=== PATIENT | male | born 1945 | race Hispanic/Latino ===

== ENCOUNTER 2016-10-05 07:35 | Day surgery (SDC) | payer MEDICARE, BC ==
[2016-10-05 08:28] VITALS: BMI 23.8
[2016-10-05 08:39] VITALS: TEMP 98.4
[2016-10-05] MEDS ORDERED: Propofol 10 mg/ml Inj (20 ML) ONE ×2 (10:13→10:21)
[2016-10-05] MEDS ORDERED: Midazolam 2 MG/2 ML VIAL ONE (10:13)
[2016-10-05 18:29] VITALS: O2SAT 95
[2016-10-05 18:39] VITALS: BP 106/74; PULSE 75; RESP 16
== END 2016-10-05 13:10 | disposition home or self-care (01) ==
LOC: C.ENDO 07:35
PROVIDERS: ATTEND Internal Medicine Gastroenterology
DX: D12.3 Benign neoplasm of transverse colon (principal); I85.00 Esophageal varices without bleeding; I86.4 Gastric varices; K22.70 Barrett's esophagus without dysplasia; K29.50 Unspecified chronic gastritis without bleeding; K64.8 Other hemorrhoids
CPT/HCPCS: 43239; 45385; 88305; 88312; 88313; 88342; J2001; J2250; J2704; J3010

== ENCOUNTER 2017-03-20 17:48 | Inpatient (IN) | payer MEDICARE, BC ==
[2017-03-20 17:48] VITALS: BMI 23.8
[2017-03-20] MEDS ORDERED: Dextrose 50% VIAL Inj (50 ml) IV ONE (18:02)
[2017-03-20] MEDS ORDERED: Lactated Ringer's 1,000 ML IVB STA (18:42)
[2017-03-20 19:01] LABS: BASO % 0.3 % (0.0-2.0); EOS % 0.3 % (0.0-4.0); HEMOGLOBIN 11.8 g/dL (12.0-18.0); LYMPH # 2.1 K/uL (1.0-4.3); LYMPH % 20.6 % (20.0-40.0); MEAN CORPUSCULAR HEMOGLOBIN 30.4 pg (27.0-31.0); MEAN CORPUSCULAR HGB CONC 34.3 g/dL (33.0-37.0); MEAN PLATELET VOLUME 8.3 fL (7.2-11.7); MONO # 0.3 K/uL (0.0-0.8); MONO % 2.9 % (0.0-10.0); NEUT # 7.6 K/uL (1.8-7.0); NEUT % 75.9 % (50.0-75.0); NRBC % 0.1 % (0.0-2.0); RBC 3.87 Mil/uL (4.40-5.90); RED CELL DISTRIBUTION WIDTH 13.3 % (11.5-14.5)
[2017-03-20 19:02] LABS: MEAN CELL VOLUME 88.7 fL (80.0-94.0)
[2017-03-20 19:09] LABS: SQUAMOUS EPITHIAL < 1 /hpf (0-5); URINE BACTERIA FEW (<OCC); URINE BILIRUBIN NEGATIVE (NEGATIVE); URINE CLARITY Hazy (Clear); URINE COLOR Amber (YELLOW); URINE GLUCOSE (UA) NORMAL (Normal); URINE HYALINE CAST >20 /lpf (0-2); URINE NITRATE NEGATIVE (NEGATIVE); URINE PROTEIN 1+ mg/dL (NEGATIVE); URINE UROBILINOGEN NORMAL mg/dL (0.2-1.0)
[2017-03-20 19:10] LABS: URINE BLOOD NEGATIVE (NEGATIVE); URINE LEUKOCYTE ESTERASE 1+ Leu/uL (Negative)
[2017-03-20 19:16] LABS: ALB/GLOB RATIO 1.1 (1.0-2.1); ALBUMIN 3.1 g/dL (3.5-5.0); ALT/SGPT 113 U/L (21-72); AST/SGOT 222 U/L (17-59); BLOOD UREA NITROGEN 88 mg/dL (9-20); CALCIUM 7.2 mg/dl (8.6-10.4); GFR AFRICAN-AMERICAN 10; GFR NON-AFRICAN AMERICAN 8; MAGNESIUM 1.5 mg/dL (1.6-2.3)
[2017-03-20 19:23] LABS: BARBITURATES, UR NEGATIVE (NEGATIVE); BENZODIAZEPINES, UR POSITIVE (NEGATIVE); OPIATES, UR POSITIVE (NEGATIVE); PHENCYCLIDINE, UR NEGATIVE (NEGATIVE)
[2017-03-20] MEDS ORDERED: Sodium Chloride 0.9% 1,000 ML IV ONE (19:23)
[2017-03-20 19:27] LABS: CK-MB 52.3 ng/mL (0.0-3.38)
[2017-03-20] MEDS ORDERED: Lactated Ringer's 1,000 ML ONE (20:57)
--- NOTE | 2017-03-20 21:05 | C.PDOC ---
History Of Present Illness Pt stopped taking opioid pain pills (that he was taking for his chronic back pain) 1 week ago. He then started developing N/V/D 3 days ago associate with generalized weakness. Time Seen by Provider: 03/20/17 18:27 Chief Complaint (Nursing): Dizziness/Lightheaded History Per: Patient, Family () History/Exam Limitations: clinical condition Onset/Duration Of Symptoms: Days (3) Current Symptoms Are (Timing): Worse Current Symptoms: Generalized weakness Seizure Or Post-ictal Symptoms: None Possible Causative Factor(s): Decreased PO Intake, Other (N/V/D) Fall Associated With With Symptoms: No Severity: Severe Additional History Per: Prior Records - Symptoms Of CVA Recent Head Trauma: No Past Medical History Reviewed: Historical Data, Nursing Documentation, Vital Signs Vital Signs: Last Vital Signs Temp 98.1 F 03/20/17 18:19 Pulse 90 03/20/17 20:28 Resp 16 03/20/17 20:28 BP 83/42 L 03/20/17 20:28 Pulse Ox 100 03/20/17 20:28 - Medical History PMH: Anxiety, Back Problems, HTN, Hypercholesterolemia, Malignancy (Prostate) - [employer] Procedures DX ULTRASOUND NEC (01/21/13) PERCUTAN NEEDLE BIOPSY OF PROSTATE (01/21/13) Family History: States: Unknown Family Hx - Social History Hx Tobacco Use: Yes Hx Alcohol Use: No Hx Substance Use: No - Immunization History Hx Tetanus Toxoid Vaccination: No Hx Influenza Vaccination: No Hx Pneumococcal Vaccination: No Review Of Systems Except As Marked, All Systems Reviewed And Found Negative. Constitutional: Positive for: Weakness, Malaise Cardiovascular: Positive for: Light Headedness. Negative for: Chest Pain Respiratory: Negative for: Shortness of Breath Gastrointestinal: Positive for: Nausea, Vomiting, Diarrhea. Negative for: Abdominal Pain, Melena, Hematochezia, Hematemesis Musculoskeletal: Positive for: Back Pain (chronic) Neurological: Negative for: Seizures Physical Exam - Physical Exam Appears: Toxic, Other (Lethargic) Skin: Normal Color, Warm, Dry, No Rash Head: Atraumatic, Normacephalic Eye(s): bilateral: PERRL, EOMI Oral Mucosa: Dry Neck: Normal ROM, Supple Cardiovascular: Rhythm Regular Respiratory: Normal Breath Sounds, No Accessory Muscle Use Gastrointestinal/Abdominal: Soft, No Tenderness Extremity: Normal ROM Neurological/Psych: Oriented x3, Normal Sensation, Slow To Respond With Command ED Course And Treatment - Laboratory Results Result Diagrams: 03/20/17 18:56 03/20/17 18:56 Lab Interpretation: Abnormal Interpretation Of Abnormal: Acute renal failure. Elevated CPK level. ECG: Interpreted By Me, Viewed By Me ECG Rhythm: Sinus Rhythm, Nonspecific Changes Rate From EC O2 Sat by Pulse Oximetry: 100 Pulse Ox Interpretation: Normal - Physician Consult Information Physician Contacted: Dustin Connell (ICU) Outcome Of Conversation: He evaluted pt in the ED and admitted to ICU. Progress - Interventions Interventions:: Observation, Intravenous fluid - Data Reviewed Data Reviewed: Lab, EKG, Old records - Patient Status Patient status: Partially improved - Critical Care Citical Care: Excluding Proc Time Critical Care Time: 60 minutes - Continuity of Care Discussed patient case with:: Patient, Family-HIPPA compliant, ED Nurse, Covering for PMD Discussed pt. case with customer support consultant/specialty: Pulmonary/Crit. Care - Patient Plan Patient Plan: Admission, ICU Disposition Discussed With : Edwin Tony Comment: He accepted pt on hospitalist service. Doctor Will See Patient In The: Hospital Counseled Patient/Family Regarding: Studies Performed, Diagnosis - Disposition Disposition: HOSPITALIZED Disposition Time: 21:09 Condition: SERIOUS - Clinical Impression Clinical Impression: Acute renal failure, Dehydration, severe, Rhabdomyolysis
[2017-03-20] MEDS ORDERED: Lactated Ringer's 1,000 ML IV ONE (21:07)
--- NOTE | 2017-03-20 21:07 | CP.PCM.HP ---
<Jojo Hogan - Last Filed: 03/20/17 22:42> History of Present Illness - History of Present Illness History of Present Illness: Medicine Note for Hospitalist Service CC: AMS HPI: 71 yo Male with 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, and Prostate Cancer ( received radiation therapy) was brought into the ED by his due to AMS. was called for history as patient's speech is slurred and incoherent. Patient has been seen by Pain Management for his chronic back pain for the past 6 months. He has been placed on oxycodone QID- he ran out of his medication last week. As per , the past week- patient has been experiencing nausea, vomiting, abdominal pain, diarrhea, weakness, and decrease in appetite. He has not been able to tolerate anything PO - except for water. He started to have tremors that started on Monday- at this point the patient was so fatigued - he was unable to ambulate on his own. As per - who was with him the whole time, patient did not fall or experience any trauma. Patient unable to provide ROS. 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 ( seen by pain management - was placed on Oxy), and Prostate Cancer (received radiation therapy) PSHx: Hernia repair x2, ganglion cyst x 2, left wrist surgery Meds: As per MAR, reviewed with and confirmed + oxycodone All: NKDA SHx: Used to drink 2-3 beers per day for 2-3 years when he was dianosed with prostate cancer ( he quit once he went into remission), denied tobacco use, used to use heroin (last use 2001, after detox) FHx: He was adopted PMD: Zachary Present on Admission - Present on Admission Any Indicators Present on Admission: No Past Patient History - Past Medical History & Family History Past Medical History?: Yes - Past Social History Smoking Status: Heavy Smoker > 10 Cigarettes Daily - CARDIAC Hx Hypercholesterolemia: Yes Hx Hypertension: Yes - PULMONARY Hx Respiratory Disorders: No - NEUROLOGICAL Hx Neurological Disorder: No - HEENT Hx HEENT Problems: No - RENAL Hx Chronic Kidney Disease: No - ENDOCRINE/METABOLIC Hx Endocrine Disorders: No - HEMATOLOGICAL/ONCOLOGICAL Hx Blood Disorders: No - INTEGUMENTARY Hx Dermatological Problems: No - MUSCULOSKELETAL/RHEUMATOLOGICAL Hx Musculoskeletal Disorders: No Hx Back Pain: Yes Hx Herniated Disk: Yes - GASTROINTESTINAL Hx Gastrointestinal Disorders: Yes Hx Hemorrhoids: Yes - GENITOURINARY/GYNECOLOGICAL Hx Genitourinary Disorders: Yes Hx Prostate Cancer: Yes (RADIATION) Hx Prostate Problems: Yes - PSYCHIATRIC Hx Anxiety: Yes Hx Substance Use: No - SURGICAL HISTORY Hx Surgeries: Yes Hx Herniorrhaphy: Yes Hx Orthopedic Surgery: Yes (LT WRIST SX X2) Other/Comment: PROSTATE BX - ANESTHESIA Hx Anesthesia: Yes Hx Anesthesia Reactions: No Hx Malignant Hyperthermia: No Meds Allergies/Adverse Reactions: Allergies Allergy/AdvReac Type Severity Reaction Status Date / Time No Known Allergies Allergy Verified 03/20/17 18:25 Physical Exam - Constitutional Appears: Confused - Head Exam Head Exam: NORMAL INSPECTION - Eye Exam Eye Exam: EOMI, Normal appearance, PERRL Pupil Exam: NORMAL ACCOMODATION - ENT Exam ENT Exam: Mucous Membranes Dry - Neck Exam Neck exam: Positive for: Normal Inspection - Respiratory Exam Respiratory Exam: Clear to Auscultation Bilateral, NORMAL BREATHING PATTERN. absent: Decreased Breath Sounds, Wheezes - Cardiovascular Exam Cardiovascular Exam: Tachycardia - GI/Abdominal Exam GI & Abdominal Exam: Normal Bowel Sounds, Soft. absent: Distended, Tenderness - Extremities Exam Extremities exam: Positive for: normal inspection, pedal pulses present. Negative for: pedal edema, tenderness - Neurological Exam Neurological exam: Alert, Altered, CN II-XII Intact - Psychiatric Exam Psychiatric exam: Normal Affect, Normal Mood - Skin Skin Exam: Dry, Intact, Normal Color, Warm Results - Vital Signs Recent Vital Signs: Last Vital Signs Temp 98.1 F 03/20/17 18:19 Pulse 93 H 03/20/17 21:02 Resp 18 03/20/17 21:02 BP 81/51 L 03/20/17 21:02 Pulse Ox 100 03/20/17 21:05 - Labs Result Diagrams: 03/20/17 18:56 03/20/17 18:56 Labs: Laboratory Results - last 24 hr 03/20/17 03/20/17 03/20/17 18:56 18:56 18:56 WBC 10.0 RBC 3.87 L Hgb 11.8 L D Hct 34.3 L MCV 88.7 D MCH 30.4 MCHC 34.3 RDW 13.3 Plt Count 211 MPV 8.3 Neut % (Auto) 75.9 H Lymph % (Auto) 20.6 Mills % (Auto) 2.9 Eos % (Auto) 0.3 Baso % (Auto) 0.3 Neut # 7.6 H Lymph # 2.1 Mills # 0.3 Eos # 0.0 Baso # 0.0 Sodium 124 L Potassium 3.8 Chloride 94 L Carbon Dioxide 16 L Anion Gap 18 BUN 88 H Creatinine 6.7 H Est GFR ( Amer) 10 Est GFR (Non-Af Amer) 8 POC Glucose (mg/dL) Random Glucose 198 H Calcium 7.2 L Phosphorus 5.7 H Magnesium 1.5 L Total Bilirubin 0.5 AST 222 H ALT 113 H D Alkaline Phosphatase 45 Total Creatine Kinase 20099 H CK-MB (Mass) 52.3 H Troponin I < 0.0120 Total Protein 5.9 L Albumin 3.1 L D Globulin 2.8 Albumin/Globulin Ratio 1.1 Urine Color María Elena Urine Clarity Hazy Urine pH 5.0 Ur Specific [place] 1.016 Urine Protein 1+ H Urine Glucose (UA) Normal Urine Ketones Negative Urine Blood Negative Urine Nitrate Negative Urine Bilirubin Negative Urine Urobilinogen Normal Ur Leukocyte Esterase 1+ H Urine WBC (Auto) 13 H Urine RBC (Auto) 2 Ur Squamous Epith Cells < 1 Ur Transition Epith Cell < 1 Urine Bacteria Few H Hyaline Casts >20 H Urine Opiates Screen Urine Methadone Screen Ur Barbiturates Screen Ur Phencyclidine Scrn Ur Amphetamines Screen U Benzodiazepines Scrn U Oth Cocaine Metabols U Cannabinoids Screen Alcohol, Quantitative < 10 03/20/17 03/20/17 03/20/17 18:56 19:00 20:43 WBC RBC Hgb Hct MCV MCH MCHC RDW Plt Count MPV Neut % (Auto) Lymph % (Auto) Mills % (Auto) Eos % (Auto) Baso % (Auto) Neut # Lymph # Mills # Eos # Baso # Sodium Potassium Chloride Carbon Dioxide Anion Gap BUN Creatinine Est GFR ( Amer) Est GFR (Non-Af Amer) POC Glucose (mg/dL) 197 H 128 H Random Glucose Calcium Phosphorus Magnesium Total Bilirubin AST ALT Alkaline Phosphatase Total Creatine Kinase CK-MB (Mass) Troponin I Total Protein Albumin Globulin Albumin/Globulin Ratio Urine Color Urine Clarity Urine pH Ur Specific [place] Urine Protein Urine Glucose (UA) Urine Ketones Urine Blood Urine Nitrate Urine Bilirubin Urine Urobilinogen Ur Leukocyte Esterase Urine WBC (Auto) Urine RBC (Auto) Ur Squamous Epith Cells Ur Transition Epith Cell Urine Bacteria Hyaline Casts Urine Opiates Screen Positive H Urine Methadone Screen Negative Ur Barbiturates Screen Negative Ur Phencyclidine Scrn Negative Ur Amphetamines Screen Negative U Benzodiazepines Scrn Positive U Oth Cocaine Metabols Negative U Cannabinoids Screen Negative Alcohol, Quantitative Assessment & Plan - Assessment and Plan (Free Text) Assessment: 71 yo Male with 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 Found to have ARF and Rhabdomyolysis. Plan: [place]domy[place]- 12085, CKMB 52.3, UA + hyaline casts LR @ 250 cc/hr Current management as per ICU ARF Secondary to dehydration and rhabdo Baseline BUN/CRE: 20/1.0 BUN/CRE on admission: 88/6.7 Received total 3L fluids in the ED Will continue to monitor renal function and electrolytes- if does not return to baseline - Nephro will be consulted Questionable Infiltrate Pending Chest, abdomen, pelvis CT Started on Doxy and Rocephin as per ICU team Electrolyte Imbalances Transaminitis GERD Hx HTN Will hold medications until patient becomes normotensive Hx HLD Will hold medications due to transaminitis Hx Prostate Cancer Hx Chronic Back Pain Opioid Dependance UDS + Prophylactic Measures GI PPX: Protonix 40mg IVP daily DVT PPX: Heparin Q12, SCDs DW Dr. Tony, Jojo Hogan DO, PGY-1 <Edwin Tony - Last Filed: 03/21/17 06:28> Results - Vital Signs Recent Vital Signs: Last Vital Signs Temp 98.3 F 03/21/17 04:00 Pulse 100 H 03/21/17 02:00 Resp 17 03/21/17 04:00 BP 82/49 L 03/21/17 01:34 Pulse Ox 99 03/21/17 04:00 - Labs Result Diagrams: 03/20/17 23:39 03/20/17 23:39 Labs: Laboratory Results - last 24 hr 03/20/17 03/20/17 03/20/17 18:56 18:56 18:56 WBC 10.0 RBC 3.87 L Hgb 11.8 L D Hct 34.3 L MCV 88.7 D MCH 30.4 MCHC 34.3 RDW 13.3 Plt Count 211 MPV 8.3 Neut % (Auto) 75.9 H Lymph % (Auto) 20.6 Mills % (Auto) 2.9 Eos % (Auto) 0.3 Baso % (Auto) 0.3 Neut # 7.6 H Lymph # 2.1 Mills # 0.3 Eos # 0.0 Baso # 0.0 Sodium 124 L Potassium 3.8 Chloride 94 L Carbon Dioxide 16 L Anion Gap 18 BUN 88 H Creatinine 6.7 H Est GFR ( Amer) 10 Est GFR (Non-Af Amer) 8 POC Glucose (mg/dL) Random Glucose 198 H Calcium 7.2 L Phosphorus 5.7 H Magnesium 1.5 L Total Bilirubin 0.5 AST 222 H ALT 113 H D Alkaline Phosphatase 45 Total Creatine Kinase 18773 H CK-MB (Mass) 52.3 H Troponin I < 0.0120 Total Protein 5.9 L Albumin 3.1 L D Globulin 2.8 Albumin/Globulin Ratio 1.1 Urine Color María Elena Urine Clarity Hazy Urine pH 5.0 Ur Specific [place] 1.016 Urine Protein 1+ H Urine Glucose (UA) Normal Urine Ketones Negative Urine Blood Negative Urine Nitrate Negative Urine Bilirubin Negative Urine Urobilinogen Normal Ur Leukocyte Esterase 1+ H Urine WBC (Auto) 13 H Urine RBC (Auto) 2 Ur Squamous Epith Cells < 1 Ur Transition Epith Cell < 1 Urine Bacteria Few H Hyaline Casts >20 H Urine Opiates Screen Urine Methadone Screen Ur Barbiturates Screen Ur Phencyclidine Scrn Ur Amphetamines Screen U Benzodiazepines Scrn U Oth Cocaine Metabols U Cannabinoids Screen Alcohol, Quantitative < 10 Influenza Typ A,B (EIA) 03/20/17 03/20/17 03/20/17 18:56 19:00 20:43 WBC RBC Hgb Hct MCV MCH MCHC RDW Plt Count MPV Neut % (Auto) Lymph % (Auto) Mills % (Auto) Eos % (Auto) Baso % (Auto) Neut # Lymph # Mills # Eos # Baso # Sodium Potassium Chloride Carbon Dioxide Anion Gap BUN Creatinine Est GFR ( Amer) Est GFR (Non-Af Amer) POC Glucose (mg/dL) 197 H 128 H Random Glucose Calcium Phosphorus Magnesium Total Bilirubin AST ALT Alkaline Phosphatase Total Creatine Kinase CK-MB (Mass) Troponin I Total Protein Albumin Globulin Albumin/Globulin Ratio Urine Color Urine Clarity Urine pH Ur Specific [place] Urine Protein Urine Glucose (UA) Urine Ketones Urine Blood Urine Nitrate Urine Bilirubin Urine Urobilinogen Ur Leukocyte Esterase Urine WBC (Auto) Urine RBC (Auto) Ur Squamous Epith Cells Ur Transition Epith Cell Urine Bacteria Hyaline Casts Urine Opiates Screen Positive H Urine Methadone Screen Negative Ur Barbiturates Screen Negative Ur Phencyclidine Scrn Negative Ur Amphetamines Screen Negative U Benzodiazepines Scrn Positive U Oth Cocaine Metabols Negative U Cannabinoids Screen Negative Alcohol, Quantitative Influenza Typ A,B (EIA) 03/20/17 03/20/17 03/20/17 23:39 23:39 23:56 WBC 9.7 RBC 4.18 L Hgb 12.9 Hct 37.5 MCV 89.6 MCH 30.9 MCHC 34.4 RDW 13.0 Plt Count 203 MPV 8.7 Neut % (Auto) 70.2 Lymph % (Auto) 24.8 Mills % (Auto) 3.9 Eos % (Auto) 0.4 Baso % (Auto) 0.7 Neut # 6.8 Lymph # 2.4 Mills # 0.4 Eos # 0.0 Baso # 0.1 Sodium 131 L Potassium 3.9 Chloride 101 Carbon Dioxide 17 L Anion Gap 16 BUN 80 H Creatinine 5.3 H Est GFR ( Amer) 13 Est GFR (Non-Af Amer) 11 POC Glucose (mg/dL) Random Glucose 75 Calcium 7.6 L Phosphorus 5.5 H Magnesium 1.6 Total Bilirubin 0.5 AST 230 H ALT 125 H Alkaline Phosphatase 48 Total Creatine Kinase CK-MB (Mass) Troponin I < 0.0120 Total Protein 6.3 Albumin 3.4 L Globulin 2.9 Albumin/Globulin Ratio 1.2 Urine Color Urine Clarity Urine pH Ur Specific [place] Urine Protein Urine Glucose (UA) Urine Ketones Urine Blood Urine Nitrate Urine Bilirubin Urine Urobilinogen Ur Leukocyte Esterase Urine WBC (Auto) Urine RBC (Auto) Ur Squamous Epith Cells Ur Transition Epith Cell Urine Bacteria Hyaline Casts Urine Opiates Screen Urine Methadone Screen Ur Barbiturates Screen Ur Phencyclidine Scrn Ur Amphetamines Screen U Benzodiazepines Scrn U Oth Cocaine Metabols U Cannabinoids Screen Alcohol, Quantitative Influenza Typ A,B (EIA) Negative for flu a/b Assessment & Plan - Date & Time Date: 03/21/17 (I have seen and examined the patient. I agree with the findings and plan of care as documented by Dr. Hogan. Patient with rhabdomyolysis and subsequent acute renal failure. Admit to ICU. IVF. Continue to monitor renal function. Consider nephro consult if renal function does not improve with continued IV hydration. Monitor for acute changes.) Time: 06:26 Attending/Attestation - Attestation I have personally seen and examined this patient.: Yes I have fully participated in the care of the patient.: Yes I have reviewed all pertinent clinical information: Yes
--- NOTE | 2017-03-20 22:58 | CT ---
EXAM: CT Chest Without Intravenous Contrast CLINICAL HISTORY: 71 years old, male; Signs and symptoms; Bloating; Cough; Symptoms not specified; Additional info: Infiltrate, ileus, urinary retention TECHNIQUE: Axial computed tomography images of the chest without intravenous contrast. All CT scans at this facility use one or more dose reduction techniques, viz.: automated exposure control; ma/kV adjustment per patient size (including targeted exams where dose is matched to indication; i.e. head); or iterative reconstruction technique. Coronal and sagittal reformatted images were created and reviewed. COMPARISON: No relevant prior studies available. FINDINGS: Limitations: Lack of intravenous contrast. Motion artifact - mild. Lungs: Mild paraseptal emphysematous changes. Multiple scattered patchy groundglass/airspace opacities. Minimal interlobular septal thickening. Pleural space: Trace bilateral pleural effusions/thickening. No pneumothorax. Heart: No cardiomegaly. No significant pericardial effusion. Coronary artery calcifications. Thyroid: Mild heterogeneity. 2.2 x 1.4 x 2.6 cm cyst or nodule within right lobe. Bones/joints: Degenerative changes and scoliosis of spine. No acute fracture. Soft tissues: Unremarkable. Vasculature: [id number] atherosclerotic disease of aorta. No aneurysm. Lymph nodes: Few subcentimeter short axis mediastinal lymph nodes. IMPRESSION: 1. Scattered groundglass/air space opacities. DDX: Pneumonia, pulmonary edema, interstitial lung disease, pneumonitis. Clinical correlation and follow up are recommended. 2. Thyroid nodule. Followup as clinically warranted. 3. Incidental/non-acute findings are described above. EXAM: CT Abdomen and Pelvis Without Intravenous Contrast CLINICAL HISTORY: 71 years old, male; Signs and symptoms; Bloating; Cough; Symptoms not specified; Additional info: Infiltrate, ileus, urinary retention TECHNIQUE: Axial computed tomography images of the abdomen and pelvis without intravenous contrast. All CT scans at this facility use one or more dose reduction techniques, viz.: automated exposure control; ma/kV adjustment per patient size (including targeted exams where dose is matched to indication; i.e. head); or iterative reconstruction technique. Coronal and sagittal reformatted images were created and reviewed. COMPARISON: No relevant prior studies available. FINDINGS: Limitations: Lack of intravenous contrast. Motion artifact - mild. ABDOMEN: Liver: Low-attenuation lesion with benign imaging features. Gallbladder and bile ducts: No calcified stones. No ductal dilation. Pancreas: Unremarkable. No ductal dilation. Spleen: Mild splenomegaly, AP dimension. Adrenals: No mass. Kidneys and ureters: Few probable RIGHT renal cysts. Small curvilinear calcification lower pole of right kidney. No hydronephrosis. Stomach and bowel: Asymmetric mural thickening versus underdistention body of stomach. Segmental areas of mild mural thickening vs underdistention of large bowel. No associated inflammatory stranding. No obstruction. Appendix: No definite findings to suggest acute appendicitis. PELVIS: Bladder: Apparent mild bladder wall thickening. Incomplete distention, limiting evaluation. Air within lumen. Reproductive: Mildly enlarged prostate. ABDOMEN and PELVIS: Intraperitoneal space: No significant fluid collection. No free air. Bones/joints: Degenerative changes and scoliosis of spine. No acute fracture. Soft tissues: Unremarkable. Vasculature: Moderate atherosclerotic disease. No aneurysm. Lymph nodes: No pathologically enlarged lymph nodes. IMPRESSION: 1. Mild colitis versus underdistention. Clinical correlation is needed. 2. Gastric wall thickening versus underdistention. Clinical correlation is needed. 3. Air within bladder lumen/possible wall thickening. Correlate with urinalysis to exclude infection. 4. Liver lesion. No follow-up is necessary. 5. Incidental/non-acute findings are described above.
[2017-03-20] MEDS: Lactated Ringer's 1,000 ML IV SCH (23:02)
[2017-03-20 23:43] LABS: BASO # 0.1 K/uL (0.0-0.2); BASO % 0.7 % (0.0-2.0); EOS % 0.4 % (0.0-4.0); HEMOGLOBIN 12.9 g/dL (12.0-18.0); LYMPH # 2.4 K/uL (1.0-4.3); LYMPH % 24.8 % (20.0-40.0); MEAN CELL VOLUME 89.6 fL (80.0-94.0); MEAN CORPUSCULAR HEMOGLOBIN 30.9 pg (27.0-31.0); MEAN CORPUSCULAR HGB CONC 34.4 g/dL (33.0-37.0); MEAN PLATELET VOLUME 8.7 fL (7.2-11.7); MONO # 0.4 K/uL (0.0-0.8); MONO % 3.9 % (0.0-10.0); NEUT # 6.8 K/uL (1.8-7.0); NEUT % 70.2 % (50.0-75.0); RBC 4.18 Mil/uL (4.40-5.90); WHITE BLOOD COUNT 9.7 K/uL (4.8-10.8)
[2017-03-20 23:56] LABS: ALB/GLOB RATIO 1.2 (1.0-2.1); ALBUMIN 3.4 g/dL (3.5-5.0); ALT/SGPT 125 U/L (21-72); AST/SGOT 230 U/L (17-59); BLOOD UREA NITROGEN 80 mg/dL (9-20); CALCIUM 7.6 mg/dl (8.6-10.4); GFR AFRICAN-AMERICAN 13; GFR NON-AFRICAN AMERICAN 11; MAGNESIUM 1.6 mg/dL (1.6-2.3)
[2017-03-21] MEDS ORDERED: Lactated Ringer's 1,000 ML IV ONE ×2 (01:37→06:18)
--- NOTE | 2017-03-21 01:45 | CP.PCM.CON ---
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 He also took some ibuprofen yesterday. No h/o fever or sick contacts , in ER patient received 2 lits blus fluid as he was severely dry, lab work showed anette, rhabdo, no blood in urine, urinary retention about 1000ml. Patient had tremors, lethargic weak tired but arousable. He has not taken his bp meds for last 2-3 days as well. 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 FHx: Patient is adopted hence not available Review of Systems - Review of Systems All systems: reviewed and no additional remarkable complaints except (HPI) Past Patient History - Past Medical History & Family History Past Medical History?: Yes - Past Social History Smoking Status: Heavy Smoker > 10 Cigarettes Daily Alcohol: None Home Situation {Lives}: With Family Domestic Violence: Negative - CARDIAC Hx Hypercholesterolemia: Yes Hx Hypertension: Yes - PULMONARY Hx Respiratory Disorders: No - NEUROLOGICAL Hx Neurological Disorder: No - HEENT Hx HEENT Problems: No - RENAL Hx Chronic Kidney Disease: No - ENDOCRINE/METABOLIC Hx Endocrine Disorders: No - HEMATOLOGICAL/ONCOLOGICAL Hx Blood Disorders: No - INTEGUMENTARY Hx Dermatological Problems: No - MUSCULOSKELETAL/RHEUMATOLOGICAL Hx Musculoskeletal Disorders: No Hx Back Pain: Yes Hx Herniated Disk: Yes - GASTROINTESTINAL Hx Gastrointestinal Disorders: Yes Hx Hemorrhoids: Yes - GENITOURINARY/GYNECOLOGICAL Hx Genitourinary Disorders: Yes Hx Prostate Cancer: Yes (RADIATION) Hx Prostate Problems: Yes - PSYCHIATRIC Hx Anxiety: Yes Hx Substance Use: No - SURGICAL HISTORY Hx Surgeries: Yes Hx Herniorrhaphy: Yes Hx Orthopedic Surgery: Yes (LT WRIST SX X2) Other/Comment: PROSTATE BX - ANESTHESIA Hx Anesthesia: Yes Hx Anesthesia Reactions: No Hx Malignant Hyperthermia: No Meds Allergies/Adverse Reactions: Allergies Allergy/AdvReac Type Severity Reaction Status Date / Time No Known Allergies Allergy Verified 03/20/17 18:25 - Medications Medications: Current Medications Heparin Sodium (Porcine) (Heparin) 5,000 units SC Q12 VINCE Pantoprazole Sodium (Protonix Inj) 40 mg IVP DAILY VINCE Physical Exam - Additional Findings Additional findings: * HEENT NELLY, very dry tongue * Neck supple * Chest Clear b/l * CVS regular, no gallop or rub * PA reduced bowel sounds, non tender, not distended post urinary cath * Ext no edema * Skin very dry, reduced turgor * [employer] tiered, some involuntary movements, arosable Results - Vital Signs Recent Vital Signs: Last Vital Signs Temp 98.5 F 03/20/17 21:50 Pulse 94 H 03/20/17 21:50 Resp 18 03/20/17 21:50 BP 85/51 L 03/20/17 21:50 Pulse Ox 100 03/20/17 21:50 - Labs Result Diagrams: 03/20/17 23:39 03/20/17 23:39 Labs: Laboratory Results - last 24 hr 03/20/17 03/20/17 03/20/17 18:56 18:56 18:56 WBC 10.0 RBC 3.87 L Hgb 11.8 L D Hct 34.3 L MCV 88.7 D MCH 30.4 MCHC 34.3 RDW 13.3 Plt Count 211 MPV 8.3 Neut % (Auto) 75.9 H Lymph % (Auto) 20.6 [place] % (Auto) 2.9 Eos % (Auto) 0.3 Baso % (Auto) 0.3 Neut # 7.6 H Lymph # 2.1 [place] # 0.3 Eos # 0.0 Baso # 0.0 Sodium 124 L Potassium 3.8 Chloride 94 L Carbon Dioxide 16 L Anion Gap 18 BUN 88 H Creatinine 6.7 H Est GFR ( Amer) 10 Est GFR (Non-Af Amer) 8 POC Glucose (mg/dL) Random Glucose 198 H Calcium 7.2 L Phosphorus 5.7 H Magnesium 1.5 L Total Bilirubin 0.5 AST 222 H ALT 113 H D Alkaline Phosphatase 45 Total Creatine Kinase 94786 H CK-MB (Mass) 52.3 H Troponin I < 0.0120 Total Protein 5.9 L Albumin 3.1 L D Globulin 2.8 Albumin/Globulin Ratio 1.1 Urine Color María Elena Urine Clarity Hazy Urine pH 5.0 Ur Specific [place] 1.016 Urine Protein 1+ H Urine Glucose (UA) Normal Urine Ketones Negative Urine Blood Negative Urine Nitrate Negative Urine Bilirubin Negative Urine Urobilinogen Normal Ur Leukocyte Esterase 1+ H Urine WBC (Auto) 13 H Urine RBC (Auto) 2 Ur Squamous Epith Cells < 1 Ur Transition Epith Cell < 1 Urine Bacteria Few H Hyaline Casts >20 H Urine Opiates Screen Urine Methadone Screen Ur Barbiturates Screen Ur Phencyclidine Scrn Ur Amphetamines Screen U Benzodiazepines Scrn U Oth Cocaine Metabols U Cannabinoids Screen Alcohol, Quantitative < 10 03/20/17 03/20/17 03/20/17 18:56 19:00 20:43 WBC RBC Hgb Hct MCV MCH MCHC RDW Plt Count MPV Neut % (Auto) Lymph % (Auto) [place] % (Auto) Eos % (Auto) Baso % (Auto) Neut # Lymph # [place] # Eos # Baso # Sodium Potassium Chloride Carbon Dioxide Anion Gap BUN Creatinine Est GFR ( Amer) Est GFR (Non-Af Amer) POC Glucose (mg/dL) 197 H 128 H Random Glucose Calcium Phosphorus Magnesium Total Bilirubin AST ALT Alkaline Phosphatase Total Creatine Kinase CK-MB (Mass) Troponin I Total Protein Albumin Globulin Albumin/Globulin Ratio Urine Color Urine Clarity Urine pH Ur Specific [place] Urine Protein Urine Glucose (UA) Urine Ketones Urine Blood Urine Nitrate Urine Bilirubin Urine Urobilinogen Ur Leukocyte Esterase Urine WBC (Auto) Urine RBC (Auto) Ur Squamous Epith Cells Ur Transition Epith Cell Urine Bacteria Hyaline Casts Urine Opiates Screen Positive H Urine Methadone Screen Negative Ur Barbiturates Screen Negative Ur Phencyclidine Scrn Negative Ur Amphetamines Screen Negative U Benzodiazepines Scrn Positive U Oth Cocaine Metabols Negative U Cannabinoids Screen Negative Alcohol, Quantitative Assessment & Plan - Assessment and Plan (Free Text) Assessment: * ANETTE likely prerenal with additional stress of retention, rhabdo, nsaid, and h /o being on ACEI/hctz but not taken for 2 days * Volume loss due to poor intake and diarrhea * Above due to opiod withdrawal as patient running out of his oxycontin * Suspected ileus for diarrhea on exam * CXR showing infiltrate will check CT chest * H/o HTN currently hypotensive, h/o prostate cancer s/p radiation, h/o gerd, Osvaldo's esophagus, spine DJD * Tobacco abuse Plan: * Aggressive IVF avoid hyperchloremic acidosis * one BP improves start low dose methadone * Abd/pelvis CT to check for ileus * Chest CT due to abnormal CXR with suspicion of infiltrate empiric abx started rocephin, doxycycline * Continue hanna * GI/DVT prophylaxis * See orders for detail
[2017-03-21] MEDS: Lactated Ringer's 1,000 ML IV SCH ×4 (05:15→19:09)
--- NOTE | 2017-03-21 06:22 | CP.PCM.PN ---
Subjective - Date & Time of Evaluation Date of Evaluation: 03/21/17 Time of Evaluation: 06:20 - Subjective Subjective: Patient urinating excessively about 4000ml since seen in ER, appears as post ATN or obstructive diuresis, will check spgr, lytes, bolus RL 1 lit, f/u am labs. Objective - Vital Signs/Intake and Output Vital Signs (last 24 hours): Temp Pulse Resp BP Pulse Ox 98.3 F 100 H 17 82/49 L 99 03/21/17 04:00 03/21/17 02:00 03/21/17 04:00 03/21/17 01:34 03/21/17 04:00 Intake and Output: 03/20/17 03/21/17 18:59 06:59 Intake Total 2100 Output Total 1950 Balance 150 - Medications Medications: Current Medications Heparin Sodium (Porcine) (Heparin) 5,000 units SC Q12 [facility] Last Admin: 03/20/17 23:01 Dose: 5,000 units Doxycycline Hyclate 100 mg/ (Sodium Chloride) 100 mls @ 100 mls/hr IVPB Q12H VINCE Last Admin: 03/20/17 23:15 Dose: 100 mls/hr Lactated Ringer's (Lactated Ringer's) 1,000 mls @ 250 mls/hr IV .Q4H VINCE Last Admin: 03/21/17 05:15 Dose: 250 mls/hr Ceftriaxone Sodium 1 gm/ (Sodium Chloride) 100 mls @ 100 mls/hr IVPB DAILY VINCE Lactated Ringer's (Lactated Ringer's) 1,000 mls @ 1,000 mls/hr IV .Q1H ONE Stop: 03/21/17 07:17 Pantoprazole Sodium (Protonix Inj) 40 mg IVP DAILY VINCE - Labs Labs: 03/20/17 23:39 03/20/17 23:39
[2017-03-21 06:56] LABS: BASO # 0.1 K/uL (0.0-0.2); BASO % 0.6 % (0.0-2.0); EOS % 0.3 % (0.0-4.0); HEMOGLOBIN 11.2 g/dL (12.0-18.0); LYMPH # 2.2 K/uL (1.0-4.3); LYMPH % 21.8 % (20.0-40.0); MEAN CELL VOLUME 88.6 fL (80.0-94.0); MEAN CORPUSCULAR HEMOGLOBIN 31.1 pg (27.0-31.0); MEAN CORPUSCULAR HGB CONC 35.1 g/dL (33.0-37.0); MONO # 0.4 K/uL (0.0-0.8); MONO % 4.1 % (0.0-10.0); NEUT # 7.4 K/uL (1.8-7.0); NEUT % 73.2 % (50.0-75.0); RBC 3.59 Mil/uL (4.40-5.90); RED CELL DISTRIBUTION WIDTH 13.2 % (11.5-14.5); WHITE BLOOD COUNT 10.1 K/uL (4.8-10.8)
[2017-03-21 07:01] LABS: URINE BACTERIA RARE (<OCC); URINE BILIRUBIN NEGATIVE (NEGATIVE); URINE BLOOD 3+ (NEGATIVE); URINE CLARITY Clear (Clear); URINE COLOR Yellow (YELLOW); URINE GLUCOSE (UA) NORMAL (Normal); URINE LEUKOCYTE ESTERASE TRACE Leu/uL (Negative); URINE NITRATE NEGATIVE (NEGATIVE); URINE PROTEIN 1+ mg/dL (NEGATIVE); URINE UROBILINOGEN NORMAL mg/dL (0.2-1.0)
[2017-03-21 07:10] LABS: CREATININE, RANDOM URINE 54.9 mg/dL
[2017-03-21 07:22] LABS: ALBUMIN 2.9 g/dL (3.5-5.0); CALCIUM 7.6 mg/dl (8.6-10.4); MAGNESIUM 1.4 mg/dL (1.6-2.3)
--- NOTE | 2017-03-21 08:28 | RAD ---
HISTORY: Renal failure COMPARISON: 01/09/2014 FINDINGS: LUNGS: Lung volumes low-normal. Pulmonary vascular congestion present. Coalescing airspace opacities right perihilar to right upper lung zone are all findings are new. PLEURA: No significant pleural effusion identified, no pneumothorax apparent. CARDIOVASCULAR: Cardiomegaly. Tortuous unfolded calcified thoracic aorta. Pulmonary venous congestion - pulmonary edema suggested OSSEOUS STRUCTURES: Bilateral shoulder arthrosis right greater than left. Scoliosis VISUALIZED UPPER ABDOMEN: Normal. OTHER FINDINGS: None. IMPRESSION: Interval pulmonary venous congestion -pulmonary edema inferred. Cardiomegaly. Volume overload in associations with renal failure probable Right upper lobe coalescent pulmonary edema versus infiltrate. Scoliosis and shoulder arthrosis
[2017-03-21] MEDS ORDERED: Magnesium Oxide 400 mg Tab UD PO ONE (10:48)
--- NOTE | 2017-03-21 11:56 | VASCLAB ---
PROCEDURE: Lower Extremity Venous Duplex Exam. HISTORY: Swelling PRIORS: None. TECHNIQUE: Bilateral common femoral, femoral, popliteal and posterior tibial, peroneal and great saphenous veins were evaluated. Flow was assessed with color Doppler, compressibility, assessment of phasic flow and augmentation response. Report prepared by LOURDES Jane, RVT FINDINGS: RIGHT: 1. Common Femoral Vein: 1.1. Compressibility - Fully compressible: Thrombus - None : Flow - Phasic: Augmentation -Normal: Reflux - None. 2. Femoral Vein: 2.1. Compressibility - Fully compressible: Thrombus - None : Flow - Phasic: Augmentation -Normal: Reflux - None. 3. Popliteal Vein: 3.1. Compressibility - Fully compressible: Thrombus - None : Flow - Phasic: Augmentation -Normal: Reflux - None. 4. Posterior Tibial Vein: 4.1. Compressibility - Fully compressible: Thrombus - None: Flow - Phasic: Augmentation -Normal: Reflux - None. 5. Peroneal Vein: 5.1. Compressibility - Fully compressible: Thrombus - None: Flow - Phasic: Augmentation -Normal: Reflux - None. 6. Great Saphenous Vein: 6.1. Compressibility - Fully compressible: Thrombus - None: Flow - Phasic: Augmentation - Normal: Reflux - None. LEFT: 1. Common Femoral Vein: 1.1. Compressibility - Fully compressible: Thrombus - None: Flow - Phasic: Augmentation -Normal: Reflux - None. 2. Femoral Vein: 2.1. Compressibility - Fully compressible: Thrombus - None: Flow - Phasic: Augmentation -Normal: Reflux - None. 3. Popliteal Vein: 3.1. Compressibility - Fully compressible: Thrombus - None : Flow - Phasic: Augmentation -Normal: Reflux - None. 4. Posterior Tibial Vein: 4.1. Compressibility - Fully compressible: Thrombus - None: Flow - Phasic: Augmentation -Normal: Reflux - None. 5. Peroneal Vein: 5.1. Compressibility - Fully compressible: Thrombus - None: Flow - Phasic: Augmentation -Normal: Reflux - None. 6. Great Saphenous Vein: 6.1. Compressibility - Fully compressible: Thrombus - None: Flow - Phasic: Augmentation - Normal: Reflux - None. OTHER FINDINGS: Right: None significant. Left: None significant. IMPRESSION: Right: No evidence of deep or superficial vein thrombosis of the right lower extremity. Normal valve function noted of the right side. Left: No evidence of deep or superficial vein thrombosis of the left lower extremity. Normal valve function noted of the left side.
--- NOTE | 2017-03-21 12:56 | CP.PCM.CON ---
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 He also took some ibuprofen yesterday. No h/o fever or sick contacts , in ER patient received 2 lits blus fluid as he was severely dry, urinary retention about 1000ml. Patient had tremors, lethargic weak tired but arousable. He has not taken his bp meds for last 2-3 days as well. currently on iv fluids, creatinine improved on labs. 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 FHx: Patient is adopted hence not available Review of Systems - Review of Systems All systems: reviewed and no additional remarkable complaints except (as per HPI ) Past Patient History - Past Medical History & Family History Past Medical History?: Yes - Past Social History Smoking Status: Heavy Smoker > 10 Cigarettes Daily Alcohol: None Home Situation {Lives}: With Family Domestic Violence: Negative - CARDIAC Hx Hypercholesterolemia: Yes Hx Hypertension: Yes - PULMONARY Hx Respiratory Disorders: No - NEUROLOGICAL Hx Neurological Disorder: No - HEENT Hx HEENT Problems: No - RENAL Hx Chronic Kidney Disease: No - ENDOCRINE/METABOLIC Hx Endocrine Disorders: No - HEMATOLOGICAL/ONCOLOGICAL Hx Blood Disorders: No - INTEGUMENTARY Hx Dermatological Problems: No - MUSCULOSKELETAL/RHEUMATOLOGICAL Hx Musculoskeletal Disorders: No Hx Back Pain: Yes Hx Herniated Disk: Yes - GASTROINTESTINAL Hx Gastrointestinal Disorders: Yes Hx Hemorrhoids: Yes - GENITOURINARY/GYNECOLOGICAL Hx Genitourinary Disorders: Yes Hx Prostate Cancer: Yes (RADIATION) Hx Prostate Problems: Yes - PSYCHIATRIC Hx Anxiety: Yes Hx Substance Use: No - SURGICAL HISTORY Hx Surgeries: Yes Hx Herniorrhaphy: Yes Hx Orthopedic Surgery: Yes (LT WRIST SX X2) Other/Comment: PROSTATE BX - ANESTHESIA Hx Anesthesia: Yes Hx Anesthesia Reactions: No Hx Malignant Hyperthermia: No Meds Allergies/Adverse Reactions: Allergies Allergy/AdvReac Type Severity Reaction Status Date / Time No Known Allergies Allergy Verified 03/20/17 18:25 - Medications Medications: Current Medications Heparin Sodium (Porcine) (Heparin) 5,000 units SC Q12 [facility] Last Admin: 03/21/17 09:38 Dose: 5,000 units Doxycycline Hyclate 100 mg/ (Sodium Chloride) 100 mls @ 100 mls/hr IVPB Q12H [facility] Last Admin: 03/21/17 10:52 Dose: 100 mls/hr Ceftriaxone Sodium 1 gm/ (Sodium Chloride) 100 mls @ 100 mls/hr IVPB DAILY [facility] Last Admin: 03/21/17 09:08 Dose: 100 mls/hr Lactated Ringer's (Lactated Ringer's) 1,000 mls @ 125 mls/hr IV .Q8H [facility] Pantoprazole Sodium (Protonix Inj) 40 mg IVP DAILY [facility] Last Admin: 03/21/17 09:38 Dose: 40 mg Physical Exam - Constitutional Appears: Non-toxic, No Acute Distress, Unkempt - Head Exam Head Exam: NORMAL INSPECTION - Eye Exam Eye Exam: Normal appearance Pupil Exam: PERRL - ENT Exam ENT Exam: Mucous Membranes Moist, Normal Exam - Neck Exam Neck exam: Positive for: Normal Inspection - Respiratory Exam Respiratory Exam: Clear to Auscultation Bilateral, NORMAL BREATHING PATTERN - Cardiovascular Exam Cardiovascular Exam: REGULAR RHYTHM, RRR - GI/Abdominal Exam GI & Abdominal Exam: Distended, Normal Bowel Sounds, Soft - Exam Exam: NORMAL INSPECTION (hanna in place) - Extremities Exam Extremities exam: Positive for: normal inspection, pedal pulses present - Neurological Exam Neurological exam: Alert, Oriented x3 - Psychiatric Exam Psychiatric exam: Normal Affect, Normal Mood - Skin Skin Exam: Intact, Normal Color, Warm Results - Vital Signs Recent Vital Signs: Last Vital Signs Temp 98.4 F 03/21/17 08:00 Pulse 100 H 03/21/17 02:00 Resp 17 03/21/17 04:00 BP 82/49 L 03/21/17 01:34 Pulse Ox 99 03/21/17 04:00 - Labs Result Diagrams: 03/21/17 06:48 03/21/17 12:07 Labs: Laboratory Results - last 24 hr 03/20/17 03/20/17 03/20/17 18:56 18:56 18:56 WBC 10.0 RBC 3.87 L Hgb 11.8 L D Hct 34.3 L MCV 88.7 D MCH 30.4 MCHC 34.3 RDW 13.3 Plt Count 211 MPV 8.3 Neut % (Auto) 75.9 H Lymph % (Auto) 20.6 [place] % (Auto) 2.9 Eos % (Auto) 0.3 Baso % (Auto) 0.3 Neut # 7.6 H Lymph # 2.1 [place] # 0.3 Eos # 0.0 Baso # 0.0 Sodium 124 L Potassium 3.8 Chloride 94 L Carbon Dioxide 16 L Anion Gap 18 BUN 88 H Creatinine 6.7 H Est GFR ( Amer) 10 Est GFR (Non-Af Amer) 8 POC Glucose (mg/dL) Random Glucose 198 H Calcium 7.2 L Phosphorus 5.7 H Magnesium 1.5 L Total Bilirubin 0.5 AST 222 H ALT 113 H D Alkaline Phosphatase 45 Total Creatine Kinase 78495 H CK-MB (Mass) 52.3 H Troponin I < 0.0120 Total Protein 5.9 L Albumin 3.1 L D Globulin 2.8 Albumin/Globulin Ratio 1.1 Urine Color María Elena Urine Clarity Hazy Urine pH 5.0 Ur Specific [place] 1.016 Urine Protein 1+ H Urine Glucose (UA) Normal Urine Ketones Negative Urine Blood Negative Urine Nitrate Negative Urine Bilirubin Negative Urine Urobilinogen Normal Ur Leukocyte Esterase 1+ H Urine WBC (Auto) 13 H Urine RBC (Auto) 2 Ur Squamous Epith Cells < 1 Ur Transition Epith Cell < 1 Urine Bacteria Few H Hyaline Casts >20 H Ur Random Creatinine Ur Random Sodium Ur Random Potassium Urine Opiates Screen Urine Methadone Screen Ur Barbiturates Screen Ur Phencyclidine Scrn Ur Amphetamines Screen U Benzodiazepines Scrn U Oth Cocaine Metabols U Cannabinoids Screen Alcohol, Quantitative < 10 Influenza Typ A,B (EIA) 03/20/17 03/20/17 03/20/17 18:56 19:00 20:43 WBC RBC Hgb Hct MCV MCH MCHC RDW Plt Count MPV Neut % (Auto) Lymph % (Auto) [place] % (Auto) Eos % (Auto) Baso % (Auto) Neut # Lymph # [place] # Eos # Baso # Sodium Potassium Chloride Carbon Dioxide Anion Gap BUN Creatinine Est GFR ( Amer) Est GFR (Non-Af Amer) POC Glucose (mg/dL) 197 H 128 H Random Glucose Calcium Phosphorus Magnesium Total Bilirubin AST ALT Alkaline Phosphatase Total Creatine Kinase CK-MB (Mass) Troponin I Total Protein Albumin Globulin Albumin/Globulin Ratio Urine Color Urine Clarity Urine pH Ur Specific [place] Urine Protein Urine Glucose (UA) Urine Ketones Urine Blood Urine Nitrate Urine Bilirubin Urine Urobilinogen Ur Leukocyte Esterase Urine WBC (Auto) Urine RBC (Auto) Ur Squamous Epith Cells Ur Transition Epith Cell Urine Bacteria Hyaline Casts Ur Random Creatinine Ur Random Sodium Ur Random Potassium Urine Opiates Screen Positive H Urine Methadone Screen Negative Ur Barbiturates Screen Negative Ur Phencyclidine Scrn Negative Ur Amphetamines Screen Negative U Benzodiazepines Scrn Positive U Oth Cocaine Metabols Negative U Cannabinoids Screen Negative Alcohol, Quantitative Influenza Typ A,B (EIA) 03/20/17 03/20/17 03/20/17 23:39 23:39 23:56 WBC 9.7 RBC 4.18 L Hgb 12.9 Hct 37.5 MCV 89.6 MCH 30.9 MCHC 34.4 RDW 13.0 Plt Count 203 MPV 8.7 Neut % (Auto) 70.2 Lymph % (Auto) 24.8 [place] % (Auto) 3.9 Eos % (Auto) 0.4 Baso % (Auto) 0.7 Neut # 6.8 Lymph # 2.4 [place] # 0.4 Eos # 0.0 Baso # 0.1 Sodium 131 L Potassium 3.9 Chloride 101 Carbon Dioxide 17 L Anion Gap 16 BUN 80 H Creatinine 5.3 H Est GFR ( Amer) 13 Est GFR (Non-Af Amer) 11 POC Glucose (mg/dL) Random Glucose 75 Calcium 7.6 L Phosphorus 5.5 H Magnesium 1.6 Total Bilirubin 0.5 AST 230 H ALT 125 H Alkaline Phosphatase 48 Total Creatine Kinase CK-MB (Mass) Troponin I < 0.0120 Total Protein 6.3 Albumin 3.4 L Globulin 2.9 Albumin/Globulin Ratio 1.2 Urine Color Urine Clarity Urine pH Ur Specific [place] Urine Protein Urine Glucose (UA) Urine Ketones Urine Blood Urine Nitrate Urine Bilirubin Urine Urobilinogen Ur Leukocyte Esterase Urine WBC (Auto) Urine RBC (Auto) Ur Squamous Epith Cells Ur Transition Epith Cell Urine Bacteria Hyaline Casts Ur Random Creatinine Ur Random Sodium Ur Random Potassium Urine Opiates Screen Urine Methadone Screen Ur Barbiturates Screen Ur Phencyclidine Scrn Ur Amphetamines Screen U Benzodiazepines Scrn U Oth Cocaine Metabols U Cannabinoids Screen Alcohol, Quantitative Influenza Typ A,B (EIA) Negative for flu a/b 03/21/17 03/21/17 03/21/17 06:48 06:49 06:52 WBC 10.1 RBC 3.59 L Hgb 11.2 L Hct 31.8 L MCV 88.6 MCH 31.1 H MCHC 35.1 RDW 13.2 Plt Count 209 MPV 9.0 Neut % (Auto) 73.2 Lymph % (Auto) 21.8 [place] % (Auto) 4.1 Eos % (Auto) 0.3 Baso % (Auto) 0.6 Neut # 7.4 H Lymph # 2.2 Webb # 0.4 Eos # 0.0 Baso # 0.1 Sodium 135 Potassium 4.0 Chloride 106 Carbon Dioxide 18 L Anion Gap 15 BUN 63 H Creatinine 2.8 H Est GFR ( Amer) 27 Est GFR (Non-Af Amer) 23 POC Glucose (mg/dL) Random Glucose 89 Calcium 7.6 L Phosphorus 4.5 Magnesium 1.4 L Total Bilirubin 0.7 AST 185 H ALT 108 H Alkaline Phosphatase 50 Total Creatine Kinase CK-MB (Mass) Troponin I Total Protein 5.8 L Albumin 2.9 L Globulin 2.8 Albumin/Globulin Ratio 1.0 Urine Color Yellow Urine Clarity Clear Urine pH 5.0 Ur Specific [place] 1.010 Urine Protein 1+ H Urine Glucose (UA) Normal Urine Ketones Trace Urine Blood 3+ H Urine Nitrate Negative Urine Bilirubin Negative Urine Urobilinogen Normal Ur Leukocyte Esterase Trace Urine WBC (Auto) 14 H Urine RBC (Auto) 52 H Ur Squamous Epith Cells Ur Transition Epith Cell Urine Bacteria Rare Hyaline Casts Ur Random Creatinine Ur Random Sodium Ur Random Potassium Urine Opiates Screen Urine Methadone Screen Ur Barbiturates Screen Ur Phencyclidine Scrn Ur Amphetamines Screen U Benzodiazepines Scrn U Oth Cocaine Metabols U Cannabinoids Screen Alcohol, Quantitative Influenza Typ A,B (EIA) 03/21/17 03/21/17 06:52 12:07 WBC RBC Hgb Hct MCV MCH MCHC RDW Plt Count MPV Neut % (Auto) Lymph % (Auto) [place] % (Auto) Eos % (Auto) Baso % (Auto) Neut # Lymph # [place] # Eos # Baso # Sodium 134 Potassium 3.5 L Chloride 104 Carbon Dioxide 21 L Anion Gap 12 BUN 50 H Creatinine 2.0 H Est GFR ( Amer) 40 Est GFR (Non-Af Amer) 33 POC Glucose (mg/dL) Random Glucose 92 Calcium 8.0 L Phosphorus Magnesium Total Bilirubin AST ALT Alkaline Phosphatase Total Creatine Kinase CK-MB (Mass) Troponin I Total Protein Albumin Globulin Albumin/Globulin Ratio Urine Color Urine Clarity Urine pH Ur Specific [place] Urine Protein Urine Glucose (UA) Urine Ketones Urine Blood Urine Nitrate Urine Bilirubin Urine Urobilinogen Ur Leukocyte Esterase Urine WBC (Auto) Urine RBC (Auto) Ur Squamous Epith Cells Ur Transition Epith Cell Urine Bacteria Hyaline Casts Ur Random Creatinine 54.9 Ur Random Sodium 86 Ur Random Potassium 11.4 Urine Opiates Screen Urine Methadone Screen Ur Barbiturates Screen Ur Phencyclidine Scrn Ur Amphetamines Screen U Benzodiazepines Scrn U Oth Cocaine Metabols U Cannabinoids Screen Alcohol, Quantitative Influenza Typ A,B (EIA) Assessment & Plan (1) Acute renal failure Status: Acute (2) Dehydration, severe Status: Acute (3) Rhabdomyolysis Status: Acute (4) Urinary retention Status: Acute - Assessment and Plan (Free Text) Assessment: - maintain iv fluids - watch na levels - ua -trend cpk -avoid nephrotoxic meds -void trial and hanna removal -check psa
[2017-03-21] MEDS ORDERED: Potassium Chloride 20 mEq ER Tab PO ONE ×2 (13:15→15:00)
--- NOTE | 2017-03-21 15:40 | CP.PCM.PN ---
Subjective - Date & Time of Evaluation Date of Evaluation: 03/21/17 Time of Evaluation: 14:00 - Subjective Subjective: Medical Attending Note: Patient seen, examined, and case discussed with ICU. Patient seen at bedside with his . Patient permits me to speak in regards to his medical information with his present. Patient reports history of chronic back problems wherein he has been on oxycodone and MScontin for least 6-7 months. Patient ran out of his medications this past Monday. Patient's reports on Monday patient was between throwing up and diarrhea, associated sweats up until Monday day. Patient was unable to tolerate anything by mouth. Patient and do regularly eat take out. ROS; denies headache, denies chest pain, denies palpitations, denies abdominal pain, denies nausea, denies vomitting, patient currently has a hanna at bedside , patient denies numbness, denies thingling. Objective - Vital Signs/Intake and Output Vital Signs (last 24 hours): Temp Pulse Resp BP Pulse Ox 98.4 F 100 H 17 82/49 L 99 03/21/17 08:00 03/21/17 02:00 03/21/17 04:00 03/21/17 01:34 03/21/17 04:00 Intake and Output: 03/21/17 03/21/17 06:59 18:59 Intake Total 2975 2010 Output Total 2430 2560 Balance 545 -550 - Medications Medications: Current Medications Heparin Sodium (Porcine) (Heparin) 5,000 units SC Q12 [facility] Last Admin: 03/21/17 09:38 Dose: 5,000 units Doxycycline Hyclate 100 mg/ (Sodium Chloride) 100 mls @ 100 mls/hr IVPB Q12H [facility] Last Admin: 03/21/17 10:52 Dose: 100 mls/hr Ceftriaxone Sodium 1 gm/ (Sodium Chloride) 100 mls @ 100 mls/hr IVPB DAILY [facility] Last Admin: 03/21/17 09:08 Dose: 100 mls/hr Lactated Ringer's (Lactated Ringer's) 1,000 mls @ 125 mls/hr IV .Q8H [facility] Last Admin: 03/21/17 11:00 Dose: 125 mls/hr Pantoprazole Sodium (Protonix Inj) 40 mg IVP DAILY [facility] Last Admin: 03/21/17 09:38 Dose: 40 mg - Labs Labs: 03/21/17 06:48 03/21/17 12:07 - Constitutional Appears: Non-toxic, No Acute Distress - Head Exam Head Exam: NORMAL INSPECTION - Eye Exam Eye Exam: EOMI - ENT Exam ENT Exam: Mucous Membranes Moist - Respiratory Exam Respiratory Exam: Clear to Ausculation Bilateral, NORMAL BREATHING PATTERN. absent: Rales, Rhonchi, Wheezes - Cardiovascular Exam Cardiovascular Exam: REGULAR RHYTHM, +S1, +S2 - GI/Abdominal Exam GI & Abdominal Exam: Soft, Normal Bowel Sounds. absent: Distended, Firm, Guarding, Rigid, Tenderness, Rebound - Exam Additional comments: has hanna - Extremities Exam Extremities Exam: Normal Capillary Refill. absent: Pedal Edema, Tenderness - Back Exam Back Exam: absent: CVA tenderness (L), CVA tenderness (R) - Neurological Exam Neurological Exam: Alert, Awake, Oriented x3 - Psychiatric Exam Psychiatric exam: Normal Affect, Normal Mood - Skin Skin Exam: Dry, Intact, Normal Color, Warm Assessment and Plan (1) Acute renal failure Status: Acute (2) Hypertension Status: Acute (3) Lipid disorder Status: Acute (4) GERD (gastroesophageal reflux disease) Status: Acute (5) Chronic back pain Status: Acute (6) Narcotic drug use Status: Acute (7) Prostate cancer Status: Acute (8) Rhabdomyolysis Status: Acute (9) Prophylactic measure Status: Acute Attending/Attestation - Attestation I have personally seen and examined this patient.: Yes I have fully participated in the care of the patient.: Yes I have reviewed all pertinent clinical information, including history, physical exam and plan: Yes Notes (Text): Assessment/Plan 1) Acute Renal Failure * Patient initially presented with BUN/Cr: 88/6.7 * Has required multiple fluid boluses in 24 hours * Improving * Patient has Hanna * Patient is making urine * Nephrology (Dr. Ramon) on the case-->help appreciated * CT Chest: scattered ground/glass air space opacities. Thryoid nodule. * CT abdomen/pelvis (03/20/17); mild colitis versus underdistension. Gastric wall thcikiening. Air within bladder lumen/possible wall thickening. liver lesion. * Monitor urine output * LR 125cc/hr 2) Rhabdomyolosis * Total CPK: 37151 * Monitor CPK Daily 3) Transaminitis * Downtrending * Previously on Oxycodone-Tylenol 10-325 (02/18/17) 120 tabs-->30 days * Hepatitis panel ordered 4) Colitis * Suspected secondary to opiate withdrawal * Order for stool culture, ova and parasite, fecal leukocytes, and C. Dif toxin pending * CT abdomen/pelvis (03/20/17); mild colitis versus underdistension. Gastric wall thcikiening. Air within bladder lumen/possible wall thickening. liver lesion. * Rocephin 1 gram IVq daily (active since 03/21/17) * Doxycyline 100mg IVPB Q12H (active since 03/21/17) * Recent endoscopy/colonoscopy by Dr. Coelho's group * EGD: esophageal mucosal chages as ambrose's stage. Biopsied. Non-severe reflux esophagitis. Gastric varcies. gastritis.-->Negative H. pylori, negative dysplasia, positive Ambrose's * Colonoscopy: 4mm polyp and 9mm polyp removed and internal hemorrhoids--> tubular adenoma 5) Hypertension * Patient was previously taking Atenolol/Lisinopril/HCTZ for blood pressure control at home * They are on hold given he was hypotensive on admission 6) History Lipid Disorder * patient is on previously Simvastatin prior home. * On hold during hospitalization * patient is in rhabdomyolysis, unclear if statin is contributing 6) History of Gastritis * Protonix 40mg IV q daily 7) Chronic Back Pain * History of lumbar stenosis, arthritis-->was recommended for neurosurgery in the past but declined; attempted to eval for noninvasive procedure however, expensive for the patient * [facility] * Lyria 100mg Po daily (03/03/17)--90 tabs; 30 days * Oxycodone 15mg ()-->60 tabs--15 days * Xanax 1mg (02/23/17) 90 tabs-->30 days * Morphine sulfate ER 30mg Po (02/18/17) 60 tabs-->30 days * Oxycodone-Tylenol 10-325 (02/18/17) 120 tabs--?30 days 8) History of Prostate Cancer * Sees urology as outpatient 9) Prophylactic measure * protonix 40mg IVP daily * heparin 5000 units [id number] * PT/OT eval * Florastor 250mg PO BID Disposition: discussed with ICU, patient is stable for the floors given improving renal function. will continue to monitor CPK
[2017-03-21] MEDS ORDERED: oxyCODONE 10 mg Immediate Release Tab PO ONE (16:48)
[2017-03-21 17:13] LABS: HEPATITIS A IGM NEGATIVE (NEGATIVE); HEPATITIS B CORE AB Negative (NEGATIVE)
[2017-03-21] MEDS: Saccharomyces Boulardi 250 mg Cap PO SCH (17:19)
[2017-03-21 18:38] LABS: HEPATITIS C ANTIBODY Reactive (NEGATIVE)
[2017-03-21 18:41] LABS: HEPATITIS B SURFACE AG NEGATIVE (NEGATIVE)
--- NOTE | 2017-03-21 23:06 | CARD ---
APPROVED REPORT EXAM: Two-dimensional and M-mode echocardiogram with Doppler and color Doppler. Other Information Quality : TDSRhythm : INDICATION Heroine Abuse/ Prostate CA RISK FACTORS Hypertension Hyperlipidemia 2D DIMENSIONS IVSd0.9 (0.7-1.1cm)LVDd4.1 (3.9-5.9cm) PWd1.0 (0.7-1.1cm)LVDs2.7 (2.5-4.0cm) FS (%) 34.9 %LVEF (%)64.6 (>50%) M-Mode DIMENSIONS Left Atrium (MM)3.69 (2.5-4.0cm)Aortic Root4.00 (2.2-3.7cm) Aortic Cusp Exc.1.62 (1.5-2.0cm) Mitral Valve MV E Fqbyfael27.2cm/sMV A Gewabgtf76.4cm/sE/A ratio1.2 TDI E/Lateral E'0.0E/Medial E'0.0 Tricuspid Valve TR Peak Mgehvgro896ff/sTR Peak Gr.[id number] LEFT VENTRICLE The left ventricle is normal size. There is normal left ventricular wall thickness. Left ventricle systolic function is normal. The Ejection Fraction is 65-70%. There is normal LV segmental wall motion. The left ventricular diastolic function is normal. There is no ventricular septal defect visualized. RIGHT VENTRICLE The right ventricle is normal size. The right ventricular systolic function is normal. ATRIA The left atrium is mildly dilated. The right atrium size is normal. AORTIC VALVE The aortic valve is mildly to moderately sclerotic. The aortic valve is tri-cuspid. No aortic regurgitation is present. There is no aortic valvular stenosis. MITRAL VALVE The mitral valve is normal in structure. There is no evidence of mitral valve prolapse. There is no mitral valve regurgitation noted. TRICUSPID VALVE The tricuspid valve is normal in structure. There is trace tricuspid regurgitation. Right ventricular systolic pressure is estimated at 30-40 mmHg. There is no pulmonary hypertension. PULMONIC VALVE The pulmonic valve is not well visualized. There is no pulmonic valvular regurgitation. GREAT VESSELS The aortic root is mildly enlarged.4.0 The IVC is normal in size and collapses >50% with inspiration. PERICARDIAL EFFUSION There is no pericardial effusion. <Conclusion> Left ventricle systolic function is normal. The Ejection Fraction is 65-70%. The left ventricular diastolic function is normal. There is no pulmonary hypertension. The aortic root is mildly enlarged.4.0
--- NOTE | 2017-03-22 00:07 | CARD ---
APPROVED REPORT EKG Measurement Heart [id number] <Conclusion> Normal sinus rhythm Incomplete right bundle branch block Left anterior fascicular block Abnormal ECG
[2017-03-22] MEDS: Lactated Ringer's 1,000 ML IV SCH ×3 (04:00→20:14)
[2017-03-22 06:40] LABS: BASO % 0.4 % (0.0-2.0); EOS # 0.1 K/uL (0.0-0.7); EOS % 0.8 % (0.0-4.0); HEMOGLOBIN 11.2 g/dL (12.0-18.0); LYMPH # 2.2 K/uL (1.0-4.3); LYMPH % 31.4 % (20.0-40.0); MEAN CORPUSCULAR HEMOGLOBIN 29.9 pg (27.0-31.0); MEAN PLATELET VOLUME 8.6 fL (7.2-11.7); MONO # 0.4 K/uL (0.0-0.8); MONO % 5.7 % (0.0-10.0); NEUT # 4.3 K/uL (1.8-7.0); NEUT % 61.7 % (50.0-75.0); NRBC % 0.1 % (0.0-2.0); RBC 3.75 Mil/uL (4.40-5.90); RED CELL DISTRIBUTION WIDTH 13.1 % (11.5-14.5); WHITE BLOOD COUNT 6.9 K/uL (4.8-10.8)
[2017-03-22 07:34] LABS: ALB/GLOB RATIO 1.1 (1.0-2.1); ALT/SGPT 102 U/L (21-72); AST/SGOT 109 U/L (17-59); BLOOD UREA NITROGEN 32 mg/dL (9-20); GFR AFRICAN-AMERICAN > 60; GFR NON-AFRICAN AMERICAN > 60; MAGNESIUM 1.3 mg/dL (1.6-2.3)
[2017-03-22] MEDS: Saccharomyces Boulardi 250 mg Cap PO SCH ×2 (09:11→17:42)
[2017-03-22 12:50] LABS: C DIFF TOXIN A B NEGATIVE (NEGATIVE)
[2017-03-22 13:04] LABS: FECAL LEUKOCYTES NEGATIVE (NEGATIVE)
[2017-03-22] MEDS: Magnesium Sulfate 1 gm in D5W 1 GM/100 ML BAG IVPB SCH ×2 (13:33→13:34)
--- NOTE | 2017-03-22 14:08 | CP.PCM.PN ---
Subjective - Date & Time of Evaluation Date of Evaluation: 03/22/17 Time of Evaluation: 14:06 - Subjective Subjective: in a chair feels much better family at bedside labs reviewed patient requesting xanax Objective - Vital Signs/Intake and Output Vital Signs (last 24 hours): Temp Pulse Resp BP Pulse Ox 98.7 F 102 H 19 136/85 95 03/22/17 12:00 03/22/17 11:05 03/22/17 07:45 03/22/17 07:45 03/22/17 12:00 Intake and Output: 03/22/17 03/22/17 06:59 18:59 Intake Total 100 635 Output Total 750 400 Balance -650 235 - Medications Medications: Current Medications Heparin Sodium (Porcine) (Heparin) 5,000 units SC Q12 [facility] Last Admin: 03/22/17 09:11 Dose: 5,000 units Doxycycline Hyclate 100 mg/ (Sodium Chloride) 100 mls @ 100 mls/hr IVPB Q12H [facility] Last Admin: 03/22/17 11:00 Dose: 100 mls/hr Ceftriaxone Sodium 1 gm/ (Sodium Chloride) 100 mls @ 100 mls/hr IVPB DAILY [facility] Last Admin: 03/22/17 09:11 Dose: 100 mls/hr Lactated Ringer's (Lactated Ringer's) 1,000 mls @ 125 mls/hr IV .Q8H [facility] Last Admin: 03/22/17 13:33 Dose: 125 mls/hr Pantoprazole Sodium (Protonix Inj) 40 mg IVP DAILY [facility] Last Admin: 03/22/17 09:11 Dose: 40 mg Saccharomyces Boulardii (Florastor) 250 mg PO BID [facility] Last Admin: 03/22/17 09:11 Dose: 250 mg - Labs Labs: 03/22/17 06:27 03/22/17 06:30 - Constitutional Appears: Chronically Ill - Respiratory Exam Respiratory Exam: Clear to Ausculation Bilateral - Cardiovascular Exam Cardiovascular Exam: REGULAR RHYTHM - Extremities Exam Extremities Exam: absent: Pedal Edema Assessment and Plan - Assessment and Plan (Free Text) Assessment: kd due to volume loss, ashley/diuretic/rhabdo improved avoid nsaids continue supportive care replace Magnesium/K
--- NOTE | 2017-03-22 15:16 | PCM.PSYCH ---
Initial Psychiatric Evaluation - Initial Psychiatric Evaluation Type of Admission: Voluntary Legal Status: Capacity Chief Complaint (in patient's own words): "I think I am going through withdrawals" History of Present Illness and Precipitating Events: Psych consult: history of narcotic use/withdrawal The pt is seen, chart reviewed, case discussed with staff Patient is a 71 year old male currently experiencing mild opioid withdrawal symptoms. He is , no children, and lives with his . Patient states he has been taking Oxycodone for some time due to chronic back pain, prescribed by his pain management doctor. On March 12 the patient ran out of his medication and wished to no longer take the pain medication. Following this, his states he began having withdrawal symptoms of diarrhea, muscle cramping, vomiting, chills, aches and runny nose. Now he states he feels much better and only has a slight runny nose and some mild aches and pains. At this time it seems that he has completed detox on his own from the Oxycodone. At this time he is tearful, anxious, and depressed about his current health situation. His states he no longer enjoys things like fishing or golf because his back pain limits his mobility and depresses him further. he is also worried b/c his back is "a mess" and he cannot take opioids anymore. Patient states he has a long history of using heroin. He states it started "around 1966 until I quit at the [place] [facility] in 2001." He has been clean since 2001. He states during the same time of his heroin use disorder he occasionally use pills and cocaine. He denies current alcohol usage. He has been to detox and rehab in the past. PMH: Chronic back pain, HTN, HLD, Prostate CA in remission Past Psych: Anxiety Family Psych Hx: Patient was adopted and has no knowledge of his biological family Current Medications: Active Medications Generic Name Dose Route Start Last Admin Trade Name Freq PRN Reason Stop Dose Admin Heparin Sodium (Porcine) 5,000 units 03/20/17 22:00 03/22/17 09:11 Heparin SC 5,000 units Q12 [facility] Administration Doxycycline Hyclate 100 mg/ 100 mls @ 100 mls/hr 03/20/17 23:00 03/22/17 11: 00 Sodium Chloride IVPB 100 mls/hr Q12H [facility] Administration Ceftriaxone Sodium 1 gm/ 100 mls @ 100 mls/hr 03/21/17 10:00 03/22/17 09:11 Sodium Chloride IVPB 100 mls/hr DAILY [facility] Administration Lactated Ringer's 1,000 mls @ 125 mls/hr 03/21/17 11:00 03/22/17 13:33 Lactated Ringer's IV 125 mls/hr .Q8H [facility] Administration Lorazepam 0.5 mg 03/22/17 18:00 Ativan PO TID [facility] Mirtazapine 7.5 mg 03/22/17 22:00 Remeron PO HS [facility] Pantoprazole Sodium 40 mg 03/21/17 10:00 03/22/17 09:11 Protonix Inj IVP 40 mg DAILY [facility] Administration Saccharomyces Boulardii 250 mg 03/21/17 18:00 03/22/17 09:11 Florastor PO 250 mg BID [facility] Administration Past Psychiatric History - Past Psychiatric History Pertinent Medical Hx (Current Medical&Sleep Prob, Allergies): Allergies Allergy/AdvReac Type Severity Reaction Status Date / Time No Known Allergies Allergy Verified 03/20/17 18:25 Aspir 81 1 tab PO DAILY 08/23/13 Atenolol 50 mg PO DAILY 08/23/13 Lisinopril/Hctz 25 mg-20 mg 1 tab PO DAILY 08/23/13 Omeprazole 20 mg PO DAILY 08/23/13 Rapaflo 8 mg PO DAILY 08/23/13 Simvastatin 40 mg PO DAILY 08/23/13 Review of Systems - Review of Systems All systems: reviewed and no additional remarkable complaints except - Constitutional Constitutional: absent: Chills, Sweats - Neurological Neurological: UNREMARKABLE - Psychiatric Psychiatric: Anxiety, Depression. absent: Hallucinations, Homicidal Ideation, Paranoia, Suicidal Ideation Mental Status Examination - Personal Presentation Personal Presentation: Looks stated age - Affect Affect: Broad - Motor Activity Motor Activity: Calm - Reliability in Providing Information Reliability in Providing Information: Good - Speech Speech: Organized - Mood Mood: Depressed, Anxious - Formal Thought Process Formal Thought Process: No Impairment - Cognitive Functions Orientation: Person, Place, Situation, Time Sensorium: Alert Attention/Concentration: Attentive Abstract Thinking: [place] Estimate of Intelligence: Average Judgement: Intact, as evidence by: Insight regarding need for hospitalization Memory: Recent intact, as evidence by: Ability to recall events of the day, Remote intact, as evidenced by: Abilit to recall sig. 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 diet, exercise, meditation 33 min
[2017-03-22 16:08] VITALS: RESP 20
--- NOTE | 2017-03-22 20:27 | CP.PCM.PN ---
Subjective - Date & Time of Evaluation Date of Evaluation: 03/22/17 Time of Evaluation: 10:27 - Subjective Subjective: Patient seen and examined at bedside .Per nursing no acute events occurred overnight. The patient reports a productive cough (clear phlegm), and some lower back pain. The patient is tolerating diet well and is able to pass his bowels and urinate with no problems. The patient denies any chest pain, shortness of breath, fevers, chills, nausea, vomiting, abdominal pain, or any other complaints. Objective - Vital Signs/Intake and Output Vital Signs (last 24 hours): Temp Pulse Resp BP Pulse Ox 98.4 F 76 20 145/81 95 03/22/17 16:06 03/22/17 16:06 03/22/17 16:06 03/22/17 16:06 03/22/17 16:06 Intake and Output: 03/22/17 03/23/17 18:59 06:59 Intake Total 635 Output Total 400 Balance 235 - Medications Medications: Current Medications Heparin Sodium (Porcine) (Heparin) 5,000 units SC Q12 [facility] Last Admin: 03/22/17 09:11 Dose: 5,000 units Doxycycline Hyclate 100 mg/ (Sodium Chloride) 100 mls @ 100 mls/hr IVPB Q12H [facility] Last Admin: 03/22/17 11:00 Dose: 100 mls/hr Ceftriaxone Sodium 1 gm/ (Sodium Chloride) 100 mls @ 100 mls/hr IVPB DAILY [facility] Last Admin: 03/22/17 09:11 Dose: 100 mls/hr Lactated Ringer's (Lactated Ringer's) 1,000 mls @ 125 mls/hr IV .Q8H [facility] Last Admin: 03/22/17 20:14 Dose: Not Given Lorazepam (Ativan) 0.5 mg PO TID [facility] Last Admin: 03/22/17 17:42 Dose: 0.5 mg Mirtazapine (Remeron) 7.5 mg PO HS [facility] Pantoprazole Sodium (Protonix Inj) 40 mg IVP DAILY [facility] Last Admin: 03/22/17 09:11 Dose: 40 mg Saccharomyces Boulardii (Florastor) 250 mg PO BID [facility] Last Admin: 03/22/17 17:42 Dose: 250 mg - Labs Labs: 03/22/17 06:27 03/22/17 06:30 - Head Exam Head Exam: ATRAUMATIC, NORMAL INSPECTION, NORMOCEPHALIC - Eye Exam Eye Exam: EOMI, Normal appearance, PERRL. absent: Periorbital tenderness Pupil Exam: NORMAL ACCOMODATION, PERRL. absent: Irregular, Unequal - ENT Exam ENT Exam: Mucous Membranes Moist, Normal Exam, Normal Oropharynx - Respiratory Exam Respiratory Exam: Clear to Ausculation Bilateral, NORMAL BREATHING PATTERN. absent: Chest Wall Tenderness, Prolonged Expiratory Phase, Respiratory Distress - Cardiovascular Exam Cardiovascular Exam: REGULAR RHYTHM, RRR, +S1, +S2. absent: Gallop, Rubs - GI/Abdominal Exam GI & Abdominal Exam: Soft, Normal Bowel Sounds. absent: Rigid, Hyperactive Bowel Sounds - Extremities Exam Extremities Exam: Full ROM, Normal Inspection. absent: Joint Swelling, Pedal Edema, Tenderness - Back Exam Back Exam: NORMAL INSPECTION. absent: CVA tenderness (L), CVA tenderness (R), paraspinal tenderness - Neurological Exam Neurological Exam: Alert, Awake, CN II-XII Intact, Normal Gait, Oriented x3 - Psychiatric Exam Psychiatric exam: Normal Affect, Normal Mood - Skin Skin Exam: Dry, Intact, Normal Color, Warm Assessment and Plan - Assessment and Plan (Free Text) Plan: 1) Acute Renal Failure * Patient initially presented with BUN/Cr: 32/1.1 * Continue to improve * Will continue to monitor with serial CMP's * Nephrology (Dr. Ramon) on the case-->help appreciated * CT Chest: scattered ground/glass air space opacities. Thryoid nodule. * CT abdomen/pelvis (03/20/17); mild colitis versus underdistension. Gastric wall thickening. Air within bladder lumen/possible wall thickening. liver lesion. * Monitor urine output * LR 125cc/hr 2) Rhabdomyolosis * Total CPK: 1327. Trending Down. * Continue to monitor CPK Daily 3) Transaminitis * Downtrending * Previously on Oxycodone-Tylenol 10-325 (02/18/17) 120 tabs-->30 days * Hepatitis panel. Hep C reactive. 4) Colitis * Suspected secondary to opiate withdrawal * Order for stool culture, ova and parasite, fecal leukocytes, and C. Dif toxin pending * CT abdomen/pelvis (03/20/17); mild colitis versus underdistension. Gastric wall thcikiening. Air within bladder lumen/possible wall thickening. liver lesion. * Rocephin 1 gram IVq daily (active since 03/21/17) * Doxycyline 100mg IVPB Q12H (active since 03/21/17) * Recent endoscopy/colonoscopy by Dr. Coelho's group * EGD: esophageal mucosal chages as ambrose's stage. Biopsied. Non-severe reflux esophagitis. Gastric varcies. gastritis.-->Negative H. pylori, negative dysplasia, positive Ambrose's * Colonoscopy: 4mm polyp and 9mm polyp removed and internal hemorrhoids--> tubular adenoma 5) Hypertension * Patient was previously taking Atenolol/Lisinopril/HCTZ for blood pressure control at home * Will continue to hold and reasses blood pressure in the A.M. 6) History Lipid Disorder * Continue to hold Simvastatin * patient is in rhabdomyolysis, unclear if statin is contributing 6) History of Gastritis * Continue Protonix 40mg IV q daily 7) Chronic Back Pain * History of lumbar stenosis, arthritis-->was recommended for neurosurgery in the past but declined; attempted to eval for noninvasive procedure however, expensive for the patient * [facility] * Lyria 100mg Po daily (03/03/17)--90 tabs; 30 days * Oxycodone 15mg ()-->60 tabs--15 days * Xanax 1mg (02/23/17) 90 tabs-->30 days * Morphine sulfate ER 30mg Po (02/18/17) 60 tabs-->30 days * Oxycodone-Tylenol 10-325 (02/18/17) 120 tabs--?30 days 8) History of Prostate Cancer * Sees urology as outpatient 9) Prophylactic measure * protonix 40mg IVP daily * heparin 5000 units [id number] * PT/OT eval * Florastor 250mg PO BID Disposition: Patient moved to floors given improving renal function. will continue to monitor CPK.
[2017-03-23] MEDS: Lactated Ringer's 1,000 ML IV SCH ×2 (03:09→11:08)
--- NOTE | 2017-03-23 10:31 | CP.PCM.PN ---
Subjective - Date & Time of Evaluation Date of Evaluation: 03/23/17 Time of Evaluation: 10:28 - Subjective Subjective: Still c/o diarrhea- c.diff negative ANETTE has resolved- creat 1.1 CPK decreased as well mainly c/o abdominal pains , diarrhea UO has been good Objective - Vital Signs/Intake and Output Vital Signs (last 24 hours): Temp Pulse Resp BP Pulse Ox 97.9 F 106 H 20 146/82 95 03/23/17 07:35 03/23/17 07:35 03/23/17 07:35 03/23/17 07:35 03/23/17 07:35 Intake and Output: 03/23/17 03/23/17 06:59 18:59 Intake Total 1000 Balance 1000 - Medications Medications: Current Medications Heparin Sodium (Porcine) (Heparin) 5,000 units SC Q12 [facility] Last Admin: 03/22/17 22:34 Dose: 5,000 units Doxycycline Hyclate 100 mg/ (Sodium Chloride) 100 mls @ 100 mls/hr IVPB Q12H [facility] Last Admin: 03/22/17 22:34 Dose: 100 mls/hr Ceftriaxone Sodium 1 gm/ (Sodium Chloride) 100 mls @ 100 mls/hr IVPB DAILY [facility] Last Admin: 03/22/17 09:11 Dose: 100 mls/hr Lactated Ringer's (Lactated Ringer's) 1,000 mls @ 125 mls/hr IV .Q8H [facility] Last Admin: 03/23/17 03:09 Dose: 125 mls/hr Lorazepam (Ativan) 0.5 mg PO TID [facility] Last Admin: 03/22/17 17:42 Dose: 0.5 mg Mirtazapine (Remeron) 7.5 mg PO HS [facility] Last Admin: 03/22/17 22:34 Dose: 7.5 mg Pantoprazole Sodium (Protonix Inj) 40 mg IVP DAILY [facility] Last Admin: 03/22/17 09:11 Dose: 40 mg Saccharomyces Boulardii (Florastor) 250 mg PO BID [facility] Last Admin: 03/22/17 17:42 Dose: 250 mg - Labs Labs: 03/22/17 06:27 03/22/17 06:30 - Constitutional Appears: No Acute Distress, Chronically Ill - Head Exam Head Exam: ATRAUMATIC, NORMAL INSPECTION - Eye Exam Eye Exam: EOMI, Normal appearance - Neck Exam Neck Exam: Normal Inspection. absent: Tenderness - Cardiovascular Exam Cardiovascular Exam: REGULAR RHYTHM, +S1 - GI/Abdominal Exam GI & Abdominal Exam: Soft, Tenderness - Extremities Exam Extremities Exam: Normal Inspection. absent: Tenderness - Neurological Exam Neurological Exam: Alert, CN II-XII Intact - Skin Skin Exam: Dry, Warm Assessment and Plan (1) Acute renal failure Status: Acute (2) Dehydration, severe Status: Acute (3) Rhabdomyolysis Status: Acute - Assessment and Plan (Free Text) Plan: Follow up chemistries given fair diuresis /etiology diarrhea unclear ANETTE has resolved
[2017-03-23] MEDS: Saccharomyces Boulardi 250 mg Cap PO SCH ×2 (11:05→17:48)
[2017-03-23 12:13] LABS: BASO % 0.3 % (0.0-2.0); EOS # 0.1 K/uL (0.0-0.7); EOS % 1.2 % (0.0-4.0); HEMOGLOBIN 11.9 g/dL (12.0-18.0); LYMPH # 2.2 K/uL (1.0-4.3); LYMPH % 27.6 % (20.0-40.0); MEAN CELL VOLUME 88.5 fL (80.0-94.0); MEAN PLATELET VOLUME 8.3 fL (7.2-11.7); MONO # 0.6 K/uL (0.0-0.8); MONO % 6.9 % (0.0-10.0); NEUT # 5.2 K/uL (1.8-7.0); RBC 3.85 Mil/uL (4.40-5.90); RED CELL DISTRIBUTION WIDTH 13.1 % (11.5-14.5); WHITE BLOOD COUNT 8.1 K/uL (4.8-10.8)
[2017-03-23 12:18] LABS: BLOOD UREA NITROGEN 14 mg/dL (9-20); GFR AFRICAN-AMERICAN > 60; GFR NON-AFRICAN AMERICAN > 60
[2017-03-23 12:19] LABS: ALB/GLOB RATIO 1.1 (1.0-2.1); ALBUMIN 3.2 g/dL (3.5-5.0); ALT/SGPT 88 U/L (21-72); AST/SGOT 69 U/L (17-59); CALCIUM 8.8 mg/dl (8.6-10.4); MAGNESIUM 1.4 mg/dL (1.6-2.3)
--- NOTE | 2017-03-23 13:52 | PCM.PYCHPN ---
Psychiatric Progress Note - Psychiatric Progress Note Patient seen today, length of contact: 16 min Patient Chief Complaint: "I don't feel well" Problems Identified/Issues Discussed: The patient is seen, chart reviewed and case discussed. Patient complains of diarrhea with [address] Sumner is contacted and she thinks this is because of change in diet, not withdrawal. And indeed the patient has no other withdrawal symptoms other than anxiety and irritability. He too agrees that this is not opiate withdrawal. Current meds help but he still is anxious. Support given psychoeducation given. Medication Change: No Medical Record Reviewed: Yes Mental Status Examination - Cognitive Function Orientation: Person, Place, Situation, Time Memory: Intact Attention: WNL Concentration: Poor Association: WNL Fund of Knowledge: WNL - Mood Mood: Depressed, Anxious - Affect Affect: Broad - Speech Speech: Appropriate - Formal Thought Process Formal Thought Process: No Impairment - Suicidal Ideation Suicidal Ideation: No - Homicidal Ideation Homicidal Ideation: No Goal/Treatment Plan - Goal/Treatment Plan Need for Continued Stay: Other (medical) Progress Toward Problem(s) and Goals/Treatment Plan: Patient started on Ativan 0.5mg tid as he was on xanax, similar dose, previously and is still anxious Started remeron 7.5mg for sleep and depression - to be increased to 15 mg in 4 days Psychoeducation and support Encourage compliance with meds and after care Teach healthy lifestyle methods, i.e. diet, exercise, meditation
[2017-03-23] MEDS ORDERED: Potassium Chloride 20 mEq ER Tab PO ONE (15:15)
[2017-03-23] MEDS: Magnesium Sulfate 1 gm in D5W 1 GM/100 ML BAG IVPB SCH ×2 (16:00→17:49)
--- NOTE | 2017-03-23 16:58 | CP.PCM.PN ---
Subjective - Date & Time of Evaluation Date of Evaluation: 03/23/17 Time of Evaluation: 08:23 - Subjective Subjective: Dr. Sumner's Hospitalist Service, Asif Atkinson Sugar Controller-PGY1 Patient was seen and examined at bedside. Per nursing no acute events occurred overnight. The patient reports diarrhea since eating some chicken yesterday. The patient denies any chest pain, shortness of breath, nausea, vomiting, lightheadedness, dizziness, fevers, chills, changes in vision, headaches, or any other complaints. Objective - Vital Signs/Intake and Output Vital Signs (last 24 hours): Temp Pulse Resp BP Pulse Ox 97.3 F L 73 20 143/82 95 03/23/17 15:00 03/23/17 15:00 03/23/17 15:00 03/23/17 15:00 03/23/17 15:00 Intake and Output: 03/23/17 03/23/17 06:59 18:59 Intake Total 1000 Balance 1000 - Medications Medications: Current Medications Heparin Sodium (Porcine) (Heparin) 5,000 units SC Q12 [facility] Last Admin: 03/23/17 11:06 Dose: 5,000 units Doxycycline Hyclate 100 mg/ (Sodium Chloride) 100 mls @ 100 mls/hr IVPB Q12H [facility] Last Admin: 03/23/17 12:20 Dose: 100 mls/hr Ceftriaxone Sodium 1 gm/ (Sodium Chloride) 100 mls @ 100 mls/hr IVPB DAILY [facility] Last Admin: 03/23/17 11:05 Dose: 100 mls/hr Lorazepam (Ativan) 0.5 mg PO TID [facility] Last Admin: 03/23/17 14:23 Dose: 0.5 mg Mirtazapine (Remeron) 7.5 mg PO HS [facility] Last Admin: 03/22/17 22:34 Dose: 7.5 mg Pantoprazole Sodium (Protonix Inj) 40 mg IVP DAILY [facility] Last Admin: 03/23/17 11:05 Dose: 40 mg Saccharomyces Boulardii (Florastor) 250 mg PO BID [facility] Last Admin: 03/23/17 11:05 Dose: 250 mg - Labs Labs: 03/23/17 11:53 03/23/17 11:53 - Head Exam Head Exam: ATRAUMATIC, NORMAL INSPECTION, NORMOCEPHALIC - Eye Exam Eye Exam: EOMI, Normal appearance, PERRL. absent: Periorbital tenderness Pupil Exam: NORMAL ACCOMODATION, PERRL. absent: Irregular, Unequal - ENT Exam ENT Exam: Mucous Membranes Moist, Normal Oropharynx - Neck Exam Neck Exam: Normal Inspection. absent: Lymphadenopathy, Thyromegaly - Respiratory Exam Respiratory Exam: Clear to Ausculation Bilateral, NORMAL BREATHING PATTERN. absent: Chest Wall Tenderness, Prolonged Expiratory Phase, Respiratory Distress - Cardiovascular Exam Cardiovascular Exam: REGULAR RHYTHM, RRR, +S1, +S2. absent: Gallop, Rubs - GI/Abdominal Exam GI & Abdominal Exam: Tenderness, Normal Bowel Sounds. absent: Rigid, Hyperactive Bowel Sounds - Extremities Exam Extremities Exam: absent: Joint Swelling, Pedal Edema, Tenderness - Neurological Exam Neurological Exam: Alert, Awake, CN II-XII Intact, Oriented x3 - Psychiatric Exam Psychiatric exam: Normal Affect, Normal Mood - Skin Skin Exam: Dry, Intact, Normal Color, Warm. absent: Erythema, Rash Assessment and Plan - Assessment and Plan (Free Text) Plan: 1) Acute Renal Failure * Patient initially presented with BUN/Cr: 14/0.8 * Continuing to improve * Will continue to monitor with serial CMP's * Nephrology (Dr. Ramon) on the case-->help appreciated * CT Chest: scattered ground/glass air space opacities. Thryoid nodule. * CT abdomen/pelvis (03/20/17); mild colitis versus underdistension. Gastric wall thickening. Air within bladder lumen/possible wall thickening. liver lesion. * Monitor urine output * Continue LR 125cc/hr 2) Rhabdomyolosis * Total CPK: 546. Trending Down. * Continue to monitor CPK Daily 3) Transaminitis * Downtrending * Previously on Oxycodone-Tylenol 10-325 (02/18/17) 120 tabs-->30 days * Hepatitis panel. Hep C reactive. 4) Colitis * Suspected secondary to opiate withdrawal * Order for stool culture, ova and parasite, fecal leukocytes, and C. Dif toxin pending * CT abdomen/pelvis (03/20/17); mild colitis versus underdistension. Gastric wall thcikiening. Air within bladder lumen/possible wall thickening. liver lesion. * Rocephin 1 gram IVq daily (active since 03/21/17) * Doxycyline 100mg IVPB Q12H (active since 03/21/17) * Recent endoscopy/colonoscopy by Dr. Coelho's group * EGD: esophageal mucosal chages as ambrose's stage. Biopsied. Non-severe reflux esophagitis. Gastric varcies. gastritis.-->Negative H. pylori, negative dysplasia, positive Ambrose's * Colonoscopy: 4mm polyp and 9mm polyp removed and internal hemorrhoids--> tubular adenoma -Experienced new onset diarrhea late last night. Diet changed to soft. C. diff ordered. Will f/u with results. 5) Hypertension * Patient was previously taking Atenolol/Lisinopril/HCTZ for blood pressure control at home * Will continue to hold and reasses blood pressure in the A.M. 6) History Lipid Disorder * Continue to hold Simvastatin * patient is in rhabdomyolysis, unclear if statin is contributing 6) History of Gastritis * Continue Protonix 40mg IV q daily 7) Chronic Back Pain * History of lumbar stenosis, arthritis-->was recommended for neurosurgery in the past but declined; attempted to eval for noninvasive procedure however, expensive for the patient * Per [facility], 03/11/17 * Lyria 100mg Po daily (03/03/17)--90 tabs; 30 days * Oxycodone 15mg ()-->60 tabs--15 days * Xanax 1mg (02/23/17) 90 tabs-->30 days * Morphine sulfate ER 30mg Po (02/18/17) 60 tabs-->30 days * Oxycodone-Tylenol 10-325 (02/18/17) 120 tabs--?30 days 8) History of Prostate Cancer * Sees urology as outpatient 9) Prophylactic measure * protonix 40mg IVP daily * heparin 5000 units [id number] * PT/OT eval * Florastor 250mg PO BID Disposition: Patient seen by Physical Therapy and seen recommended DEE/TCU. Expected to be discharged tomorrow morning to Rehab.
[2017-03-24 08:28] LABS: ALB/GLOB RATIO 1.2 (1.0-2.1); ALBUMIN 2.9 g/dL (3.5-5.0); ALT/SGPT 68 U/L (21-72); AST/SGOT 44 U/L (17-59); BLOOD UREA NITROGEN 10 mg/dL (9-20); CALCIUM 8.6 mg/dl (8.6-10.4); GFR AFRICAN-AMERICAN > 60; GFR NON-AFRICAN AMERICAN > 60; MAGNESIUM 1.4 mg/dL (1.6-2.3)
[2017-03-24] MEDS ORDERED: Magnesium Sulfate 1 gm in D5W 1 GM/100 ML BAG IVPB ONE (10:00)
[2017-03-24] MEDS ORDERED: Potassium Chloride 20 mEq ER Tab PO SCH (10:00)
[2017-03-24] MEDS: Saccharomyces Boulardi 250 mg Cap PO SCH (10:32)
[2017-03-24] MEDS ORDERED: Potassium Chloride 20 mEq ER Tab PO ONE (10:44)
--- NOTE | 2017-03-24 10:52 | PCM.PYCHPN ---
Psychiatric Progress Note - Psychiatric Progress Note Patient seen today, length of contact: 16 min Patient Chief Complaint: "I am better this morning" Problems Identified/Issues Discussed: The patient is seen, chart reviewed and case discussed. He is going to a rehab and doing better - but appetite is low and sleep is still disturbed due to prostate and some diarrhea Anxiety is under control with ativan Support given No acute psych sxs Psych will sign off Medication Change: No Medical Record Reviewed: Yes Mental Status Examination - Cognitive Function Orientation: Person, Place, Situation, Time Memory: Intact Attention: WNL Concentration: WNL Association: WNL Fund of Knowledge: WNL - Mood Mood: Anxious - Affect Affect: Broad - Speech Speech: Appropriate - Formal Thought Process Formal Thought Process: No Impairment - Suicidal Ideation Suicidal Ideation: No - Homicidal Ideation Homicidal Ideation: No Goal/Treatment Plan - Goal/Treatment Plan Need for Continued Stay: Other (medical) Progress Toward Problem(s) and Goals/Treatment Plan: Patient is on Ativan 0.5mg tid Remeron 15 mg now Psychoeducation and support Encourage compliance with meds and after care Teach healthy lifestyle methods, i.e. diet, exercise, meditation Psych will sign off
--- NOTE | 2017-03-24 14:13 | CP.PCM.PN ---
Subjective - Date & Time of Evaluation Date of Evaluation: 03/24/17 Time of Evaluation: 14:10 - Subjective Subjective: Doing better; ANETTE has resolved BP better Likely for rehab transfer Discussed with PMD- can resume prior BP meds Objective - Vital Signs/Intake and Output Vital Signs (last 24 hours): Temp Pulse Resp BP Pulse Ox 98.2 F 118 H 20 144/83 95 03/24/17 07:30 03/24/17 07:30 03/24/17 07:30 03/24/17 07:30 03/24/17 07:30 Intake and Output: 03/24/17 03/24/17 06:59 18:59 Intake Total 1999 Balance 1999 - Medications Medications: Current Medications Doxycycline Hyclate 100 mg/ (Sodium Chloride) 100 mls @ 100 mls/hr IVPB Q12H [facility] Last Admin: 03/24/17 11:30 Dose: 100 mls/hr Ceftriaxone Sodium 1 gm/ (Sodium Chloride) 100 mls @ 100 mls/hr IVPB DAILY [facility] Last Admin: 03/24/17 10:32 Dose: 100 mls/hr Lorazepam (Ativan) 0.5 mg PO TID [facility] Last Admin: 03/24/17 10:35 Dose: 0.5 mg Mirtazapine (Remeron) 15 mg PO HS [facility] Pantoprazole Sodium (Protonix Ec Tab) 40 mg PO DAILY [facility] Saccharomyces Boulardii (Florastor) 250 mg PO BID [facility] Last Admin: 03/24/17 10:32 Dose: 250 mg - Labs Labs: 03/23/17 11:53 03/24/17 07:25 - Constitutional Appears: No Acute Distress, Chronically Ill - Head Exam Head Exam: ATRAUMATIC, NORMAL INSPECTION - Eye Exam Eye Exam: EOMI, Normal appearance - Neck Exam Neck Exam: Normal Inspection. absent: Tenderness - Respiratory Exam Respiratory Exam: Clear to Ausculation Bilateral, NORMAL BREATHING PATTERN - Cardiovascular Exam Cardiovascular Exam: REGULAR RHYTHM, +S1 - GI/Abdominal Exam GI & Abdominal Exam: Soft. absent: Tenderness - Extremities Exam Extremities Exam: Normal Inspection. absent: Tenderness - Neurological Exam Neurological Exam: Alert, CN II-XII Intact - Skin Skin Exam: Dry, Warm Assessment and Plan (1) Acute renal failure Status: Resolved (2) Dehydration, severe Status: Resolved (3) Rhabdomyolysis Status: Resolved - Assessment and Plan (Free Text) Plan: Agree with disposition plans If BP problematic can follow up as outpt
[2017-03-24 16:24] VITALS: BP 128/89; PULSE 105; TEMP 98.4; O2SAT 97
--- NOTE | 2017-03-24 18:29 | CP.PCM.DIS ---
Provider - Provider Date of Admission: 03/20/17 21:10 Attending physician: Toshia Sumner DO Primary care physician: PMD:Unknown Consults: Nephrology (Dr. Ramon), Psychiatry (Dr. Kincaid) Time Spent in preparation of Discharge (in minutes): 45 Hospital Course - Lab Results Lab Results: Micro Results 03/21/17 16:07 Stool Stool Culture - Final NO SALMONELLA, SHIGELLA OR CAMPYLOBACTER ISOLATED. 03/21/17 16:07 Stool Ova and Parasite Concentrate Exam - Final 03/20/17 22:48 Blood-Venous Blood Culture - Preliminary NO GROWTH AFTER 3 DAYS 03/20/17 22:48 Blood-Venous Blood Culture - Preliminary NO GROWTH AFTER 3 DAYS 03/20/17 22:26 Nose MRSA Culture (Admit) - Final MRSA NOT DETECTED Most Recent Lab Values WBC 8.1 K/uL (4.8-10.8) 03/23/17 11:53 RBC 3.85 Mil/uL (4.40-5.90) L 03/23/17 11:53 Hgb 11.9 g/dL (12.0-18.0) L 03/23/17 11:53 Hct 34.1 % (35.0-51.0) L 03/23/17 11:53 MCV 88.5 fL (80.0-94.0) 03/23/17 11:53 MCH 31.0 pg (27.0-31.0) 03/23/17 11:53 MCHC 35.0 g/dL (33.0-37.0) 03/23/17 11:53 RDW 13.1 % (11.5-14.5) 03/23/17 11:53 Plt Count 219 K/uL (130-400) 03/23/17 11:53 MPV 8.3 fL (7.2-11.7) 03/23/17 11:53 Neut % (Auto) 64.0 % (50.0-75.0) 03/23/17 11:53 Lymph % (Auto) 27.6 % (20.0-40.0) 03/23/17 11:53 [place] % (Auto) 6.9 % (0.0-10.0) 03/23/17 11:53 Eos % (Auto) 1.2 % (0.0-4.0) 03/23/17 11:53 Baso % (Auto) 0.3 % (0.0-2.0) 03/23/17 11:53 Neut # 5.2 K/uL (1.8-7.0) 03/23/17 11:53 Lymph # 2.2 K/uL (1.0-4.3) 03/23/17 11:53 [place] # 0.6 K/uL (0.0-0.8) 03/23/17 11:53 Eos # 0.1 K/uL (0.0-0.7) 03/23/17 11:53 Baso # 0.0 K/uL (0.0-0.2) 03/23/17 11:53 Sodium 137 mmol/L (132-148) 03/24/17 07:25 Potassium 3.5 mmol/L (3.6-5.2) L 03/24/17 07:25 Chloride 107 mmol/L (98-107) 03/24/17 07:25 Carbon Dioxide 26 mmol/L (22-30) 03/24/17 07:25 Anion Gap 8 (10-20) L 03/24/17 07:25 BUN 10 mg/dL (9-20) 03/24/17 07:25 Creatinine 0.8 mg/dL (0.8-1.5) 03/24/17 07:25 Est GFR ( Amer) > 60 03/24/17 07:25 Est GFR (Non-Af Amer) > 60 03/24/17 07:25 POC Glucose (mg/dL) 128 mg/dL (65-110) H 03/20/17 20:43 Random Glucose 96 mg/dL (75-110) 03/24/17 07:25 Calcium 8.6 mg/dl (8.6-10.4) 03/24/17 07:25 Phosphorus 2.7 mg/dL (2.5-4.5) 03/24/17 07:25 Magnesium 1.4 mg/dL (1.6-2.3) L 03/24/17 07:25 Total Bilirubin 0.7 mg/dL (0.2-1.3) 03/24/17 07:25 AST 44 U/L (17-59) 03/24/17 07:25 ALT 68 U/L (21-72) 03/24/17 07:25 Alkaline Phosphatase 41 U/L (38-126) 03/24/17 07:25 Total Creatine Kinase 224 U/L (55-170) H 03/24/17 07:25 CK-MB (Mass) 52.3 ng/mL (0.0-3.38) H 03/20/17 18:56 Troponin I < 0.0120 ng/mL (0.00-0.120) 03/20/17 23:39 Total Protein 5.4 g/dL (6.3-8.3) L 03/24/17 07:25 Albumin 2.9 g/dL (3.5-5.0) L 03/24/17 07:25 Globulin 2.5 gm/dL (2.2-3.9) 03/24/17 07:25 Albumin/Globulin Ratio 1.2 (1.0-2.1) 03/24/17 07:25 Prostate Specific Ag 0.698 ng/mL (0.00-4.0) 03/22/17 06:30 Procalcitonin 2.21 NG/ML (0.19-0.49) H 03/20/17 23:39 Urine Color Yellow (YELLOW) 03/21/17 06:52 Urine Clarity Clear (Clear) 03/21/17 06:52 Urine pH 5.0 (5.0-8.0) 03/21/17 06:52 Ur Specific [place] 1.010 (1.003-1.030) 03/21/17 06:52 Urine Protein 1+ mg/dL (NEGATIVE) H 03/21/17 06:52 Urine Glucose (UA) Normal mg/dL (Normal) 03/21/17 06:52 Urine Ketones Trace mg/dL (NEGATIVE) 03/21/17 06:52 Urine Blood 3+ (NEGATIVE) H 03/21/17 06:52 Urine Nitrate Negative (NEGATIVE) 03/21/17 06:52 Urine Bilirubin Negative (NEGATIVE) 03/21/17 06:52 Urine Urobilinogen Normal mg/dL (0.2-1.0) 03/21/17 06:52 Ur Leukocyte Esterase Trace Yosef/uL (Negative) 03/21/17 06:52 Urine WBC (Auto) 14 /hpf (0-5) H 03/21/17 06:52 Urine RBC (Auto) 52 /hpf (0-3) H 03/21/17 06:52 Ur Squamous Epith Cells < 1 /hpf (0-5) 03/20/17 18:56 Ur Transition Epith Cell < 1 /hpf (0-3) 03/20/17 18:56 Urine Bacteria Rare (<OCC) 03/21/17 06:52 Hyaline Casts >20 /lpf (0-2) H 03/20/17 18:56 Ur Random Creatinine 54.9 mg/dL 03/21/17 06:52 Ur Random Sodium 86 mmol/L 03/21/17 06:52 Ur Random Potassium 11.4 mmol/L 03/21/17 06:52 Urine Chloride 87 mmol/L (32-290) 03/21/17 06:52 Stool Leukocytes, Qual Negative (NEGATIVE) 03/21/17 16:07 Urine Opiates Screen Positive (NEGATIVE) H 03/20/17 18:56 Urine Methadone Screen Negative (NEGATIVE) 03/20/17 18:56 Ur Barbiturates Screen Negative (NEGATIVE) 03/20/17 18:56 Ur Phencyclidine Scrn Negative (NEGATIVE) 03/20/17 18:56 Ur Amphetamines Screen Negative (NEGATIVE) 03/20/17 18:56 U Benzodiazepines Scrn Positive (NEGATIVE) 03/20/17 18:56 U Oth Cocaine Metabols Negative (NEGATIVE) 03/20/17 18:56 U Cannabinoids Screen Negative (NEGATIVE) 03/20/17 18:56 Alcohol, Quantitative < 10 mg/dl (0-10) 03/20/17 18:56 C. difficile Ag & Toxin Negative (NEGATIVE) 03/23/17 13:43 Hepatitis A IgM Ab Negative (NEGATIVE) 03/21/17 16:22 Hep Bs Antigen Negative (NEGATIVE) 03/21/17 16:22 Hep B Core IgM Ab Negative (NEGATIVE) 03/21/17 16:22 Hepatitis C Antibody Reactive (NEGATIVE) 03/21/17 16:22 Influenza Typ A,B (EIA) Negative for flu a/b (NEGATIVE) 03/20/17 23:56 - Hospital Course Hospital Course: PMD: None Consults: Nephrology (Dr. Ramon), Psychiatry (Dr. iKncaid) PRINCIPAL DISCHARGE DIAGNOSES: Acute Renal Failure Rhabdomyolosis Transaminitis Colitis HTN HLD Gastritis Chronic back pain Prostate cancer CC: AMS HISTORY OF PRESENT ILLNESS:71 yo Male with 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 was called for history as patient's speech is slurred and incoherent. Patient has been seen by Pain Management for his chronic back pain for the past 6 months. He has been placed on oxycodone QID- he ran out of his medication last week. As per , the past week- patient has been experiencing nausea, vomiting, abdominal pain, diarrhea, weakness, and decrease in appetite. He has not been able to tolerate anything PO - except for water. He started to have tremors that started on Monday- at this point the patient was so fatigued - he was unable to ambulate on his own. As per - who was with him the whole time, patient did not fall or experience any trauma. Patient unable to provide ROS. 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 ( seen by pain management - was placed on Oxy), and Prostate Cancer (received radiation therapy) PSHx: Hernia repair x2, ganglion cyst x 2, left wrist surgery Meds: As per MAY, reviewed with and confirmed + oxycodone All: NKDA SHx: Used to drink 2-3 beers per day for 2-3 years when he was diagnosed with prostate cancer ( he quit once he went into remission), denied tobacco use, used to use heroin (last use 2001, after detox) FHx: He was adopted SUMMARY OF COURSE: Alex Wilde is a 71-year-old male who was admitted to [facility] on 03/20/2017-03/24/2017 for altered mental status and acute renal failure secondary to rhabdomyolysis. His medical history is notable for HTN, HLD, GERD, constipation, severe spinal degenerative disease with disc herniations, and prostate cancer (received radiation therapy). While at the hospital, he was given fluids, and had diagnostic lab tests and imaging done. Patient had his diet slowly advanced. Nephrology and psychiatry were consulted. Imaging study results are stated below. Nephrology consult Dr. Ramon said to maintain IV fluids, monitor electrolytes, CP and to avoid nephrotoxic medications. Psychiatry consult Dr. Kincaid started Mr. Wilde on medications for anxiety, sleep and depression. He had psychoeducation and was taught healthy lifestyle modifications. He is to follow up with urology outpatient to follow prostate cancer. He is going to [facility] today at 4:30 pm following hospital discharge for further therapy services provided at the facility. He is to follow up with pain management for management of his pain medications going forward. Informed patient of the risk of tendon rupture from the antibiotic Ciprofloxacin. Patient understood the risks. Imaging: ECG 03/20: Normal sinus rhythm. Incomplete right bundle branch block. Left anterior fascicular block. Abnormal ECG. Chest X-Ray 03/20: Interval pulmonary venous congestion pulmonary edema inferred. Cardiomegaly. Volume overload in associations with renal failure probable. Right upper lobe coalescent pulmonary edema versus infiltrate. Scoliosis and shoulder athrosis. CT chest/abdomen/pelvis 03/20: mild colitis versus underdistension. Gastric wall thickening. Air within bladder lumen/ possible wall thickening. Liver lesion. Echocardiogram 03/20: Left ventricle systolic function is normal. Ejection fraction is 65-70%. The left ventricular diastolic function is normal. There is no pulmonary hypertension. The aortic root is mildly enlarged 4.0. DISCHARGE MEDICATIONS: Aspir 1 tab PO daily Atenolol 50 mg PO daily Lisinopril/Hctz 25mg-20mg 1 tab PO daily Omeprazole 20 mg PO daily Rapaflo 8 mg PO daily Simvastatin 40 mg PO daily Ciprofloxaxcin 500MG PO BID, #10 Flagyl 500mg PO TID, #15 Discharge Exam - Head Exam Head Exam: ATRAUMATIC, NORMAL INSPECTION - Eye Exam Eye Exam: EOMI, Normal appearance, PERRL. absent: Periorbital tenderness Pupil Exam: NORMAL ACCOMODATION, PERRL. absent: Irregular, Unequal - ENT Exam ENT Exam: Mucous Membranes Moist, Normal Oropharynx - Respiratory Exam Respiratory Exam: Clear to PA & Lateral, NORMAL BREATHING PATTERN, UNREMARKABLE. absent: Decreased Breath Sounds, Rales, Rhonchi - Cardiovascular Exam Cardiovascular Exam: REGULAR RHYTHM, RRR, +S1, +S2. absent: Gallop, Rubs - GI/Abdominal Exam GI & Abdominal Exam: Normal Bowel Sounds, Unremarkable. absent: Distended, Hypoactive Bowel Sounds, Organomegaly - Extremities Exam Extremities exam: full ROM, normal inspection - Back Exam Back exam: NORMAL INSPECTION. absent: CVA tenderness (L), CVA tenderness (R), paraspinal tenderness - Neurological Exam Neurological exam: Alert, CN II-XII Intact, Normal Gait, Oriented x3 - Psychiatric Exam Psychiatric exam: Normal Affect, Normal Mood - Skin Skin Exam: Dry, Intact, Normal Color, Warm Discharge Plan - Discharge Medications Prescriptions: Ciprofloxacin [Cipro] 500 mg PO BID #10 tab metroNIDAZOLE [Flagyl] 500 mg PO TID #15 tab Morphine Sulfate [Morphine Sulfate ER] 30 mg PO Q12 #10 cap.er.pel oxyCODONE [oxyCODONE Immediate Release Tab] 5 mg PO Q6 PRN #20 tab PRN Reason: Pain, Severe (8-10) - Follow Up Plan Condition: SERIOUS Disposition: REHAB FACILITY/REHAB UNIT Instructions: Acute Kidney Injury (DC), Acute Kidney Injury (GEN), Renal Failure Diet (DC), Rhabdomyolysis (DC), Rhabdomyolysis (GEN), Narcotic Pain Management (DC), Narcotic Pain Management (GEN) Additional Instructions: Patient is medically stable for for discharge when subacute rehab bed is available. Referrals: Mirna Kincaid MD [Staff Provider] - Bernadette Ramon MD [Staff Provider] -
[2017-03-25] MEDS ORDERED: Pantoprazole 40 mg EC Tab PO SCH (10:00)
== END 2017-03-24 17:43 | DRG 557 ==
LOC: C.ER 17:48 → C.9I 21:10 → C.5S 03-22 14:39
PROVIDERS: ADMIT Hospitalist; ATTEND Hospitalist
PROC: HZ56ZZZ Individual Psychotherapy for Substance Abuse Treatment, Psychoeducation (ICD-10-PCS; principal; 2017-03-23)
PROC: HZ59ZZZ Individual Psychotherapy for Substance Abuse Treatment, Supportive (ICD-10-PCS; 2017-03-23)
DX: M62.82 Rhabdomyolysis (principal); N17.0 Acute kidney failure with tubular necrosis; K56.7 Ileus, unspecified; K52.1 Toxic gastroenteritis and colitis; F11.23 Opioid dependence with withdrawal; E86.0 Dehydration; I10 Essential (primary) hypertension; M47.9 Spondylosis, unspecified; M51.26 Other intervertebral disc displacement, lumbar region; Z85.46 Personal history of malignant neoplasm of prostate; F17.210 Nicotine dependence, cigarettes, uncomplicated; E78.00 Pure hypercholesterolemia, unspecified; R41.82 Altered mental status, unspecified; F41.1 Generalized anxiety disorder; F32.89 Other specified depressive episodes; F14.21 Cocaine dependence, in remission; K21.0 Gastro-esophageal reflux disease with esophagitis

== ENCOUNTER 2017-04-14 15:29 | Inpatient (IN) | payer MEDICARE, BC ==
[2017-04-14 16:29] VITALS: BMI 22.8
[2017-04-14 18:36] LABS: BASO % 0.1 % (0.0-2.0); EOS # 0.1 K/uL (0.0-0.7); EOS % 0.4 % (0.0-4.0); HEMOGLOBIN 13.3 g/dL (12.0-18.0); LYMPH # 4.2 K/uL (1.0-4.3); LYMPH % 24.7 % (20.0-40.0); MEAN CELL VOLUME 91.2 fL (80.0-94.0); MEAN CORPUSCULAR HEMOGLOBIN 30.4 pg (27.0-31.0); MEAN CORPUSCULAR HGB CONC 33.4 g/dL (33.0-37.0); MEAN PLATELET VOLUME 7.9 fL (7.2-11.7); MONO # 0.4 K/uL (0.0-0.8); MONO % 2.1 % (0.0-10.0); NEUT # 12.5 K/uL (1.8-7.0); NEUT % 72.7 % (50.0-75.0); RBC 4.38 Mil/uL (4.40-5.90); RED CELL DISTRIBUTION WIDTH 15.1 % (11.5-14.5); WHITE BLOOD COUNT 17.1 K/uL (4.8-10.8)
[2017-04-14 18:48] LABS: URINE BILIRUBIN NEGATIVE (NEGATIVE); URINE BLOOD NEGATIVE (NEGATIVE); URINE CLARITY Hazy (Clear); URINE COLOR Yellow (YELLOW); URINE GLUCOSE (UA) NORMAL (Normal); URINE LEUKOCYTE ESTERASE NEG Leu/uL (Negative); URINE NITRATE NEGATIVE (NEGATIVE); URINE PROTEIN NEGATIVE (NEGATIVE); URINE UROBILINOGEN NORMAL mg/dL (0.2-1.0)
--- NOTE | 2017-04-14 18:51 | C.PDOC ---
History Of Present Illness Pt is here requesting detox from opiate pain pills. Time Seen by Provider: 04/14/17 17:02 Chief Complaint (Nursing): Substance Abuse History Per: Patient, Family Onset/Duration Of Symptoms: Days Current Symptoms Are (Timing): Still Present Suicide/Self Injury Attempted (Context): None Modifying Factor(s): Narcotics Severity: Moderate Associated Symptoms: denies: Suicidal Thoughts, Suicidal Plan Additional History Per: Prior Records Past Medical History Reviewed: Historical Data, Nursing Documentation, Vital Signs Vital Signs: Last Vital Signs Temp 99.7 F H 04/14/17 16:29 Pulse 89 04/14/17 16:29 Resp 20 04/14/17 16:29 BP 94/64 L 04/14/17 16:29 Pulse Ox 97 04/14/17 18:51 - Medical History PMH: Anxiety, Back Problems, HTN, Hypercholesterolemia, Malignancy (Prostate) - [facility] Procedures DX ULTRASOUND NEC (01/21/13) INDIV PSYCHOTHERAPY FOR SUBSTANCE ABUSE TREATMENT, SUPPORT (03/20/17) INDIV PSYCHOTHERAPY FOR SUBSTANCE ABUSE, PSYCHOEDUCATION (03/20/17) PERCUTAN NEEDLE BIOPSY OF PROSTATE (01/21/13) Family History: States: Unknown Family Hx - Social History Hx Tobacco Use: Yes Hx Alcohol Use: No Hx Substance Use: Yes - Immunization History Hx Tetanus Toxoid Vaccination: No Hx Influenza Vaccination: No Hx Pneumococcal Vaccination: No Review Of Systems Constitutional: Negative for: Fever Cardiovascular: Negative for: Chest Pain Respiratory: Negative for: Shortness of Breath Gastrointestinal: Negative for: Vomiting Musculoskeletal: Negative for: Neck Pain Skin: Negative for: Rash Neurological: Negative for: Weakness, Seizures Physical Exam - Physical Exam Appears: Non-toxic, No Acute Distress Skin: Normal Color, Warm, Dry Head: Atraumatic, Normacephalic Eye(s): bilateral: Normal Inspection, PERRL, EOMI Neck: Normal ROM, Supple Cardiovascular: Rhythm Regular Respiratory: Normal Breath Sounds, No Accessory Muscle Use Gastrointestinal/Abdominal: Soft, No Tenderness Extremity: Normal ROM Neurological/Psych: Oriented x3, Normal Motor, Normal Sensation ED Course And Treatment - Laboratory Results Result Diagrams: 04/14/17 18:29 O2 Sat by Pulse Oximetry: 97 Pulse Ox Interpretation: Normal Disposition - Disposition Disposition Time: 19:00 Condition: STABLE Forms: [facility] ([place]) - Clinical Impression Clinical Impression: Opioid abuse Physician Patient Turnover Patient Signed Over To: Amie Aldana Handoff Comments: to f/up labs and CXR for medical clearance for detox program.
[2017-04-14 18:54] LABS: BARBITURATES, UR NEGATIVE (NEGATIVE); OPIATES, UR NEGATIVE (NEGATIVE); PHENCYCLIDINE, UR NEGATIVE (NEGATIVE)
[2017-04-14 19:01] LABS: ALB/GLOB RATIO 1.4 (1.0-2.1); ALBUMIN 4.4 g/dL (3.5-5.0); ALT/SGPT 24 U/L (21-72); AST/SGOT 20 U/L (17-59); BLOOD UREA NITROGEN 25 mg/dL (9-20); CALCIUM 8.9 mg/dl (8.6-10.4); GFR AFRICAN-AMERICAN > 60; GFR NON-AFRICAN AMERICAN 60
[2017-04-14 19:02] LABS: BENZODIAZEPINES, UR POSITIVE (NEGATIVE)
--- NOTE | 2017-04-14 20:32 | RAD ---
HISTORY: Leukocytosis COMPARISON: Chest x-ray performed 03/20/17 TECHNIQUE: Chest PA and lateral FINDINGS: LUNGS: Left hilar prominence. Patchy opacity at the left lower lobe and left hilar/infrahilar regions suspected secondary to pneumonia. Biapical pleural thickening. Please note that chest x-ray has limited sensitivity for the detection of pulmonary masses. PLEURA: No significant pleural effusion identified. No definite pneumothorax . CARDIOVASCULAR: Heart size appears within normal limits. Dense atherosclerotic calcifications of the aortic knob. OSSEOUS STRUCTURES: Osseous demineralization. Multilevel degenerative changes. Kyphosis. Scoliosis convex to the right. VISUALIZED UPPER ABDOMEN: Unremarkable. OTHER FINDINGS: None. IMPRESSION: Biapical pleural thickening. Left hilar prominence. Patchy opacity at the left lower lobe and left hilar/infrahilar regions suspected secondary to pneumonia. Recommend follow-up upon completion of treatment of acute symptoms in order to assess for complete resolution.
--- NOTE | 2017-04-14 21:04 | PCM.BM ---
<Delmy Raman - Last Filed: 04/14/17 21:03> Treatment Plan Problems - Problems identified on initial assessmt potiential for opiate withdrawal Date Initiated: 04/14/17 Time Initiated: 21:04 Assessment reference: NA Status: Active Treatment assets and liabiliti Patient Assests: ADL independent, cognitively intact Patient Liabilities: substance abuse, medical problems - Milieu Protocol Maintain good personal hygiene: daily Encourage regular showers, daily Remind patient to perform daily oral care, daily Assist patient to perform ADL's Maintain personal safety: every shift Educate patient to report safety concerns to staff, every shift Monitor environment for contraband/sharps Medication safety: Monitor for expected outcome, potential side effects: every shift, Assess barriers to learning: every shift, Assess readiness for medication education: every shift <Mirna Kincaid - Last Filed: 04/15/17 16:58> - Diagnosis (1) Opioid use disorder, severe, dependence Status: Acute Interventions: 04/15/17 16:57 * Assess 7x/week regarding severity of withdrawal * Educate regarding risks, benefits, side effects and alternatives of medications * Use Motivational Interviewing for abstinence * Use CBT for relapse prevention * Medication management for withdrawal symptoms * Encourage medication assisted treatment * (2) Sedative, hypnotic or anxiolytic use disorder, severe, dependence Status: Acute Interventions: 04/15/17 16:58 * Assess 7x/week regarding severity of withdrawal * Educate regarding risks, benefits, side effects and alternatives of medications * Use Motivational Interviewing for abstinence * Use CBT for relapse prevention * Medication management for withdrawal symptoms * Encourage medication assisted treatment *
[2017-04-15] MEDS: Pantoprazole 20 mg EC Tab PO SCH (10:07)
--- NOTE | 2017-04-15 12:53 | PCM.PSYCH ---
Initial Psychiatric Evaluation - Initial Psychiatric Evaluation Type of Admission: Voluntary Legal Status: Capacity History of Present Illness and Precipitating Events: The pt is seen, chart reviewed, case discussed with staff Patient is a 71 year old male currently experiencing opioid withdrawal symptoms. He is , no children, and lives with his . Patient states he has been taking Oxycodone for some time due to chronic back pain, prescribed by his pain management doctor. Patient states he has a long history of using heroin. He states it started "around 1966 until I quit at the [place] rehab center in 2001." He has been clean since 2001. He states during the same time of his heroin use disorder he occasionally used pills and cocaine. He denies current alcohol usage. Smokes 1/2 ppd cigarettes. He has been to detox and rehab in the past. He admits to going down from 120 pills to 3 pills as an outpatient but each time he tries to cut he gets "violently sick." One example was in March when automatic typewriter inspector saw him he had extreme vomiting episodes due to withdrawal, got dehydrated and rhabdomyolisis and kidney failure as a consequence. He claims he was fine on d/c but relapsed again. He also sometimes over-uses his xanax and klonopin (not clear why he gets 2 benzos), ie 2-3 each, mostly for sleep and anxiety. PMH: Chronic back pain, HTN, HLD, Prostate CA in remission Past Psych: Anxiety, depression, PTSD Family Psych Hx: Patient was adopted and has no knowledge of his biological family Current Medications: Active Medications Generic Name Dose Route Start Last Admin Trade Name Freq PRN Reason Stop Dose Admin Aspirin 81 mg 04/15/17 10:00 04/15/17 10:07 Aspirin Chewable PO 81 mg DAILY VINCE Administration Atenolol 50 mg 04/15/17 10:00 04/15/17 11:59 Tenormin PO 50 mg DAILY VINCE Administration Azithromycin 500 mg 04/15/17 20:00 Zithromax PO 04/16/17 20:01 DAILY@1999 VINCE Chlordiazepoxide 25 mg 04/15/17 12:00 04/15/17 11:32 Librium PO 04/19/17 11:59 25 mg Q8H VINCE Administration Taper Chlordiazepoxide 25 mg 04/15/17 08:50 Librium PO Q4H PRN Alcohol Withdrawal Hydrochlorothiazide 25 mg 04/15/17 10:00 04/15/17 12:00 Hydrodiuril PO 25 mg DAILY VINCE Administration Hydroxyzine HCl 25 mg 04/15/17 08:46 Atarax PO Q6H PRN Anxiety Ibuprofen 600 mg 04/15/17 01:19 Motrin Tab PO Q6 PRN Pain Lisinopril 20 mg 04/15/17 10:00 04/15/17 12:00 Zestril PO 20 mg DAILY VINCE Administration Methadone HCl 10 mg 04/15/17 10:00 04/15/17 10:07 Methadone PO 04/18/17 09:59 10 mg Q24H VINCE Administration Taper Pantoprazole Sodium 20 mg 04/15/17 10:00 04/15/17 10:07 Protonix Ec Tab PO 20 mg DAILY VINCE Administration Trazodone HCl 50 mg 04/14/17 21:34 04/14/17 21:50 Desyrel PO 50 mg HS PRN Administration insomnia Past Psychiatric History - Past Psychiatric History Previous Treatment History: Intensive Outpatient Pertinent Medical Hx (Current Medical&Sleep Prob, Allergies): Allergies Allergy/AdvReac Type Severity Reaction Status Date / Time No Known Allergies Allergy Verified 04/14/17 16:28 ALPRAZolam [Xanax] 1 mg PO DAILY PRN 04/14/17 Aspirin 81 mg PO DAILY 04/14/17 Atenolol [Tenormin] 50 mg PO DAILY 04/14/17 Clonazepam [Klonopin] 2 mg PO HS 04/14/17 Ibuprofen [Motrin Tab] 800 mg PO TID 04/14/17 Lisinopril/Hydrochlorothiazide [Lisinopril-Hydrochlorothiazide 25 mg-20 mg] 1 tab PO DAILY 04/14/17 Omeprazole 20 mg PO DAILY 04/14/17 Pregabalin [Lyrica] 100 mg PO TID 04/14/17 Silodosin [Rapaflo] 8 mg PO DAILY 04/14/17 Simvastatin 40 mg PO DAILY 04/14/17 Review of Systems - Neurological Neurological: Weakness - Psychiatric Psychiatric: Abnormal Sleep Pattern, Anxiety, Irritability, Mood Swings. absent : Homicidal Ideation, Suicidal Ideation Mental Status Examination - Personal Presentation Personal Presentation: Looks stated age - Affect Affect: Constricted - Motor Activity Motor Activity: Calm - Reliability in Providing Information Reliability in Providing Information: Good - Speech Speech: Organized - Mood Mood: Anxious - Formal Thought Process Formal Thought Process: No Impairment - Cognitive Functions Orientation: Person, Place, Situation, Time Sensorium: Alert Attention/Concentration: Attentive Estimate of Intelligence: Average Judgement: Intact, as evidence by: Insight regarding need for hospitalization Memory: Recent intact, as evidence by: Ability to recall events of the day, Remote intact, as evidenced by: Abilit to recall sig. life events - Risk Risk: Seizure, Withdrawal, Diminished functioning - Strength & Assets Inventory Strength & Assets Inventory: Family support, Cooperative - Limitations Limitations: Other DSM 5 DX - DSM 5 DSM 5 Diagnosis: Opioid withdrawal Opioid use d/o -sever Sedative, hypnotic or anxiolytic use d/o - severe Tobacco use d/o - moderate Depressive d/o - unspecified hx of PTSD - Recommended/Plan of Treatment Treatment Recommendations and Plan of Treatment: Methadone taper Librium taper Gabapentin for augmentation As needed medications All risks, benefits and alternatives of the meds discussed, and the pt agreed and understood. Attend groups and activities Supportive therapy and psychoeducation [place] for abstinence CBT for relapse prevention Encourage MAT - Open to suboxone maintenance Refer to rehab or IOP, and self-help groups Smoking cessation with [place] Nicotine patch if needed 34 min Projected ELOS: 4-5 days Prognosis: good w treatment - Smoking Cessation Smoking Cessation Initiated: Yes
--- NOTE | 2017-04-15 13:25 | PCM.PYCHPN ---
Psychiatric Progress Note - Psychiatric Progress Note Patient seen today, length of contact: 16 min Patient Chief Complaint: "A little better" Problems Identified/Issues Discussed: The pt is seen, chart reviewed, case discussed with staff. The pt is compliant with medications and reports no side-effects. Symptoms are improving slowly but needs more time to stabilize. He had a VERY BAD withdrawal last time with kidney shut down and rhabdomyolisis. He is scared to go fast, plus he is coming off benzos, too. After care discussed, support and psychoeducation given. He decided to continue with suboxone if he can after d/c Medication Change: Yes (detox changes daily) Medical Record Reviewed: Yes Mental Status Examination - Cognitive Function Orientation: Person, Place, Situation, Time Memory: Intact Attention: WNL Concentration: Poor Association: WNL Fund of Knowledge: WNL - Mood Mood: Anxious - Affect Affect: Constricted - Speech Speech: Appropriate - Formal Thought Process Formal Thought Process: No Impairment - Suicidal Ideation Suicidal Ideation: No - Homicidal Ideation Homicidal Ideation: No Goal/Treatment Plan - Goal/Treatment Plan Need for Continued Stay: Discharge may exacerbated symptoms, Severe functional impairment Progress Toward Problem(s) and Goals/Treatment Plan: Methadone taper Librium taper Gabapentin for augmentation As needed medications All risks, benefits and alternatives of the meds discussed, and the pt agreed and understood. Attend groups and activities Supportive therapy and psychoeducation [place] for abstinence CBT for relapse prevention Encourage MAT - Open to suboxone maintenance Refer to rehab or IOP, and self-help groups Smoking cessation with [place] Nicotine patch if needed
[2017-04-16] MEDS: Pantoprazole 20 mg EC Tab PO SCH (09:38)
[2017-04-17] MEDS: Pantoprazole 20 mg EC Tab PO SCH (09:29)
--- NOTE | 2017-04-17 14:30 | PCM.PYCHPN ---
Psychiatric Progress Note - Psychiatric Progress Note Patient seen today, length of contact: 16 min Patient Chief Complaint: "Im having a little bit of tremors" Problems Identified/Issues Discussed: The pt is seen, chart reviewed, case discussed with staff. The pt is compliant with medications and reports no side-effects. Symptoms improving and patient needs more time to stabilize. After care discussed, support and psychoeducation given. The patient reports that he is having a little bit of tremorts. He reports that he wants to go on suboxone maintenance. He reports that his is picking him up tomorrow and he is a little afraid, because he still has oxycodone had home. He will follow up outpatient. Medication Change: Yes (detox changes daily) Medical Record Reviewed: Yes Mental Status Examination - Cognitive Function Orientation: Person, Place, Situation, Time Memory: Intact Attention: WNL Concentration: WNL Association: WNL Fund of Knowledge: WNL - Mood Mood: Neutral - Affect Affect: Broad - Speech Speech: Appropriate - Language Language: Word Retrieval - Formal Thought Process Formal Thought Process: No Impairment - Suicidal Ideation Suicidal Ideation: No - Homicidal Ideation Homicidal Ideation: No Goal/Treatment Plan - Goal/Treatment Plan Need for Continued Stay: Discharge may exacerbated symptoms Progress Toward Problem(s) and Goals/Treatment Plan: Methadone taper Librium taper Gabapentin for augmentation As needed medications All risks, benefits and alternatives of the meds discussed, and the pt agreed and understood. Attend groups and activities Supportive therapy and psychoeducation [place] for abstinence CBT for relapse prevention Encourage MAT - Open to suboxone maintenance Refer to rehab or IOP, and self-help groups Smoking cessation with [place] Nicotine patch if needed Estimated Date of D/C: 04/18/17 - Smoking Cessation Smoking Cessation Initiated: Yes
[2017-04-17 19:36] VITALS: O2SAT 98
--- NOTE | 2017-04-18 08:46 | PCM.PYCHDC ---
Mental Status Examination - Mental Status Examination Orientation: Person Discharge Summary - Discharge Note Consultations:: List each consultation separately and include: 1. Reason for request. 2. Findings. 3. Follow-up Summary of Hospital Course include:: 1. Description of specific treatment plan utilized for patients during their course of treatmen. 2. Summarize the time- course for resolution of acute symptoms and/or regressed behaviors. 3. Describe issues identified and worked on during hospitalization. 4. Describe medication utilized. 5. Describe medical problems identified and treated. 6. Reassessment of suicide risk Summary of Hospital Course: The pt is seen, chart reviewed, case discussed with staff Patient is a 71 year old male currently experiencing opioid withdrawal symptoms. He is , no children, and lives with his . Patient states he has been taking Oxycodone for some time due to chronic back pain, prescribed by his pain management doctor. Patient states he has a long history of using heroin. He states it started "around 1966 until I quit at the [place] rehab center in 2001." He has been clean since 2001. He states during the same time of his heroin use disorder he occasionally used pills and cocaine. He denies current alcohol usage. Smokes 1/2 ppd cigarettes. He has been to detox and rehab in the past. He admits to going down from 120 pills to 3 pills as an outpatient but each time he tries to cut he gets "violently sick." One example was in March when handbook writer saw him he had extreme vomiting episodes due to withdrawal, got dehydrated and rhabdomyolisis and kidney failure as a consequence. He claims he was fine on d/c but relapsed again. He also sometimes over-uses his xanax and klonopin (not clear why he gets 2 benzos), ie 2-3 each, mostly for sleep and anxiety. PMH: Chronic back pain, HTN, HLD, Prostate CA in remission Past Psych: Anxiety, depression, PTSD Family Psych Hx: Patient was adopted and has no knowledge of his biological family - Diagnosis (1) Opioid use disorder, severe, dependence Current Visit: Yes Status: Acute (2) Sedative, hypnotic or anxiolytic use disorder, severe, dependence Current Visit: Yes Status: Acute - Final Diagnosis (DSM 5) Condition upon Discharge: FAIR Disposition: HOME/ ROUTINE Follow-up Treatment Plan: Methadone taper Librium taper Gabapentin for augmentation As needed medications All risks, benefits and alternatives of the meds discussed, and the pt agreed and understood. Attend groups and activities Supportive therapy and psychoeducation [place] for abstinence CBT for relapse prevention Encourage MAT - Open to suboxone maintenance Refer to rehab or IOP, and self-help groups Smoking cessation with [place] Nicotine patch if needed
[2017-04-18 09:01] VITALS: BP 107/72; PULSE 82; RESP 20; TEMP 97.9
[2017-04-18] MEDS: Pantoprazole 20 mg EC Tab PO SCH (09:22)
== END 2017-04-18 10:50 | disposition home or self-care (01) | DRG 895 ==
LOC: C.ER 15:29 → C.9E 19:22 → C.7D 19:22
PROVIDERS: ADMIT Psychiatry & Neurology Psychiatry; ATTEND Psychiatry & Neurology Psychiatry
PROC: HZ2ZZZZ Detoxification Services for Substance Abuse Treatment (ICD-10-PCS; principal; 2017-04-14)
PROC: HZ52ZZZ Individual Psychotherapy for Substance Abuse Treatment, Cognitive-Behavioral (ICD-10-PCS; 2017-04-14)
PROC: HZ59ZZZ Individual Psychotherapy for Substance Abuse Treatment, Supportive (ICD-10-PCS; 2017-04-14)
PROC: HZ56ZZZ Individual Psychotherapy for Substance Abuse Treatment, Psychoeducation (ICD-10-PCS; 2017-04-14)
DX: F11.23 Opioid dependence with withdrawal (principal); F13.20 Sedative, hypnotic or anxiolytic dependence, uncomplicated; E78.00 Pure hypercholesterolemia, unspecified; F17.210 Nicotine dependence, cigarettes, uncomplicated; F32.9 Major depressive disorder, single episode, unspecified; F43.10 Post-traumatic stress disorder, unspecified; G89.29 Other chronic pain; I10 Essential (primary) hypertension; Z85.46 Personal history of malignant neoplasm of prostate; F41.9 Anxiety disorder, unspecified; M54.9 Dorsalgia, unspecified

== ENCOUNTER 2017-09-10 16:26 | Emergency (ER) | payer MEDICARE, BC ==
[2017-09-10 16:31] VITALS: BMI 24.8
[2017-09-10 16:33] VITALS: TEMP 98.4
--- NOTE | 2017-09-10 17:11 | C.PDOC ---
History Of Present Illness 72 year old male with a PMHx of diabetes, hypertension, hyperlipedimia, and opiod abuse presents to the ED for an evaluation. Patient states he took his blood pressure at home and it was 70 systolic, patient became concerned which prompted the visit to the ER. He notes he was at baseline earlier. Patient states he visited his PMD on Monday, and he was at baseline. Patient denies any other medical complaints. Time Seen by Provider: 09/10/17 16:56 Chief Complaint (Nursing): Medical Clearance History Per: Patient History/Exam Limitations: no limitations Onset/Duration Of Symptoms: Hrs Current Symptoms Are (Timing): Still Present Past Medical History Reviewed: Historical Data, Nursing Documentation, Vital Signs Vital Signs: Last Vital Signs Temp 98.4 F 09/10/17 16:30 Pulse 94 H 09/10/17 16:30 Resp 18 09/10/17 16:30 BP 92/58 L 09/10/17 16:30 Pulse Ox 96 09/10/17 16:30 - Medical History PMH: Anxiety, Back Problems, HTN, Hypercholesterolemia, Malignancy (Prostate) Denies: Chronic Kidney Disease Other Surgeries: Hx of surgeries - [facility] Procedures DETOXIFICATION SERVICES FOR SUBSTANCE ABUSE TREATMENT (04/14/17) DX ULTRASOUND NEC (01/21/13) INDIV PSYCHOTHERAPY FOR SUBSTANCE ABUSE TREATMENT, SUPPORT (04/14/17) INDIV PSYCHOTHERAPY FOR SUBSTANCE ABUSE, COGNITIV BEHAVIORAL (04/14/17) INDIV PSYCHOTHERAPY FOR SUBSTANCE ABUSE, PSYCHOEDUCATION (04/14/17) PERCUTAN NEEDLE BIOPSY OF PROSTATE (01/21/13) Family History: States: No Known Family Hx - Social History Hx Tobacco Use: Yes Hx Alcohol Use: No Hx Substance Use: No - Immunization History Hx Tetanus Toxoid Vaccination: Yes Hx Influenza Vaccination: Yes Hx Pneumococcal Vaccination: Yes Review Of Systems Except As Marked, All Systems Reviewed And Found Negative. Physical Exam - Physical Exam Appears: Non-toxic, No Acute Distress Skin: Normal Color, Warm, Dry Head: Atraumatic, Normacephalic Eye(s): bilateral: Normal Inspection Oral Mucosa: Moist Neck: Normal ROM Chest: Symmetrical Cardiovascular: No Rhythm Regular Respiratory: Normal Breath Sounds, No Rales, No Rhonchi, No Wheezing Neurological/Psych: Oriented x3, Normal Speech Gait: Steady ED Course And Treatment O2 Sat by Pulse Oximetry: 96 (RA) Pulse Ox Interpretation: Normal Medical Decision Making Medical Decision Making: Patient assessed and examined. As per triage, patient's blood pressure was 92 systolic, and at bedside blood pressure is 97 systolic. Patient is stable, and is no acute distress. Patient declined to have further medical evaluation and treatment and wished to be discharged from the Emergency Department. Patient advised to follow up with his primary medical doctor or clinic in 2-5 days for further evaluation and return to the emergency department at any time if symptoms persist or worsen. Disposition - Disposition Forms: [facility] (Kiswahili) - Scribe Statement The provider has reviewed the documentation as recorded by the Scribe Sybil Steele All medical record entries made by the Loriibolive were at my direction and personally dictated by me. I have reviewed the chart and agree that the record accurately reflects my personal performance of the history, physical exam, medical decision making, and the department course for this patient. I have also personally directed, reviewed, and agree with the discharge instructions and disposition.
--- NOTE | 2017-09-10 17:12 | C.PDOC ---
History Of Present Illness 72 year old male with a PMHx of diabetes, hypertension, hyperlipidimia, and opioid abuse presents to the ED for an evaluation. Patient states he took his blood pressure at home and it was 70 systolic, patient became concerned which prompted the visit to the ER. He notes he was at baseline earlier. Patient states he visited his PMD on Monday, and he was at baseline. Patient denies any other medical complaints. Time Seen by Provider: 09/10/17 16:56 Chief Complaint (Nursing): Medical Clearance History Per: Patient History/Exam Limitations: no limitations Onset/Duration Of Symptoms: Hrs Current Symptoms Are (Timing): Still Present Past Medical History Reviewed: Historical Data, Nursing Documentation, Vital Signs Vital Signs: Last Vital Signs Temp 98.4 F 09/10/17 16:30 Pulse 74 09/10/17 17:13 Resp 16 09/10/17 17:13 BP 97/59 L 09/10/17 17:13 Pulse Ox 96 09/10/17 18:10 - Medical History PMH: Anxiety, Back Problems, HTN, Hypercholesterolemia, Malignancy (Prostate) Denies: Chronic Kidney Disease Other Surgeries: Hx of surgeries - [facility] Procedures DETOXIFICATION SERVICES FOR SUBSTANCE ABUSE TREATMENT (04/14/17) DX ULTRASOUND NEC (01/21/13) INDIV PSYCHOTHERAPY FOR SUBSTANCE ABUSE TREATMENT, SUPPORT (04/14/17) INDIV PSYCHOTHERAPY FOR SUBSTANCE ABUSE, COGNITIV BEHAVIORAL (04/14/17) INDIV PSYCHOTHERAPY FOR SUBSTANCE ABUSE, PSYCHOEDUCATION (04/14/17) PERCUTAN NEEDLE BIOPSY OF PROSTATE (01/21/13) Family History: States: No Known Family Hx - Social History Hx Tobacco Use: Yes Hx Alcohol Use: No Hx Substance Use: No - Immunization History Hx Tetanus Toxoid Vaccination: Yes Hx Influenza Vaccination: Yes Hx Pneumococcal Vaccination: Yes Review Of Systems Except As Marked, All Systems Reviewed And Found Negative. Constitutional: Negative for: Fever, Chills Gastrointestinal: Negative for: Nausea, Vomiting, Diarrhea Physical Exam - Physical Exam Appears: Non-toxic, No Acute Distress Skin: Normal Color, Warm, Dry Head: Atraumatic, Normacephalic Eye(s): bilateral: Normal Inspection Oral Mucosa: Moist Neck: Normal ROM Chest: Symmetrical Cardiovascular: Rhythm Regular, No Murmur Respiratory: Normal Breath Sounds, No Rales, No Rhonchi, No Wheezing Extremity: Normal ROM Neurological/Psych: Oriented x3, Normal Speech Gait: Steady ED Course And Treatment O2 Sat by Pulse Oximetry: 96 (RA) Pulse Ox Interpretation: Normal Medical Decision Making Medical Decision Making: Patient assessed and examined. As per triage, patient's blood pressure was 92 systolic, and at bedside blood pressure is 97 systolic. Patient is stable, and is no acute distress. Patient declined to have further medical evaluation and treatment and wished to be discharged from the Emergency Department. Patient advised to follow up with his primary medical doctor or clinic in 2-5 days for further evaluation and return to the emergency department at any time if symptoms persist or worsen. Disposition - Disposition Disposition: HOME/ ROUTINE Disposition Time: 17:07 Condition: STABLE Additional Instructions: please discuss your blood pressure medications with your doctor. you are declining any lab work and imaging, but you are able to return to er with worsening symptoms or concerns. you can hold one of your blood pressure medications until you can discuss with your doctor. Instructions: Low Blood Pressure Forms: [employer] (Romanian) - Clinical Impression Clinical Impression: Encounter for medical assessment, Blood pressure check - Scribe Statement The provider has reviewed the documentation as recorded by the Scribe Sybil Steele All medical record entries made by the Scribe were at my direction and personally dictated by me. I have reviewed the chart and agree that the record accurately reflects my personal performance of the history, physical exam, medical decision making, and the department course for this patient. I have also personally directed, reviewed, and agree with the discharge instructions and disposition.
[2017-09-10 17:14] VITALS: BP 97/59; PULSE 74; RESP 16
[2017-09-10 17:27] VITALS: O2SAT 96
== END 2017-09-10 17:15 | disposition home or self-care (01) ==
LOC: C.ER 16:26
DX: Z00.8 Encounter for other general examination (principal)

== ENCOUNTER 2017-11-15 11:56 | Inpatient (IN) | payer MEDICARE, BC ==
[2017-11-15 11:56] VITALS: BMI 24.8
--- NOTE | 2017-11-15 12:26 | C.PDOC ---
History Of Present Illness 72 year old male presents to the ER with a complaint of low blood pressure. Patient states he took his pressure at home at noticed it was in the 50s, normally he is 125-130/85-90. He is currently on 2 blood pressure medications and notes he took his morning dose today. Patient states he feels sluggish but otherwise denies chest pain, SOB, fever, chills, nausea, or vomiting. 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, and Prostate Cancer (received radiation therapy) Time Seen by Provider: 11/15/17 12:25 Chief Complaint (Nursing): Dizziness/Lightheaded History Per: Patient History/Exam Limitations: no limitations Onset/Duration Of Symptoms: Hrs Current Symptoms Are (Timing): Still Present Recent travel outside of the [place]: No Past Medical History Reviewed: Historical Data, Nursing Documentation, Vital Signs Vital Signs: Last Vital Signs Temp 99 F 11/15/17 12:08 Pulse 67 11/15/17 14:11 Resp 18 11/15/17 14:11 BP 103/58 L 11/15/17 14:11 Pulse Ox 95 11/15/17 14:38 - Medical History PMH: Anxiety, Back Problems, HTN, Hypercholesterolemia, Malignancy (Prostate) Denies: Chronic Kidney Disease - [facility] Procedures DETOXIFICATION SERVICES FOR SUBSTANCE ABUSE TREATMENT (04/14/17) DX ULTRASOUND NEC (01/21/13) INDIV PSYCHOTHERAPY FOR SUBSTANCE ABUSE TREATMENT, SUPPORT (04/14/17) INDIV PSYCHOTHERAPY FOR SUBSTANCE ABUSE, COGNITIV BEHAVIORAL (04/14/17) INDIV PSYCHOTHERAPY FOR SUBSTANCE ABUSE, PSYCHOEDUCATION (04/14/17) PERCUTAN NEEDLE BIOPSY OF PROSTATE (01/21/13) Family History: States: Unknown Family Hx - Social History Hx Tobacco Use: Yes Hx Alcohol Use: No Hx Substance Use: No - Immunization History Hx Tetanus Toxoid Vaccination: Yes Hx Influenza Vaccination: Yes Hx Pneumococcal Vaccination: Yes Review Of Systems Except As Marked, All Systems Reviewed And Found Negative. Constitutional: Positive for: Other ("feels sluggish") Cardiovascular: Negative for: Chest Pain, Palpitations Respiratory: Negative for: Cough, Shortness of Breath Gastrointestinal: Negative for: Nausea, Vomiting Genitourinary: Negative for: Dysuria, Hematuria Skin: Negative for: Rash Physical Exam - Physical Exam Appears: Non-toxic Skin: Normal Color, Warm, Dry Head: Atraumatic, Normacephalic Eye(s): bilateral: Normal Inspection Oral Mucosa: Moist Neck: Normal, Supple Chest: Symmetrical, No Tenderness Cardiovascular: Rhythm Regular, Other (BP 80 systolic) Respiratory: Normal Breath Sounds, No Rales, No Rhonchi, No Wheezing Gastrointestinal/Abdominal: Soft, No Tenderness Back: No CVA Tenderness Extremity: Normal ROM (x4) Pulses: Left Radial: Normal, Right Radial: Normal Neurological/Psych: Oriented x3, Normal Speech ED Course And Treatment - Laboratory Results Result Diagrams: 11/15/17 13:03 11/15/17 13:03 ECG: Interpreted By Me ECG Rhythm: Sinus Rhythm ECG Interpretation: Normal Rate From EC O2 Sat by Pulse Oximetry: 95 (Room air) Pulse Ox Interpretation: Normal - Radiology CXR: Interpreted by Me CXR Interpretation: Yes: No Acute Disease Progress - Re-Evaluation Re-evaluation Note: 11/15/17 14:39 SP IVF 2L SBP 103. PS FEELS BETTER +UO. D/W DR VALERA CF PMD: PT W HO PRIOR RHABDO W RENAL INSUFF. REQUESTS CPK REEVAL BP AFTER 2ND IVF BOLUS - Data Reviewed Data Reviewed: Lab, Diagnostic imaging, EKG, Old records - Critical Care Citical Care: Excluding Proc Time Critical Care Time: 90 minutes Medical Decision Making Medical Decision Making: Plan: * Blood work * EKG * CXR * Urinalysis Disposition Counseled Patient/Family Regarding: Studies Performed, Diagnosis - Disposition Disposition: HOSPITALIZED Disposition Time: 14:36 Condition: SERIOUS Forms: [facility] (Uzbek) - POA Present On Arrival: None - Clinical Impression Clinical Impression: Acute renal insufficiency, Pneumonia, Hypotension - Scribe Statement The provider has reviewed the documentation as recorded by the Scribolive Regan All medical record entries made by the Loriibolive were at my direction and personally dictated by me. I have reviewed the chart and agree that the record accurately reflects my personal performance of the history, physical exam, medical decision making, and the department course for this patient. I have also personally directed, reviewed, and agree with the discharge instructions and disposition.
[2017-11-15 13:10] LABS: BASO # 0.1 K/uL (0.0-0.2); BASO % 0.5 % (0.0-2.0); EOS # 0.2 K/uL (0.0-0.7); HEMOGLOBIN 13.7 g/dL (12.0-18.0); LYMPH # 4.9 K/uL (1.0-4.3); LYMPH % 47.9 % (20.0-40.0); MEAN CELL VOLUME 88.1 fL (80.0-94.0); MEAN CORPUSCULAR HEMOGLOBIN 30.6 pg (27.0-31.0); MEAN CORPUSCULAR HGB CONC 34.7 g/dL (33.0-37.0); MEAN PLATELET VOLUME 7.5 fL (7.2-11.7); MONO # 0.7 K/uL (0.0-0.8); MONO % 6.4 % (0.0-10.0); NEUT # 4.4 K/uL (1.8-7.0); NEUT % 43.2 % (50.0-75.0); NRBC % 0.1 % (0.0-2.0); RBC 4.48 Mil/uL (4.40-5.90); RED CELL DISTRIBUTION WIDTH 14.1 % (11.5-14.5); WHITE BLOOD COUNT 10.3 K/uL (4.8-10.8)
[2017-11-15 13:29] LABS: VENOUS BLOOD GAS BASE EXCESS 3.2 mmol/L (0.0-2.0); VENOUS BLOOD GAS PCO2 45 mmHg (40-60); VENOUS BLOOD GAS PO2 47 mm/Hg (30-55); VENOUS BLOOD PH 7.41 (7.32-7.43)
[2017-11-15] MEDS ORDERED: Azithromycin 500 MG in Sodium Chloride 0.9% 250 ML IV STA (13:31)
--- NOTE | 2017-11-15 13:34 | RAD ---
HISTORY: WEAKNESS COMPARISON: Chest x-ray performed 04/14/17 TECHNIQUE: Chest PA and lateral FINDINGS: Examination limited by habitus. LUNGS: Patchy left lower lobe opacities. Please note that chest x-ray has limited sensitivity for the detection of pulmonary masses. PLEURA: No significant pleural effusion identified. No definite pneumothorax . CARDIOVASCULAR: Cardiomegaly. Atherosclerotic calcifications of the aortic knob. Ectatic aorta. OSSEOUS STRUCTURES: Osseous demineralization. Kyphosis. VISUALIZED UPPER ABDOMEN: Unremarkable. OTHER FINDINGS: None. IMPRESSION: Patchy opacities at the left lung base ; correlate clinically for pneumonia. Cardiomegaly. Atherosclerotic calcification of the aorta. Findings discussed with Dr. Gramajo on 11/15/17 at 1:31 p.m.
[2017-11-15] MEDS ORDERED: Sodium Chloride 0.9% 250 ML IV ONE (13:44)
[2017-11-15] MEDS ORDERED: Sodium Chloride 0.9% 2,000 ML ONE (13:44)
[2017-11-15 14:03] LABS: ALB/GLOB RATIO 1.7 (1.0-2.1); ALBUMIN 4.7 g/dL (3.5-5.0); CALCIUM 9.5 mg/dl (8.6-10.4)
[2017-11-15 14:34] LABS: SQUAMOUS EPITHIAL 2 /hpf (0-5); URINE BACTERIA RARE (<OCC); URINE BILIRUBIN NEGATIVE (NEGATIVE); URINE BLOOD NEGATIVE (NEGATIVE); URINE CLARITY Hazy (Clear); URINE COLOR Amber (YELLOW); URINE GLUCOSE (UA) NORMAL (Normal); URINE HYALINE CAST >20 /lpf (0-2); URINE LEUKOCYTE ESTERASE NEG Leu/uL (Negative); URINE PROTEIN NEGATIVE (NEGATIVE)
[2017-11-15] MEDS ORDERED: Glucagon Recombinant 1 mg Inj IV STA (15:19)
[2017-11-15] MEDS ORDERED: Glucagon Recombinant 1 mg Inj ONE (15:40)
[2017-11-15 17:30] LABS: CALCIUM 7.8 mg/dl (8.6-10.4)
--- NOTE | 2017-11-15 18:30 | CP.PCM.HP ---
<Dann Santoro - Last Filed: 11/15/17 18:23> History of Present Illness - History of Present Illness History of Present Illness: History and Physical for Dr. Sumner Patient is a 72 year old male with past medical history of HTN, HLD, GERD, constipation, spinal degenerative disease with disc herniation, prostate cancer s/p radiation presents to [facility] on 11/15 complaining of low blood pressure. Patient reports that he checked his blood pressure this morning in preparation of a scheduling spinal epidural injection tomorrow with his pain management doctor. Patient reports that his left arm at home as 58/40 mmHg and right arm at home was 50/40 mmHg. His blood pressure normally runs 130/85-90 mmHg. Patient took his medications at 8:30 AM per usual and check his blood pressure at 11:15 AM with machine that he has had for 6-7 years and regularly uses. Patient states that he has had episodes of low blood pressure in the past , the most recent being 4-5 weeks ago when patient went for an epidural injection and BP at office was found to be very low. Pt was given IV fluids at that time, and his BP corrected and patient did recieve the epidural injection at that time. Pt has continued to take his BP meds daily since that time. Patient states that he noticed his blood pressure has been lower since 03/23 when he was admitted for oxycodone withdrawal. Patient states that for the past 4 days he has felt wobbly and lethargic with decreased appetite and lightheadedness in the morning upon rising. Patients contributes that patient had not been adhering to his normal routine for the past 4 days and instead was sleeping more than usual, but was back to his normal morning routing today. Additionally, patient notes that his neighbor was recently diagnosed with PNA. Patient denies current dizziness, lightheadedness, chest pain, headache, changes to vision, fevers, chills, cough, diarrhea, abdominal pain, blood in his stool, dysuria. On ROS patient admits to tinging in his left arm which he attributes to a ganglion cyst surgery. Additionally, patient states that approximately 4-5 weeks ago he stopped taking lyrica due to bilateral ankle swelling. Patient admits to starting a new medication Gabapentin 2 weeks ago (not sure of dosage). PMHx: HTN, HLD, GERD, constipation, spinal degenerative disease with disc herniation, prostate cancer s/p radiation Home Medications: - AM- Rapaflow 8 mg PO daily, suboxone 8 mg PO, escitalopram 10 mg PO daily, omeprazole 20 mg PO daily, lisinopril/HCTZ 20/25 mg PO daily, multivitamin, vitamin C 500 mg PO daily, osteo biflex joint health, digestive probiotic - PM- Atenolol 50 mg PO daily, simvastatin 40 mg PO daily, suboxone 8 mg PO daily, mirtazepine 15 mg PO daily, trazodone 50 mg PO daily, ASA 81 mg PO daily Allx: NKDA PSHx: - spinal injections - inguinal hernia 2002 and 2011 - left ganglion cyst FHx: Denies, patient adopted Social: - smokes half a pack a day, used to smoke 1 1/2 pack per day, duration 50 years - history of alcohol abuse, stopped drinking 15 months ago - history of recreational drug abuse; stopped heroin use in 2001, stopped Percocet and oxycodone use in 05/21 Code: Full Code PMD: Dr. Adan Sharma Present on Admission - Present on Admission Any Indicators Present on Admission: No Review of Systems - Constitutional Constitutional: Fatigue. absent: Chills, Fever - EENT Eyes: absent: Blind Spots, Blurred Vision, Diplopia, Photophobia Nose/Mouth/Throat: absent: Nasal Congestion, Sinus Pain, Sinus Pressure Additional comments: No cough, no rhinorrhea - Cardiovascular Cardiovascular: Lightheadedness. absent: Chest Pain, Dyspnea, Edema, Palpitations, Pedal Edema Additional comments: +Lightheadedness, worse when pt stands quickly - Respiratory Respiratory: absent: Cough, Wheezing, Chest Congestion - Gastrointestinal Gastrointestinal: absent: Abdominal Pain, Constipation, Diarrhea, Nausea - Genitourinary Genitourinary: absent: Difficulty Urinating, Hematuria Additional comments: +Hx BPH - Musculoskeletal Musculoskeletal: Back Pain (+Chronic back pain), Tingling (+LUE tingling 2/2 residual nerve injury s/p ganglion cyst removal ). absent: Muscle Weakness - Neurological Neurological: Dizziness (+mild dizziness/lightheadedness), Tingling (+LUE tingling, chronic), Weakness, Other (+gait disturbances - "unsteady on my feet") . absent: Confusion, Focal Weakness, Headaches, Loss of Vision, Memory Loss - Endocrine Endocrine: Fatigue. absent: Polydipsia, Polyphagia Past Patient History - Past Medical History & Family History Past Medical History?: Yes - Past Social History Smoking Status: Heavy Smoker > 10 Cigarettes Daily - CARDIAC Hx Hypercholesterolemia: Yes Hx Hypertension: Yes - PULMONARY Hx Respiratory Disorders: No - NEUROLOGICAL Hx Neurological Disorder: No - HEENT Hx HEENT Problems: No - RENAL Hx Chronic Kidney Disease: No - ENDOCRINE/METABOLIC Hx Endocrine Disorders: No - HEMATOLOGICAL/ONCOLOGICAL Hx Blood Disorders: No - INTEGUMENTARY Hx Dermatological Problems: No - MUSCULOSKELETAL/RHEUMATOLOGICAL Hx Musculoskeletal Disorders: Yes - GASTROINTESTINAL Hx Gastrointestinal Disorders: Yes Hx Gastroesophageal Reflux: Yes Hx Hemorrhoids: Yes - GENITOURINARY/GYNECOLOGICAL Hx Genitourinary Disorders: Yes Hx Prostate Cancer: Yes Hx Prostate Problems: Yes - PSYCHIATRIC Hx Anxiety: Yes Hx Substance Use: No - SURGICAL HISTORY Hx Surgeries: Yes Hx Herniorrhaphy: Yes Hx Orthopedic Surgery: Yes (LT WRIST SX X2) Other/Comment: PROSTATE BX - ANESTHESIA Hx Anesthesia: Yes Hx Anesthesia Reactions: No Hx Malignant Hyperthermia: No Meds Allergies/Adverse Reactions: Allergies Allergy/AdvReac Type Severity Reaction Status Date / Time No Known Allergies Allergy Verified 09/10/17 16:29 Physical Exam - Head Exam Head Exam: ATRAUMATIC, NORMAL INSPECTION - Eye Exam Eye Exam: EOMI, Normal appearance - ENT Exam ENT Exam: Mucous Membranes Dry - Respiratory Exam Respiratory Exam: Clear to Auscultation Bilateral, NORMAL BREATHING PATTERN - Cardiovascular Exam Cardiovascular Exam: REGULAR RHYTHM, +S1, +S2 - GI/Abdominal Exam GI & Abdominal Exam: Normal Bowel Sounds, Soft - Extremities Exam Extremities exam: Positive for: pedal pulses present. Negative for: normal capillary refill (+3 sec cap refill), pedal edema, tenderness - Neurological Exam Neurological exam: Alert, CN II-XII Intact, Normal Gait, Oriented x3, Reflexes Normal Additional comments: Motor and sensory fully intact b/l - Psychiatric Exam Psychiatric exam: Normal Affect, Normal Mood - Skin Skin Exam: Dry, Intact, Pallor Additional comments: Dry, cracked lips Results - Vital Signs Recent Vital Signs: Last Vital Signs Temp 99 F 11/15/17 12:08 Pulse 72 11/15/17 15:28 Resp 19 11/15/17 15:28 BP 119/73 11/15/17 15:28 Pulse Ox 96 11/15/17 15:28 - Labs Result Diagrams: 11/15/17 13:03 11/15/17 17:16 Labs: Laboratory Results - last 24 hr 11/15/17 11/15/17 11/15/17 13:03 13:03 13:24 WBC 10.3 RBC 4.48 Hgb 13.7 Hct 39.5 MCV 88.1 D MCH 30.6 MCHC 34.7 RDW 14.1 Plt Count 233 MPV 7.5 Neut % (Auto) 43.2 L Lymph % (Auto) 47.9 H [place] % (Auto) 6.4 Eos % (Auto) 2.0 Baso % (Auto) 0.5 Neut # (Auto) 4.4 Lymph # (Auto) 4.9 H [place] # (Auto) 0.7 Eos # (Auto) 0.2 Baso # (Auto) 0.1 D-Dimer, Quantitative pO2 47 VBG pH 7.41 VBG pCO2 45 VBG HCO3 27.0 VBG Total CO2 29.9 H VBG O2 Sat (Calc) 87.2 H VBG Base Excess 3.2 H VBG Potassium 3.6 Glucose 93 Lactate 1.1 Sodium 142 139.0 Potassium 3.9 Chloride 101 105.0 Carbon Dioxide 28 Anion Gap 17 BUN 34 H Creatinine 3.2 H Est GFR ( Amer) 23 Est GFR (Non-Af Amer) 19 Random Glucose 111 H Calcium 9.5 Total Bilirubin 0.3 AST 26 ALT 28 Alkaline Phosphatase 58 Total Creatine Kinase 155 Troponin I Total Protein 7.3 Albumin 4.7 Globulin 2.7 Albumin/Globulin Ratio 1.7 Procalcitonin Venous Blood Potassium 3.6 Urine Color Urine Clarity Urine pH Ur Specific [place] Urine Protein Urine Glucose (UA) Urine Ketones Urine Blood Urine Nitrate Urine Bilirubin Urine Urobilinogen Ur Leukocyte Esterase Urine WBC (Auto) Urine RBC (Auto) Ur Squamous Epith Cells Urine Bacteria Hyaline Casts 11/15/17 11/15/17 11/15/17 14:20 15:30 15:30 WBC RBC Hgb Hct MCV MCH MCHC RDW Plt Count MPV Neut % (Auto) Lymph % (Auto) [place] % (Auto) Eos % (Auto) Baso % (Auto) Neut # (Auto) Lymph # (Auto) [place] # (Auto) Eos # (Auto) Baso # (Auto) D-Dimer, Quantitative < 200 pO2 VBG pH VBG pCO2 VBG HCO3 VBG Total CO2 VBG O2 Sat (Calc) VBG Base Excess VBG Potassium Glucose Lactate Sodium Potassium Chloride Carbon Dioxide Anion Gap BUN Creatinine Est GFR ( Amer) Est GFR (Non-Af Amer) Random Glucose Calcium Total Bilirubin AST ALT Alkaline Phosphatase Total Creatine Kinase Troponin I Total Protein Albumin Globulin Albumin/Globulin Ratio Procalcitonin 0.05 L Venous Blood Potassium Urine Color María Elena Urine Clarity Hazy Urine pH 5.0 Ur Specific [place] 1.020 Urine Protein Negative Urine Glucose (UA) Normal Urine Ketones Negative Urine Blood Negative Urine Nitrate Negative Urine Bilirubin Negative Urine Urobilinogen 2.0 Ur Leukocyte Esterase Neg Urine WBC (Auto) 3 Urine RBC (Auto) < 1 Ur Squamous Epith Cells 2 Urine Bacteria Rare Hyaline Casts >20 H 11/15/17 11/15/17 15:30 17:16 WBC RBC Hgb Hct MCV MCH MCHC RDW Plt Count MPV Neut % (Auto) Lymph % (Auto) [place] % (Auto) Eos % (Auto) Baso % (Auto) Neut # (Auto) Lymph # (Auto) [place] # (Auto) Eos # (Auto) Baso # (Auto) D-Dimer, Quantitative pO2 VBG pH VBG pCO2 VBG HCO3 VBG Total CO2 VBG O2 Sat (Calc) VBG Base Excess VBG Potassium Glucose Lactate Sodium 145 Potassium 3.7 Chloride 111 H Carbon Dioxide 24 Anion Gap 14 BUN 29 H Creatinine 2.2 H Est GFR ( Amer) 36 Est GFR (Non-Af Amer) 30 Random Glucose 106 Calcium 7.8 L Total Bilirubin AST ALT Alkaline Phosphatase Total Creatine Kinase Troponin I < 0.0120 Total Protein Albumin Globulin Albumin/Globulin Ratio Procalcitonin Venous Blood Potassium Urine Color Urine Clarity Urine pH Ur Specific [place] Urine Protein Urine Glucose (UA) Urine Ketones Urine Blood Urine Nitrate Urine Bilirubin Urine Urobilinogen Ur Leukocyte Esterase Urine WBC (Auto) Urine RBC (Auto) Ur Squamous Epith Cells Urine Bacteria Hyaline Casts Assessment & Plan - Assessment and Plan (Free Text) Assessment: Assessment/Plan 1) Hypertension * Admitted to telemetry * s/p 3L NS in ED * NS 125cc/hr * Antihypertensives held (diuretic, CIRA, BB) * Recieved 1 dose glucagon in ED for BB reversal * CT head w/o contrast * Urine tox screen 2) Pneumonia * CXR 11/15 - Patchy opacities at left lung base. Correlate clinically for pneumonia. Cardiomegaly. Atherosclerotic calcification of the aorta. * F/u CXR tomorrow * Strep Pneumonia Urine * Legionella Urine * Mycoplasma * Procalcitonin .05, f/u repeat * Abx * Rocephin 1gm IV Qdaily * Azithromycin 500mg IV Qdaily * Pneumonia Severity Index: 151 - 27-29% risk of mortality 3) Acute Renal Failure * Antihypertensives held * BUN/Cr at 17:00 34/3.2 ---> 29/2.2; f/u tomorrow * Strict I and O * Nephro consulted (Dr. Chung). Help appreciated. 4) HTN, history of * Antihypertensives held 5) Lipid disorder * Statin held * Lipid panel tomorrow AM 6) Chronic Back Pain * Psych consulted (Dr. Kincaid). Help appreciated --> Possible restart suboxone * Trazodone 50 mg po HS * Lexapro 10 mg po daily * Mirtazapine 7.5 mg po daily (renal adjusted) 7) History of Gastritis * Pepcid 20mg PO daily * Florastor 250 mg PO q12 8) Hx prostate CA * BPH meds held 2/ hypotension * Bladder scan Q shift 9) Abnormal EKG * Cardiology consulted (Dr. Ozuna). Help appreciated. 10) PPx * Heparin 5000 mg SC Q8 * Activity: Bedrest, bathroom comode * Pepcid 2omg PO daily Assessment and Plan Discussed with Dr. Taisha Santoro, PGY-1 <Toshia Sumner V - Last Filed: 11/15/17 23:57> Results - Vital Signs Recent Vital Signs: Last Vital Signs Temp 97.4 F L 11/15/17 21:33 Pulse 93 H 11/15/17 21:33 Resp 20 11/15/17 21:33 BP 112/73 11/15/17 21:33 Pulse Ox 94 L 11/15/17 21:33 - Labs Result Diagrams: 11/15/17 13:03 11/15/17 17:16 Labs: Laboratory Results - last 24 hr 11/15/17 11/15/17 11/15/17 13:03 13:03 13:24 WBC 10.3 RBC 4.48 Hgb 13.7 Hct 39.5 MCV 88.1 D MCH 30.6 MCHC 34.7 RDW 14.1 Plt Count 233 MPV 7.5 Neut % (Auto) 43.2 L Lymph % (Auto) 47.9 H [place] % (Auto) 6.4 Eos % (Auto) 2.0 Baso % (Auto) 0.5 Neut # (Auto) 4.4 Lymph # (Auto) 4.9 H [place] # (Auto) 0.7 Eos # (Auto) 0.2 Baso # (Auto) 0.1 D-Dimer, Quantitative pO2 47 VBG pH 7.41 VBG pCO2 45 VBG HCO3 27.0 VBG Total CO2 29.9 H VBG O2 Sat (Calc) 87.2 H VBG Base Excess 3.2 H VBG Potassium 3.6 Glucose 93 Lactate 1.1 Sodium 142 139.0 Potassium 3.9 Chloride 101 105.0 Carbon Dioxide 28 Anion Gap 17 BUN 34 H Creatinine 3.2 H Est GFR ( Amer) 23 Est GFR (Non-Af Amer) 19 Random Glucose 111 H Calcium 9.5 Total Bilirubin 0.3 AST 26 ALT 28 Alkaline Phosphatase 58 Total Creatine Kinase 155 Troponin I Total Protein 7.3 Albumin 4.7 Globulin 2.7 Albumin/Globulin Ratio 1.7 Procalcitonin Venous Blood Potassium 3.6 Urine Color Urine Clarity Urine pH Ur Specific [place] Urine Protein Urine Glucose (UA) Urine Ketones Urine Blood Urine Nitrate Urine Bilirubin Urine Urobilinogen Ur Leukocyte Esterase Urine WBC (Auto) Urine RBC (Auto) Ur Squamous Epith Cells Urine Bacteria Hyaline Casts Urine Opiates Screen Urine Methadone Screen Ur Barbiturates Screen Ur Phencyclidine Scrn Ur Amphetamines Screen U Benzodiazepines Scrn U Oth Cocaine Metabols U Cannabinoids Screen 11/15/17 11/15/17 11/15/17 14:20 15:30 15:30 WBC RBC Hgb Hct MCV MCH MCHC RDW Plt Count MPV Neut % (Auto) Lymph % (Auto) [place] % (Auto) Eos % (Auto) Baso % (Auto) Neut # (Auto) Lymph # (Auto) [place] # (Auto) Eos # (Auto) Baso # (Auto) D-Dimer, Quantitative < 200 pO2 VBG pH VBG pCO2 VBG HCO3 VBG Total CO2 VBG O2 Sat (Calc) VBG Base Excess VBG Potassium Glucose Lactate Sodium Potassium Chloride Carbon Dioxide Anion Gap BUN Creatinine Est GFR ( Amer) Est GFR (Non-Af Amer) Random Glucose Calcium Total Bilirubin AST ALT Alkaline Phosphatase Total Creatine Kinase Troponin I Total Protein Albumin Globulin Albumin/Globulin Ratio Procalcitonin 0.05 L Venous Blood Potassium Urine Color María Elena Urine Clarity Hazy Urine pH 5.0 Ur Specific [place] 1.020 Urine Protein Negative Urine Glucose (UA) Normal Urine Ketones Negative Urine Blood Negative Urine Nitrate Negative Urine Bilirubin Negative Urine Urobilinogen 2.0 Ur Leukocyte Esterase Neg Urine WBC (Auto) 3 Urine RBC (Auto) < 1 Ur Squamous Epith Cells 2 Urine Bacteria Rare Hyaline Casts >20 H Urine Opiates Screen Urine Methadone Screen Ur Barbiturates Screen Ur Phencyclidine Scrn Ur Amphetamines Screen U Benzodiazepines Scrn U Oth Cocaine Metabols U Cannabinoids Screen 11/15/17 11/15/17 11/15/17 15:30 17:16 18:30 WBC RBC Hgb Hct MCV MCH MCHC RDW Plt Count MPV Neut % (Auto) Lymph % (Auto) [place] % (Auto) Eos % (Auto) Baso % (Auto) Neut # (Auto) Lymph # (Auto) [place] # (Auto) Eos # (Auto) Baso # (Auto) D-Dimer, Quantitative pO2 VBG pH VBG pCO2 VBG HCO3 VBG Total CO2 VBG O2 Sat (Calc) VBG Base Excess VBG Potassium Glucose Lactate Sodium 145 Potassium 3.7 Chloride 111 H Carbon Dioxide 24 Anion Gap 14 BUN 29 H Creatinine 2.2 H Est GFR ( Amer) 36 Est GFR (Non-Af Amer) 30 Random Glucose 106 Calcium 7.8 L Total Bilirubin AST ALT Alkaline Phosphatase Total Creatine Kinase Troponin I < 0.0120 Total Protein Albumin Globulin Albumin/Globulin Ratio Procalcitonin Venous Blood Potassium Urine Color Urine Clarity Urine pH Ur Specific [place] Urine Protein Urine Glucose (UA) Urine Ketones Urine Blood Urine Nitrate Urine Bilirubin Urine Urobilinogen Ur Leukocyte Esterase Urine WBC (Auto) Urine RBC (Auto) Ur Squamous Epith Cells Urine Bacteria Hyaline Casts Urine Opiates Screen Negative Urine Methadone Screen Negative Ur Barbiturates Screen Negative Ur Phencyclidine Scrn Negative Ur Amphetamines Screen Negative U Benzodiazepines Scrn Positive U Oth Cocaine Metabols Negative U Cannabinoids Screen Negative Attending/Attestation - Attestation I have personally seen and examined this patient.: Yes I have fully participated in the care of the patient.: Yes I have reviewed all pertinent clinical information: Yes Notes (Text): Patient seen, examined, and case discussed with medical center representative. Patient seen in [facility]; multiple times during the day. Patient known to me from last admission in Mar 2017 and reports he remembers me as well. Patient comes in following low blood pressure reading and not feeling right. Patient denies syncope, denies falls. Patient has been taking his blood pressure medications including beta madyson, cira-inhibitor and diuretic. He reports five weeks ago while meeting his pain management doctor he was reported he had blood pressure then as well but he had recieved IV fluids and felt better. Patient is seen pain management for chronic back pain, including epidural injection shots. Patient is also receiving suboxone given prior heavy narcotic use given pain to the back. Patient also notes his neighbor is fighting off pneumonia. He denies fever, denies chills. Clinically on exam, patient is tired, pale, and dehydrated noted around oral mucosa lips appeared cracked and dry. Patient's radial and pedal pulses intact. Discussed admitting orders with resident in detail 1) Hypotension * Admitted to telemetry * s/p 3L NS in ED * Start NS 125cc/hr * Antihypertensives held (diuretic, CIRA, BB) * Recieved 1 dose glucagon in ED for BB reversal * CT head w/o contrast * Urine tox screen * TSH, Free T4, and Cortisol AM * Troponin negative, d-dimer negative 2) Pneumonia * CXR 11/15 - Patchy opacities at left lung base. Correlate clinically for pneumonia. Cardiomegaly. Atherosclerotic calcification of the aorta. * F/u CXR tomorrow after hydration * Pending: Strep Pneumonia Urine, Legionella Urine, Mycoplasma IgM * Procalcitonin .05 * Abx * Rocephin 1gm IV Qdaily * Azithromycin 500mg IV Qdaily * Pneumonia Severity Index: 151 - 27-29% risk of mortality * Lactate acid normal * Patient in the ED has received dose of Rocephin and Azithromycin 3) Acute Renal Failure * Antihypertensives held * BUN/Cr at 17:00 34/3.2 ---> 29/2.2; f/u tomorrow * Receiving IV fluids * Strict I and O * Nephro consulted (Dr. Chung). Help appreciated. 4) HTN, history of * Antihypertensives held * Aspirin 81mg once day 5) Lipid disorder * Statin held * Lipid panel tomorrow AM 6) Chronic Back Pain * Psych consulted (Dr. Kincaid). Help appreciated --> Possible restart suboxone * Trazodone 50 mg po HS * Lexapro 10 mg po daily * Mirtazapine 7.5 mg po daily (renal adjusted) (takes higher dose at home) 7) History of Gastritis * Pepcid 20mg PO daily 8) Hx prostate CA * BPH meds held 2/2 hypotension * Bladder scan Q shift 9) Abnormal EKG * Cardiology consulted (Dr. Ozuna). Help appreciated. * Recommends for echo 10) PPx * Heparin 5000 mg SC Q8 * Activity: Bedrest, bathroom comode * Pepcid 2omg PO daily * PT/OT eval
[2017-11-15 19:22] LABS: BARBITURATES, UR NEGATIVE (NEGATIVE); OPIATES, UR NEGATIVE (NEGATIVE); PHENCYCLIDINE, UR NEGATIVE (NEGATIVE)
[2017-11-15 19:27] LABS: BENZODIAZEPINES, UR POSITIVE (NEGATIVE)
[2017-11-15] MEDS: Sodium Chloride 0.9% 1,000 ML IV SCH (19:28)
--- NOTE | 2017-11-15 19:50 | CP.PCM.CON ---
History of Present Illness - History of Present Illness History of Present Illness: I was asked to see patient by medical team. Patient is a 72 year old male with PMH HTN who presents with hypotension. The patient took his pressure at home and was found to have hypotnesion. He denies chest pain or dyspnea. He denies syncope. Review of Systems - Constitutional Constitutional: absent: As Per HPI, Anorexia, Chills, Daytime Sleepiness, Excessive Sweating, Fatigue, Fever, Frequent Falls, Headache, Increased Appetite , Lethargy, Malaise, Night Sweats, Snoring, Sleep Apnea, Weight Gain, Weight Loss, Weakness, Other - EENT Eyes: absent: As Per HPI, Blind Spots, Blurred Vision, Change in Vision, Decreased Night Vision, Diplopia, Discharge, Dry Eye, Exophthalmos, Floaters, Irritation, Itchy Eyes, Loss of Peripheral Vision, Pain, Photophobia, Requires Corrective Lenses, Sees Flashes, Spots in Vision, Tunnel Vision, Other Visual Disturbances, Loss of Vision, Other Ears: absent: As Per HPI, Decreased Hearing, Ear Discharge, Ear Pain, Tinnitus, Abnormal Hearing, Disequilibrium, Dizziness, Other Nose/Mouth/Throat: absent: As Per HPI, Epistaxis, Nasal Congestion, Nasal Discharge, Nasal Obstruction, Nasal Trauma, Nose Pain, Post Nasal Drip, Sinus Pain, Sinus Pressure, Bleeding Gums, Change in Voice, Dental Pain, Dry Mouth, Dysphagia, Halitosis, Hoarsness, Lip Swelling, Mouth Lesions, Mouth Pain, Odynophagia, Sore Throat, Throat Swelling, Tongue Swelling, Facial Pain, Neck Pain, Neck Mass, Other - Cardiovascular Cardiovascular: absent: As Per HPI, Acrocyanosis, Chest Pain, Chest Pain at Rest , Chest Pain with Activity, Claudication, Diaphoresis, Dyspnea, Dyspnea on Exertion, Edema, Irregular Heart Rhythm, Pain Radiating to Arm/Neck/Jaw, Leg Edema, Leg Ulcers, Lightheadedness, Orthopnea, Palpitations, Paroxysmal Nocturnal Dyspnea, Pedal Edema, Radiating Pain, Rapid Heart Rate, Slow Heart Rate, Syncope, Other - Respiratory Respiratory: absent: As Per HPI, Cough, Dyspnea, Hemoptysis, Dyspnea on Exertion , Wheezing, Snoring, Stridor, Pain on Inspiration, Chest Congestion, Excessive Mucous Production, Change in Mucous Color, Pain with Coughing, Other - Gastrointestinal Gastrointestinal: absent: As Per HPI, Abdominal Pain, Belching, Bloating, Change in Bowel Habits, Change in Stool Character, Coffee Ground Emesis, Constipation, Cramping, Diarrhea, Dyspepsia, Dysphagia, Early Satiety, Excessive Flatus, Fecal Incontinence, Heartburn, Hematemesis, Hematochezia, Loose Stools, Melena, Nausea, Odynophagia, Temesmus, Vomiting, Other - Genitourinary Genitourinary: absent: As Per HPI, Change in Urinary Stream, Difficulty Urinating, Dysuria, Flank Pain, Hematuria, Pyuria, Nocturia, Urinary Incontinence, Urinary Frequency, Urinary Hesitance, Urinary Urgency, Voiding Freq/Small Amts, Freq UTI, Hx Renal/Bladder Calculi, Hx /Renal Surgery, Bladder Distension, Other - Musculoskeletal Musculoskeletal: absent: As Per HPI, Abnormal Gait, Arthralgias, Atrophy, Back Pain, Deformity, Joint Swelling, Limited Range of Motion, Loss of Height, Muscle Cramps, Muscle Weakness, Myalgias, Neck Pain, Numbness, Radiating Pain into Limb, Stiffness, Tingling, Other - Integumentary Integumentary: absent: As Per HPI, Acne, Alopecia, Bleeding Lesions, Change in Hair, Change in Nails, Change in Pigmentation, Changing Lesions, Dry Skin, Erythema, Furuncle, Hirsutism, Lesions, New Lesions, Non-Healing Lesions, Photosensitivity, Pruritus, Rash, Skin Pain, Skin Ulcer, Sores, Striae, Swelling , Unusual Bruising, Wounds, Jaundice, Other - Neurological Neurological: absent: As Per HPI, Abnormal Gait, Abnormal Hearing, Abnormal Movements, Abnormal Speech, Behavioral Changes, Burning Sensations, Confusion, Convulsions, Disequilibrium, Dizziness, Numbness, Focal Weakness, Frequent Falls , Headaches, Lack of Coordination, Loss of Vision, Memory Loss, Paresthesias, Radicular Pain, Restless Legs, Sensory Deficit, Syncope, Tingling, Tremor, Vertigo, Weakness, Other Visual Disturbances, Other - Psychiatric Psychiatric: absent: As Per HPI, Abnormal Sleep Pattern, Anhedonia, Anxiety, Auditory Hallucinations, Behavioral Changes, Change in Appetite, Change in Libido, Confusion, Depression, Difficulty Concentrating, Hallucinations, Homicidal Ideation, Hopelessness, Irritability, Memory Loss, Mood Swings, Panic Attacks, Paranoia, Suicidal Ideation, Visual Hallucinations, Tactile Hallucinations, Other - Endocrine Endocrine: absent: As Per HPI, Change in Body Appearance, Change in Libido, Cold Intolorance, Deepening of Voice, Excessive Sweating, Fatigue, Flushing, Heat Intolorance, Increase in Ring/Shoe/Hat Size, Palpitations, Polydipsia, Polyphagia, Polyuria, Other - Hematologic/Lymphatic Hematologic: absent: As Per HPI, Easy Bleeding, Easy Bruising, Lymphadenopathy, Other Past Patient History - Past Medical History & Family History Past Medical History?: Yes - Past Social History Smoking Status: Heavy Smoker > 10 Cigarettes Daily - CARDIAC Hx Hypercholesterolemia: Yes Hx Hypertension: Yes - PULMONARY Hx Respiratory Disorders: No - NEUROLOGICAL Hx Neurological Disorder: No - HEENT Hx HEENT Problems: No - RENAL Hx Chronic Kidney Disease: No - ENDOCRINE/METABOLIC Hx Endocrine Disorders: No - HEMATOLOGICAL/ONCOLOGICAL Hx Blood Disorders: No - INTEGUMENTARY Hx Dermatological Problems: No - MUSCULOSKELETAL/RHEUMATOLOGICAL Hx Musculoskeletal Disorders: Yes - GASTROINTESTINAL Hx Gastrointestinal Disorders: Yes Hx Gastroesophageal Reflux: Yes Hx Hemorrhoids: Yes - GENITOURINARY/GYNECOLOGICAL Hx Genitourinary Disorders: Yes Hx Prostate Cancer: Yes Hx Prostate Problems: Yes - PSYCHIATRIC Hx Anxiety: Yes Hx Substance Use: No - SURGICAL HISTORY Hx Surgeries: Yes Hx Herniorrhaphy: Yes Hx Orthopedic Surgery: Yes (LT WRIST SX X2) Other/Comment: PROSTATE BX - ANESTHESIA Hx Anesthesia: Yes Hx Anesthesia Reactions: No Hx Malignant Hyperthermia: No Meds Allergies/Adverse Reactions: Allergies Allergy/AdvReac Type Severity Reaction Status Date / Time No Known Allergies Allergy Verified 09/10/17 16:29 - Medications Medications: Current Medications Acetaminophen (Tylenol 325mg Tab) 650 mg PO Q6 PRN PRN Reason: Pain, moderate (4-7) Ascorbic Acid (Vitamin C 500 Mg Tab) 500 mg PO DAILY [facility] Aspirin (Ecotrin) 81 mg PO DAILY [facility] Escitalopram Oxalate (Lexapro) 10 mg PO DAILY [facility] Famotidine (Pepcid) 20 mg PO DAILY [facility] Gabapentin (Neurontin) 100 mg PO DAILY [facility] Heparin Sodium (Porcine) (Heparin) 5,000 units SC Q8 [facility] Ceftriaxone Sodium 1 gm/ (Sodium Chloride) 100 mls @ 100 mls/hr IVPB DAILY [facility] PRN Reason: Protocol Azithromycin 500 mg/ Sodium (Chloride) 250 mls @ 250 mls/hr IVPB DAILY [facility] PRN Reason: Protocol Sodium Chloride (Sodium Chloride 0.9%) 1,000 mls @ 125 mls/hr IV .Q8H [facility] Last Admin: 11/15/17 19:28 Dose: 125 mls/hr Mirtazapine (Remeron) 7.5 mg PO HS [facility] Multivitamins (Hexavitamin) 1 tab PO DAILY [facility] Saccharomyces Boulardii (Florastor) 250 mg PO Q12 [facility] Trazodone HCl (Desyrel) 50 mg PO HS [facility] Physical Exam - Constitutional Appears: Non-toxic - Head Exam Head Exam: NORMAL INSPECTION - Eye Exam Eye Exam: Normal appearance - ENT Exam ENT Exam: Mucous Membranes Moist - Neck Exam Neck exam: Positive for: Full Rom - Respiratory Exam Respiratory Exam: NORMAL BREATHING PATTERN - Cardiovascular Exam Cardiovascular Exam: REGULAR RHYTHM - GI/Abdominal Exam GI & Abdominal Exam: Normal Bowel Sounds - Rectal Exam Rectal Exam: Deferred - Extremities Exam Extremities exam: Negative for: pedal edema - Back Exam Back exam: NORMAL INSPECTION - Neurological Exam Neurological exam: Alert, Oriented x3 - Psychiatric Exam Psychiatric exam: Normal Affect - Skin Skin Exam: Normal Color Results - Vital Signs Recent Vital Signs: Last Vital Signs Temp 98.6 F 11/15/17 18:50 Pulse 76 11/15/17 18:50 Resp 18 11/15/17 18:50 BP 99/66 L 11/15/17 18:50 Pulse Ox 96 11/15/17 15:28 - Labs Result Diagrams: 11/15/17 13:03 11/15/17 17:16 Labs: Laboratory Results - last 24 hr 11/15/17 11/15/17 11/15/17 13:03 13:03 13:24 WBC 10.3 RBC 4.48 Hgb 13.7 Hct 39.5 MCV 88.1 D MCH 30.6 MCHC 34.7 RDW 14.1 Plt Count 233 MPV 7.5 Neut % (Auto) 43.2 L Lymph % (Auto) 47.9 H [place] % (Auto) 6.4 Eos % (Auto) 2.0 Baso % (Auto) 0.5 Neut # (Auto) 4.4 Lymph # (Auto) 4.9 H [place] # (Auto) 0.7 Eos # (Auto) 0.2 Baso # (Auto) 0.1 D-Dimer, Quantitative pO2 47 VBG pH 7.41 VBG pCO2 45 VBG HCO3 27.0 VBG Total CO2 29.9 H VBG O2 Sat (Calc) 87.2 H VBG Base Excess 3.2 H VBG Potassium 3.6 Glucose 93 Lactate 1.1 Sodium 142 139.0 Potassium 3.9 Chloride 101 105.0 Carbon Dioxide 28 Anion Gap 17 BUN 34 H Creatinine 3.2 H Est GFR ( Amer) 23 Est GFR (Non-Af Amer) 19 Random Glucose 111 H Calcium 9.5 Total Bilirubin 0.3 AST 26 ALT 28 Alkaline Phosphatase 58 Total Creatine Kinase 155 Troponin I Total Protein 7.3 Albumin 4.7 Globulin 2.7 Albumin/Globulin Ratio 1.7 Procalcitonin Venous Blood Potassium 3.6 Urine Color Urine Clarity Urine pH Ur Specific [place] Urine Protein Urine Glucose (UA) Urine Ketones Urine Blood Urine Nitrate Urine Bilirubin Urine Urobilinogen Ur Leukocyte Esterase Urine WBC (Auto) Urine RBC (Auto) Ur Squamous Epith Cells Urine Bacteria Hyaline Casts Urine Opiates Screen Urine Methadone Screen Ur Barbiturates Screen Ur Phencyclidine Scrn Ur Amphetamines Screen U Benzodiazepines Scrn U Oth Cocaine Metabols U Cannabinoids Screen 11/15/17 11/15/17 11/15/17 14:20 15:30 15:30 WBC RBC Hgb Hct MCV MCH MCHC RDW Plt Count MPV Neut % (Auto) Lymph % (Auto) [place] % (Auto) Eos % (Auto) Baso % (Auto) Neut # (Auto) Lymph # (Auto) [place] # (Auto) Eos # (Auto) Baso # (Auto) D-Dimer, Quantitative < 200 pO2 VBG pH VBG pCO2 VBG HCO3 VBG Total CO2 VBG O2 Sat (Calc) VBG Base Excess VBG Potassium Glucose Lactate Sodium Potassium Chloride Carbon Dioxide Anion Gap BUN Creatinine Est GFR ( Amer) Est GFR (Non-Af Amer) Random Glucose Calcium Total Bilirubin AST ALT Alkaline Phosphatase Total Creatine Kinase Troponin I Total Protein Albumin Globulin Albumin/Globulin Ratio Procalcitonin 0.05 L Venous Blood Potassium Urine Color María Elena Urine Clarity Hazy Urine pH 5.0 Ur Specific [place] 1.020 Urine Protein Negative Urine Glucose (UA) Normal Urine Ketones Negative Urine Blood Negative Urine Nitrate Negative Urine Bilirubin Negative Urine Urobilinogen 2.0 Ur Leukocyte Esterase Neg Urine WBC (Auto) 3 Urine RBC (Auto) < 1 Ur Squamous Epith Cells 2 Urine Bacteria Rare Hyaline Casts >20 H Urine Opiates Screen Urine Methadone Screen Ur Barbiturates Screen Ur Phencyclidine Scrn Ur Amphetamines Screen U Benzodiazepines Scrn U Oth Cocaine Metabols U Cannabinoids Screen 11/15/17 11/15/17 11/15/17 15:30 17:16 18:30 WBC RBC Hgb Hct MCV MCH MCHC RDW Plt Count MPV Neut % (Auto) Lymph % (Auto) [place] % (Auto) Eos % (Auto) Baso % (Auto) Neut # (Auto) Lymph # (Auto) [place] # (Auto) Eos # (Auto) Baso # (Auto) D-Dimer, Quantitative pO2 VBG pH VBG pCO2 VBG HCO3 VBG Total CO2 VBG O2 Sat (Calc) VBG Base Excess VBG Potassium Glucose Lactate Sodium 145 Potassium 3.7 Chloride 111 H Carbon Dioxide 24 Anion Gap 14 BUN 29 H Creatinine 2.2 H Est GFR ( Amer) 36 Est GFR (Non-Af Amer) 30 Random Glucose 106 Calcium 7.8 L Total Bilirubin AST ALT Alkaline Phosphatase Total Creatine Kinase Troponin I < 0.0120 Total Protein Albumin Globulin Albumin/Globulin Ratio Procalcitonin Venous Blood Potassium Urine Color Urine Clarity Urine pH Ur Specific [place] Urine Protein Urine Glucose (UA) Urine Ketones Urine Blood Urine Nitrate Urine Bilirubin Urine Urobilinogen Ur Leukocyte Esterase Urine WBC (Auto) Urine RBC (Auto) Ur Squamous Epith Cells Urine Bacteria Hyaline Casts Urine Opiates Screen Negative Urine Methadone Screen Negative Ur Barbiturates Screen Negative Ur Phencyclidine Scrn Negative Ur Amphetamines Screen Negative U Benzodiazepines Scrn Positive U Oth Cocaine Metabols Negative U Cannabinoids Screen Negative - EKG Data EKG Interpreted by: Myself Assessment & Plan (1) Left anterior fascicular block Assessment and Plan: recommend echocardiogram Status: Acute (2) Hypotension Assessment and Plan: unclear etiology. check echo. TSH. cortisol level Status: Acute
[2017-11-15] MEDS: Saccharomyces Boulardi 250 mg Cap PO SCH (22:34)
[2017-11-15] MEDS ORDERED: Sodium Chloride 0.9% 1,000 ML IV SCH (23:45)
[2017-11-16] MEDS: Sodium Chloride 0.9% 1,000 ML IV SCH ×3 (03:00→18:31)
--- NOTE | 2017-11-16 07:56 | CP.PCM.PN ---
<Jaswant Garcia M - Last Filed: 11/16/17 14:50> Subjective - Date & Time of Evaluation Date of Evaluation: 11/16/17 Time of Evaluation: 07:10 - Subjective Subjective: PGY-1 Medicine Progress Note for Dr. Sumner Patient was seen and examined today at bedside in no acute distress. No overnight events reported. Patient reports he has been ambulating with no difficulty or dizziness. Patient reports his last bowel movement was yesterday and has had no difficulty urinating Patient states he feels fine and denies denies any cough, headache, dizziness, chest pain or shortness of breath. Objective - Vital Signs/Intake and Output Vital Signs (last 24 hours): Temp Pulse Resp BP Pulse Ox 97.3 F L 77 20 135/85 97 11/15/17 23:50 11/16/17 01:00 11/15/17 23:50 11/15/17 23:50 11/15/17 23:50 Intake and Output: 11/16/17 11/16/17 06:59 18:59 Intake Total 1325 Balance 1325 - Medications Medications: Current Medications Acetaminophen (Tylenol 325mg Tab) 650 mg PO Q6 PRN PRN Reason: Pain, moderate (4-7) Ascorbic Acid (Vitamin C 500 Mg Tab) 500 mg PO DAILY [facility] Aspirin (Ecotrin) 81 mg PO DAILY [facility] Buprenorphine HCl (Subutex) 8 mg SL BID [facility] Escitalopram Oxalate (Lexapro) 10 mg PO DAILY [facility] Famotidine (Pepcid) 20 mg PO DAILY [facility] Heparin Sodium (Porcine) (Heparin) 5,000 units SC Q8 [facility] Last Admin: 11/16/17 06:20 Dose: 5,000 units Ceftriaxone Sodium 1 gm/ (Sodium Chloride) 100 mls @ 100 mls/hr IVPB DAILY [facility] PRN Reason: Protocol Azithromycin 500 mg/ Sodium (Chloride) 250 mls @ 250 mls/hr IVPB DAILY [facility] PRN Reason: Protocol Sodium Chloride (Sodium Chloride 0.9%) 1,000 mls @ 125 mls/hr IV .Q8H [facility] Last Admin: 11/16/17 06:21 Dose: 125 mls/hr Mirtazapine (Remeron) 7.5 mg PO HS [facility] Last Admin: 11/15/17 22:34 Dose: 7.5 mg Multivitamins (Hexavitamin) 1 tab PO DAILY [facility] Nicotine (Nicoderm Cq) 1 patch TD DAILY [facility] Saccharomyces Boulardii (Florastor) 250 mg PO Q12 [facility] Last Admin: 11/15/17 22:34 Dose: 250 mg Trazodone HCl (Desyrel) 50 mg PO HS [facility] Last Admin: 11/15/17 22:34 Dose: 50 mg - Labs Labs: 11/15/17 13:03 11/15/17 17:16 - Constitutional Appears: Non-toxic, No Acute Distress - Head Exam Head Exam: ATRAUMATIC, NORMAL INSPECTION, NORMOCEPHALIC - Eye Exam Eye Exam: EOMI, Normal appearance - ENT Exam ENT Exam: Mucous Membranes Moist - Respiratory Exam Respiratory Exam: Decreased Breath Sounds, Rales. absent: Rhonchi, Wheezes Additional comments: L > R b/l lower lobes, productive cough - Cardiovascular Exam Cardiovascular Exam: +S1, +S2. absent: Irregular Rhythm, Murmur - GI/Abdominal Exam GI & Abdominal Exam: Soft, Normal Bowel Sounds. absent: Guarding, Rigid, Tenderness - Extremities Exam Extremities Exam: Full ROM, Pedal Edema. absent: Calf Tenderness Additional comments: 1+ pitting edema, patient states occurring following use of gabapentitn - Neurological Exam Neurological Exam: Alert, Awake, Oriented x3 - Psychiatric Exam Psychiatric exam: Normal Affect, Normal Mood - Skin Skin Exam: Dry, Intact, Normal Color, Warm Assessment and Plan - Assessment and Plan (Free Text) Assessment: Assessment: 72 yo M with PMHx of HTN, HLD, GERD, prostate cancer s/p radiation and spinal degenerative disease with disc herniation who is admitted for hypotension and pneumonia diagnosed in the ED. 1) Pneumonia vs Pleural effusions - 2/2 likely pneumonia Current Management: - pt has cough, f/u CT, continue Abx Azithromycin 500mg& rocephin 1gm daily, F/ u blood/urine cultures Imaging: - Initial CXR 11/15: Patchy opacities at left lung base. Correlate clinically for pneumonia. Cardiomegaly. Atherosclerotic calcification of the aorta - F/u CXR 11/16: looks like possible pleural effusion/ pulmonary congestion vs pneumonia, will wait for official read - F/u CT chest Medications: - Rocephin 1 gm IV daily - Azithromycin 500 mg IV daily - Duoneb PRN q6 Labs: - Blood cultures 11/15/17: pending - Urine cultures 11/15/17: pending - Legionella: negative - Mycoplasma: negative - Procalcitonin: 0.05 - TSH 0.17, Free T4 0.91 - likely due to infxn 2) Acute renal failure - on admission BUN/ Cr 34/3.2 - > BUN/Cr at 20/1.3 (11/16) - Hold home meds: lisinopril/ HCTZ 20/25mg - F/u nephrology recs, Dr. Chung recs - continue NS @ 100cc/hr 3) Abnormal EKG - ECG: left anterior fasicular block; similar to previous on 03/2017 - F/u Cardio (Dr. Sal) recs - F/u echo - echo from 03/2017 - EF 65- 70%, LV systolic function - normal, LV diastolic function - normal 4) Hypotension - Resolved - on admission SBP in 80s, held home BP meds (atenolol 50 mg PO daily & lisinopril/ HCTZ 20/25mg) - CT head w/o contrast: chronic microvascular changes - Urine tox screen: negative except for benzodiazepines - > 3L NS given, now stable in 140's/70's 5) Bilateral lower extremity edema - like 2/2 due to previous gabapentin use - due to previous Ca history, will f/u venous doppler to r/o DVTs 6) History of HTN - lisinopril/ HCTZ 20/25mg held 2/2 to hypotension & ANETTE 7) history of recreational drug abuse, chronic back pain - Hx of heroin abuse (stopped in 2001) & Percocet and Oxycodone (stopped in ) - Cleared by Psych (Dr. Kincaid) who recommended continuation of: - Suboxone 8 mg SL bid - Trazodone 50 mg po HS - Lexapro 10 mg po daily - Mirtazapine 7.5 mg po daily (renal adjusted) - will consider full dose pending BUN/ Cr trend 8) Hx of gastritis - Florastor 250 mg po q12 - Pepcid 20 mg po daily 9) Hx of Prostate CA - Bladder scan Q shift - 11/15/17: Mild caliectasis of left kidney. Bladder prevoid volume 145 cc. Post void volume 12 cc. Bilateral ureteral jets identified - BPH medication was held 2/2 to hypotension. Consider restarting home medication tomorrow if bp remains stable 10) Smoking history - Nicotine 21 mg patch 11) PPx - DVT ppx: Heparin 5000 mg SC q8 - GI ppx: Pepcid 20 mg po daily - Activity: fall risk, bedrest, bathroom comode - Heart healthy diet <Toshia Sumner V - Last Filed: 11/19/17 19:53> Objective - Vital Signs/Intake and Output Vital Signs (last 24 hours): Temp Pulse Resp BP Pulse Ox 98.2 F 73 20 138/82 92 L 11/19/17 07:00 11/19/17 07:00 11/19/17 07:00 11/19/17 07:00 11/19/17 07:00 - Labs Labs: 11/19/17 08:27 11/19/17 08:27 Assessment and Plan (1) Pneumonia Status: Acute (2) Acute renal insufficiency Status: Acute (3) Hypotension Status: Resolved (4) Left anterior fascicular block Status: Chronic (5) Prostate cancer Status: Resolved Attending/Attestation - Attestation I have personally seen and examined this patient.: Yes I have fully participated in the care of the patient.: Yes I have reviewed all pertinent clinical information, including history, physical exam and plan: Yes Notes (Text): this is late computer entry for for 11/16/17. Patient seen, examined, and case discussed with medical records auditor. Patient seen this morning with the resident. Patient reports cough, denies shortness of breathe. Patient is on IV fluids. Renal function is recovering. Patient to have CT Chest w/o contrast given new chest xray shows pneumonia and obscures the left heart border. Patient is pending echocardiogram given abnormal EKG. We will f/u blood and urine cultures. Procalcitonin is low. Patient to continue IV abx. Assessment/Plan 1) Pneumonia Assessment/Plan * Rocephin 1 gram IV q daily * Azithromycin 500mg IV q daily Imaging: - Initial CXR 11/15: Patchy opacities at left lung base. Correlate clinically for pneumonia. Cardiomegaly. Atherosclerotic calcification of the aorta - F/u CXR 11/16: looks like possible pleural effusion/ pulmonary congestion vs pneumonia, will wait for official read - F/u CT chest w/o contrast Medications: - Rocephin 1 gm IV daily - Azithromycin 500 mg IV daily - Duoneb PRN q6 Labs: - Blood cultures 11/15/17: pending - Urine cultures 11/15/17: pending - Legionella: negative - Mycoplasma: negative - Procalcitonin: 0.05 - TSH 0.17, Free T4 0.91 - likely due to infxn 2) Acute renal failure Assessment/Plan * on admission BUN/ Cr 34/3.2 - > BUN/Cr at 20/1.3 (11/16) * Hold home meds: lisinopril/ HCTZ 20/25mg * F/u nephrology recs, Dr. Chung recs * continue NS @ 100cc/hr 3) Abnormal EKG Assessment/Plan * ECG: left anterior fasicular block; similar to previous on 03/2017 * F/u Cardio (Dr. Sal) recs * F/u echo * echo from 03/2017 - EF 65- 70%, LV systolic function - normal, LV diastolic function - normal 4) Hypotension - Resolved Assessment/Plan * on admission SBP in 80s, held home BP meds (atenolol 50 mg PO daily & lisinopril/ HCTZ 20/25mg) * CT head w/o contrast: chronic microvascular changes * Urine tox screen: negative except for benzodiazepines * > 3L NS given in the ED, and is on maintenance fluids, now stable in 140's/70' s 5) Bilateral lower extremity edema Assessment/Plan * like 2/2 due to previous gabapentin use * due to previous Ca history, will f/u venous doppler to r/o DVTs 6) History of HTN Assessment/Plan * lisinopril/ HCTZ 20/25mg held 2/2 to hypotension & ANETTE * patient is on IV fluids * monitor vital signs 7) history of recreational drug abuse, chronic back pain Assessment/Plan * Hx of heroin abuse (stopped in 2001) & Percocet and Oxycodone (stopped in ) * Cleared by Psych (Dr. Kincaid) who recommended continuation of: * Suboxone 8 mg SL bid * Trazodone 50 mg po HS * Lexapro 10 mg po daily * Mirtazapine 7.5 mg po daily (renal adjusted) - will consider returning back to 15mg PO daily when renal function is recovered 8) Hx of gastritis Assessment/Plan * Florastor 250 mg po q12 * Pepcid 20 mg po daily 9) Hx of Prostate CA Assessment/Plan * Bladder scan Q shift * 11/15/17: Mild caliectasis of left kidney. Bladder prevoid volume 145 cc. Post void volume 12 cc. Bilateral ureteral jets identified * BPH medication was held 2/2 to hypotension. Consider restarting home medication tomorrow if bp remains stable 10) Smoking history * Nicotine 21 mg patch daily * Counselled to stop smoking 11) PPx * DVT ppx: Heparin 5000 mg SC q8 * GI ppx: Pepcid 20 mg po daily * Activity: fall risk, bedrest, bathroom comode * Heart healthy diet
[2017-11-16 08:12] LABS: CREATININE, RANDOM URINE 79.6 mg/dL
[2017-11-16 08:29] LABS: BASO # 0.1 K/uL (0.0-0.2); BASO % 0.7 % (0.0-2.0); EOS # 0.3 K/uL (0.0-0.7); EOS % 2.7 % (0.0-4.0); HEMOGLOBIN 13.2 g/dL (12.0-18.0); LYMPH # 4.5 K/uL (1.0-4.3); LYMPH % 49.5 % (20.0-40.0); MEAN CELL VOLUME 88.9 fL (80.0-94.0); MEAN CORPUSCULAR HEMOGLOBIN 30.4 pg (27.0-31.0); MEAN CORPUSCULAR HGB CONC 34.2 g/dL (33.0-37.0); MEAN PLATELET VOLUME 7.5 fL (7.2-11.7); MONO # 0.5 K/uL (0.0-0.8); MONO % 5.5 % (0.0-10.0); NEUT # 3.8 K/uL (1.8-7.0); NEUT % 41.6 % (50.0-75.0); NRBC % 0.9 % (0.0-2.0); RBC 4.34 Mil/uL (4.40-5.90); RED CELL DISTRIBUTION WIDTH 14.2 % (11.5-14.5); WHITE BLOOD COUNT 9.2 K/uL (4.8-10.8)
[2017-11-16 08:55] LABS: ALB/GLOB RATIO 1.5 (1.0-2.1); ALBUMIN 3.8 g/dL (3.5-5.0); ALT/SGPT 20 U/L (21-72); AST/SGOT 25 U/L (17-59); BLOOD UREA NITROGEN 20 mg/dL (9-20); CALCIUM 8.8 mg/dl (8.6-10.4); GFR NON-AFRICAN AMERICAN 54; HDL CHOLESTEROL 26 mg/dL (30-70)
[2017-11-16 08:57] LABS: LDL CHOLESTEROL 66 mg/dL (0-129)
[2017-11-16] MEDS: Azithromycin 500 MG in Sodium Chloride 0.9% 250 ML IVPB SCH (09:00)
--- NOTE | 2017-11-16 09:01 | CT ---
Date of service: 11/15/2017 PROCEDURE: CT HEAD WITHOUT CONTRAST. HISTORY: hypotension and fatigue COMPARISON: None available. TECHNIQUE: Axial computed tomography images were obtained through the head/brain without intravenous contrast. Radiation dose: Total exam DLP = 1142 mGy-cm. This CT exam was performed using one or more of the following dose reduction techniques: Automated exposure control, adjustment of the mA and/or kV according to patient size, and/or use of iterative reconstruction technique. FINDINGS: HEMORRHAGE: No intracranial hemorrhage. BRAIN: Mild to moderate atrophy. Scattered focal lucencies in the subcortical and periventricular white matter suggestive for chronic microvascular ischemic change. Punctate bilateral basal ganglia calcifications. VENTRICLES: Unremarkable. No hydrocephalus. CALVARIUM: Unremarkable. PARANASAL SINUSES: Scattered mucosal thickening of the paranasal sinuses. MASTOID AIR CELLS: Partial opacification of the mastoid air cells. OTHER FINDINGS: Mild atherosclerotic disease of the intracranial arteries. IMPRESSION: Chronic microvascular ischemic changes. If symptoms persist, consider correlation with MRI. These findings were preliminarily reported at 8:15 p.m. on 11/15/[address] Cam Martinez from [facility].
--- NOTE | 2017-11-16 09:16 | CON ---
DATE: 11/15/2017 NEPHROLOGY CONSULTATION HISTORY OF PRESENT ILLNESS: The patient is a 72-year-old male with past medical history of hypertension, hyperlipidemia, GERD, spinal degenerative disease with disk herniation, prostate cancer, status post radiation, presented with complaint of low blood pressure. Nephrology being consulted for acute kidney injury. The patient reports that he was scheduled to receive spinal epidural injection tomorrow with Pain Management doctor. The patient checked his blood pressure prior to procedure today and found to be 50s/40s; said that blood pressure usually runs in 130/80s. The patient reports taking his usual dose of medication. His only symptom he says is that he has been feeling sluggish over the last few days. Otherwise, denies any significant increase in lightheadedness on rising from lying position. Denies any nausea, vomiting, or diarrhea. Denies any other acute illnesses. The patient denies doubling or increasing the dose of his blood pressure medications. The patient denies any chest pain or palpitation. Denies any increased leg swelling. PAST MEDICAL HISTORY: As above. SOCIAL HISTORY: Smokes half a pack a day. FAMILY HISTORY: The patient feels he is adopted. Does not know his biologic family. REVIEW OF SYSTEMS: CONSTITUTIONAL: Denies any fevers, chills, or night sweats. HEENT: Vision is stable. Denies any sore throat or sinus pain. RESPIRATORY: Denies any dyspnea, or difficulty wheezing. CARDIOVASCULAR: As per HPI. GASTROINTESTINAL: As per HPI. GENITOURINARY: No difficulty urinating. Good urinary stream. No dysuria. MUSCULOSKELETAL: Chronic back pain. NEUROLOGIC: Denies any dizziness or headaches. PHYSICAL EXAMINATION: VITAL SIGNS: On presentation, blood pressure 84/46, current blood pressure 112/73, heart rate 93, respirations 20, temperature 97.4, O2 saturations 94% on room air. GENERAL: In no acute distress. Conversing coherently in full sentences. HEENT: Moist mucous membranes. Nonicteric. NECK: No cervical lymphadenopathy. Mildly elevated JVD. RESPIRATORY: Lungs are clear to auscultation bilaterally. No rales, no rhonchi, no wheezes. CARDIOVASCULAR: Heart sounds S1 and S2 are normal. No murmurs. No gallops. No rubs. GASTROINTESTINAL: Abdomen is soft, nontender, and nondistended. GENITOURINARY: No bladder distention. EXTREMITIES: 1+ bilateral lower leg edema. SKIN: Warm. No cyanosis. NEUROLOGIC: No tremor of outstretched hands. PSYCHIATRIC: Normal mood. Normal affect. LABORATORY DATA: CBC: WBC 7.8, hemoglobin 13.7, hematocrit 39.5, platelets 233. Chemistry panel: Sodium 145, potassium 3.7, chloride 111, bicarbonate 24, BUN 29, creatinine 2.2 (3.2 earlier). Glucose 106, calcium 7.8. UA: Negative protein, negative blood, negative leukocyte esterase, greater than 25 red blood cells per low-powered field. Chest x-ray was reviewed, reporting patchy opacities in left lung base. ASSESSMENT AND PLAN: 1. Acute kidney injury, appears to be severe in etiology with renal function improving on volume; stable electrolyte status; no volume overload on exam. We will be continuing normal saline at 125 mL/ hour. Agree with holding diuretics. Avoid non-steroidal antiinflammatory drugs as above. Limit renal artery regulation. 2. Hypotension, etiology is clear. The patient received Glucagon to revert beta-madyson effect in emergency department; currently blood pressure medications on hold. To continue to hold for now. Thank you for this referral. We will be following up closely. Willy Chung MD
[2017-11-16] MEDS: Buprenorphine Hydrochloride 8 mg SL SCH ×2 (10:55→18:31)
[2017-11-16] MEDS: Saccharomyces Boulardi 250 mg Cap PO SCH ×2 (10:57→23:01)
[2017-11-16] MEDS: Multiple Vitamins Tab PO SCH (10:57)
--- NOTE | 2017-11-16 11:34 | US ---
Date of service: 11/15/2017 PROCEDURE: Ultrasound of the kidneys. Ultrasound of the urinary bladder. HISTORY: acute renal failure COMPARISON: CT chest, abdomen, pelvis without contrast performed 03/20/17 TECHNIQUE: Sonogram of the kidneys. Sonogram of the urinary bladder. FINDINGS: RIGHT KIDNEY: Measures: 13.0 x 6.3 x 6.5 cm. 5.8 x 4.8 x 4.6 cm upper pole and 4.5 x 3.5 x 4.5 cm lower pole renal cyst with tiny associated/adjacent calcification. No obstructing calculus or hydronephrosis. LEFT KIDNEY: Measures: 12.1 x 6.3 x 5.5 cm. 0.7 x 0.7 x 0.8 cm lower pole renal cyst. Mild caliectasis of the left renal upper pole. No obstructing calculus. OTHER FINDINGS: Urinary bladder: Prevoid volume 145 cc. Postvoid volume 12 cc. Bilateral ureteral jets were identified. The prostate gland measures approximately 3.8 x 3.4 x 3.7 cm. IMPRESSION: Mild caliectasis of the left kidney. Additional findings as above. Preliminary impression was provided by virtual radiologic.
--- NOTE | 2017-11-16 11:45 | PCM.PSYCH ---
Initial Psychiatric Evaluation - Initial Psychiatric Evaluation Type of Admission: Voluntary Legal Status: Capacity Chief Complaint (in patient's own words): "I was dehydrated" History of Present Illness and Precipitating Events: The pt is seen, chart reviewed, case discussed with staff He is known to me from inpatient and outpatient care Consultation was asked for his psych hx and being on suboxone Patient is a 72 year old male currently experiencing anxiety. He is , no children, and lives with his . Retired, was in the long ago. He had low BP and admitted and his kidney functions were impaired likely due to dehydration. He reports anxiety but denies other sxs He has been stable with current meds and treatment Past psych hx: He states started using heroin "around 1966 until I quit at the [facility] in 2001." He has been clean since 2001. He states during the same time of his heroin use disorder he occasionally used pills and cocaine. He denies current alcohol usage. Smokes 1/2 ppd cigarettes. He has been to detox and rehab in the past. He also sometimes over-used his xanax, ie 2-3, mostly for sleep and anxiety. PMH: Chronic back pain, HTN, HLD, Prostate CA in remission Past Psych: Anxiety, depression, PTSD Family Psych Hx: Patient was adopted and has no knowledge of his biological family Current Medications: Active Medications Generic Name Dose Route Start Last Admin Trade Name Freq PRN Reason Stop Dose Admin Acetaminophen 650 mg 11/15/17 15:49 Tylenol 325mg Tab PO Q6 PRN Pain, moderate (4-7) Ascorbic Acid 500 mg 11/16/17 10:11/16/17 11:00 Vitamin C 500 Mg Tab PO 500 mg DAILY VINCE Administration Aspirin 81 mg 11/16/17 10:11/16/17 10:56 Ecotrin PO 81 mg DAILY VINCE Administration Buprenorphine HCl 8 mg 11/16/17 10:11/16/17 10:55 Subutex SL 8 mg BID VINCE Administration Escitalopram Oxalate 10 mg 11/16/17 10:00 11/16/17 10:56 Lexapro PO 10 mg DAILY VINCE Administration Famotidine 20 mg 11/16/17 10:00 11/16/17 10:56 Pepcid PO 20 mg DAILY VINCE Administration Heparin Sodium (Porcine) 5,000 units 11/15/17 22:00 11/16/17 06:20 Heparin SC 5,000 units Q8 VINCE Administration Ceftriaxone Sodium 1 gm/ 100 mls @ 100 mls/hr 11/16/17 10:00 11/16/17 10:55 Sodium Chloride IVPB 100 mls/hr DAILY VINCE Administration Protocol Azithromycin 500 mg/ Sodium 250 mls @ 250 mls/hr 11/16/17 10:00 Chloride IVPB DAILY VINCE Protocol Mirtazapine 7.5 mg 11/15/17 22:00 11/15/17 22:34 Remeron PO 7.5 mg HS VINCE Administration Multivitamins 1 tab 11/16/17 10:00 11/16/17 10:57 Hexavitamin PO 1 tab DAILY VINCE Administration Nicotine 1 patch 11/16/17 10:00 11/16/17 10:58 Nicoderm Cq TD 1 patch DAILY VINCE Administration Saccharomyces Boulardii 250 mg 11/15/17 22:00 11/16/17 10:57 Florastor PO 250 mg Q12 VINCE Administration Trazodone HCl 50 mg 11/15/17 22:00 11/15/17 22:34 Desyrel PO 50 mg HS VNICE Administration Past Psychiatric History - Past Psychiatric History Previous Treatment History: Intensive Outpatient Pertinent Medical Hx (Current Medical&Sleep Prob, Allergies): Allergies Allergy/AdvReac Type Severity Reaction Status Date / Time No Known Allergies Allergy Verified 09/10/17 16:29 ALPRAZolam [Xanax] 1 mg PO DAILY PRN 04/14/17 Aspirin 81 mg PO DAILY 04/14/17 Atenolol [Tenormin] 50 mg PO DAILY 04/14/17 Clonazepam [Klonopin] 2 mg PO HS 04/14/17 Ibuprofen [Motrin Tab] 800 mg PO TID 04/14/17 Lisinopril/Hydrochlorothiazide [Lisinopril-Hydrochlorothiazide 25 mg-20 mg] 1 tab PO DAILY 04/14/17 Omeprazole 20 mg PO DAILY 04/14/17 Pregabalin [Lyrica] 100 mg PO TID 04/14/17 Silodosin [Rapaflo] 8 mg PO DAILY 04/14/17 Simvastatin 40 mg PO DAILY 04/14/17 Lisinopril [Zestril] 20 mg PO DAILY tab 04/18/17 Pantoprazole [Protonix EC Tab] 20 mg PO DAILY ect 04/18/17 hydroCHLOROthiazide [Hydrodiuril] 25 mg PO DAILY tab 04/18/17 traZODone [Desyrel] 50 mg PO HS PRN #30 tab 04/18/17 Buprenorphine HCl/Naloxone HCl [Suboxone 8 mg-2 mg Sl Film] 1 tab PO BID Review of Systems - Psychiatric Psychiatric: Abnormal Sleep Pattern, Anxiety. absent: Depression, Hallucinations, Homicidal Ideation, Paranoia, Suicidal Ideation Mental Status Examination - Personal Presentation Personal Presentation: Looks stated age - Affect Affect: Broad - Motor Activity Motor Activity: Calm - Reliability in Providing Information Reliability in Providing Information: Good - Speech Speech: Organized - Mood Mood: Anxious - Formal Thought Process Formal Thought Process: No Impairment - Cognitive Functions Orientation: Person, Place, Situation, Time Sensorium: Alert Attention/Concentration: Attentive Estimate of Intelligence: Average Judgement: Intact, as evidence by: Insight regarding need for hospitalization Memory: Recent intact, as evidence by: Ability to recall events of the day, Remote intact, as evidenced by: Abilit to recall sig. life events - Risk Risk: Diminished functioning - Strength & Assets Inventory Strength & Assets Inventory: Family support, Cooperative - Limitations Limitations: Other DSM 5 DX - DSM 5 DSM 5 Diagnosis: Opioid use d/o - severe, in remission, on maintenance Alcohol use d/o - in remission Tobacco use d/o - moderate Depressive d/o - unspecified hx of PTSD - Recommended/Plan of Treatment Treatment Recommendations and Plan of Treatment: Continue subutex, lexapro, remeron DC gabapentin medical mgt Cleared by psych 33 min
--- NOTE | 2017-11-16 14:08 | CP.PCM.PN ---
<Alex Hughes - Last Filed: 11/16/17 14:05> Subjective - Date & Time of Evaluation Date of Evaluation: 11/16/17 Time of Evaluation: 09:45 - Subjective Subjective: Alex Hughes D.O. PGY-3, Internal Medicine Resident, Nephrology Progress Note 72 year old male with a PMH HTN, GERD, HLD, DJD, prostate CA s/p radiation who presented with hypotension. Nephrology consultation was requested for acute renal failure. Patient was seen and examined at bedside. Patient doing much better. States still has a bit of a cough. No acute overnight events. at bedside relates story of how he at times gets depressed and lays around in bed and she was gone for the weekend and patient may have just laid around during the whole weekend without much to eat or drink. Objective - Vital Signs/Intake and Output Vital Signs (last 24 hours): Temp Pulse Resp BP Pulse Ox 98.0 F 70 18 141/77 93 L 11/16/17 07:50 11/16/17 07:50 11/16/17 07:50 11/16/17 07:50 11/16/17 07:50 Intake and Output: 11/16/17 11/16/17 06:59 18:59 Intake Total 1325 Balance 1325 - Medications Medications: Current Medications Acetaminophen (Tylenol 325mg Tab) 650 mg PO Q6 PRN PRN Reason: Pain, moderate (4-7) Albuterol/Ipratropium (Duoneb 3 Mg/0.5 Mg (3 Ml) Ud) 3 ml INH RQ6 [facility]INCE Alprazolam (Xanax) 0.5 mg PO HS [facility] Ascorbic Acid (Vitamin C 500 Mg Tab) 500 mg PO DAILY [facility] Last Admin: 11/16/17 11:00 Dose: 500 mg Aspirin (Ecotrin) 81 mg PO DAILY [facility] Last Admin: 11/16/17 10:56 Dose: 81 mg Buprenorphine HCl (Subutex) 8 mg SL BID [facility] Last Admin: 11/16/17 10:55 Dose: 8 mg Escitalopram Oxalate (Lexapro) 10 mg PO DAILY [facility] Last Admin: 11/16/17 10:56 Dose: 10 mg Famotidine (Pepcid) 20 mg PO DAILY [facility] Last Admin: 11/16/17 10:56 Dose: 20 mg Heparin Sodium (Porcine) (Heparin) 5,000 units SC Q8 [facility] Last Admin: 11/16/17 06:20 Dose: 5,000 units Ceftriaxone Sodium 1 gm/ (Sodium Chloride) 100 mls @ 100 mls/hr IVPB DAILY VINCE PRN Reason: Protocol Last Admin: 11/16/17 10:55 Dose: 100 mls/hr Azithromycin 500 mg/ Sodium (Chloride) 250 mls @ 250 mls/hr IVPB DAILY [facility]INCE PRN Reason: Protocol Mirtazapine (Remeron) 7.5 mg PO HS [facility] Last Admin: 11/15/17 22:34 Dose: 7.5 mg Multivitamins (Hexavitamin) 1 tab PO DAILY [facility] Last Admin: 11/16/17 10:57 Dose: 1 tab Nicotine (Nicoderm Cq) 1 patch TD DAILY [facility] Last Admin: 11/16/17 10:58 Dose: 1 patch Saccharomyces Boulardii (Florastor) 250 mg PO Q12 [facility] Last Admin: 11/16/17 10:57 Dose: 250 mg Trazodone HCl (Desyrel) 50 mg PO HS PRN PRN Reason: Insomnia - Labs Labs: 11/16/17 08:00 11/16/17 08:00 - Constitutional Appears: Non-toxic, No Acute Distress - Head Exam Head Exam: ATRAUMATIC, NORMOCEPHALIC - Eye Exam Eye Exam: EOMI, PERRL. absent: Scleral icterus - ENT Exam ENT Exam: Mucous Membranes Moist, Normal Oropharynx - Neck Exam Neck Exam: absent: Lymphadenopathy, Thyromegaly - Respiratory Exam Respiratory Exam: Rhonchi (mild LLL). absent: Rales, Wheezes - Cardiovascular Exam Cardiovascular Exam: RRR, +S1, +S2. absent: Gallop, Rubs, Murmur - GI/Abdominal Exam GI & Abdominal Exam: Soft, Normal Bowel Sounds. absent: Distended, Tenderness - Extremities Exam Extremities Exam: absent: Pedal Edema, Tenderness - Neurological Exam Neurological Exam: Alert, Awake, Oriented x3 - Psychiatric Exam Psychiatric exam: Normal Affect, Normal Mood - Skin Skin Exam: Dry, Intact, Warm Assessment and Plan (1) Acute renal insufficiency Status: Acute (2) Hypotension Status: Acute (3) Pneumonia Status: Acute (4) Chronic back pain Status: Chronic (5) GERD (gastroesophageal reflux disease) Status: Chronic (6) Hypertension Status: Chronic (7) Prostate cancer Status: Resolved - Assessment and Plan (Free Text) Assessment: 72 year old male with a PMH HTN, GERD, HLD, DJD, prostate CA s/p radiation who presented with hypotension. Nephrology consultation was requested for acute renal failure. Plan: Cr significantly improved since he's been on IVF, will continue NS @ 100ml/hr Agree with continuing to avoid antihypertensives at this time now that his BP has improved Continue to avoid nephrotoxic agents Encouraged ambulation Continue antibiotic therapy per primary team Recheck CMP tomorrow AM Patient was seen and examined and case was discussed at length with attending physician Dr. Chung Thank you for the pleasure of participating in the care of this interesting patient <Willy Chung - Last Filed: 11/17/17 07:07> Objective - Vital Signs/Intake and Output Vital Signs (last 24 hours): Temp Pulse Resp BP Pulse Ox 98.6 F 69 20 162/88 H 93 L 11/16/17 23:50 11/17/17 04:00 11/16/17 23:50 11/16/17 23:50 11/16/17 23:50 Intake and Output: 11/16/17 11/17/17 18:59 06:59 Intake Total 1000 1000 Balance 1000 1000 - Medications Medications: Current Medications Acetaminophen (Tylenol 325mg Tab) 650 mg PO Q6 PRN PRN Reason: Pain, moderate (4-7) Albuterol/Ipratropium (Duoneb 3 Mg/0.5 Mg (3 Ml) Ud) 3 ml INH RQ6 [facility] Last Admin: 11/17/17 01:14 Dose: Not Given Alprazolam (Xanax) 0.5 mg PO HS [facility] Last Admin: 11/16/17 22:59 Dose: 0.5 mg Ascorbic Acid (Vitamin C 500 Mg Tab) 500 mg PO DAILY [facility] Last Admin: 11/16/17 11:00 Dose: 500 mg Aspirin (Ecotrin) 81 mg PO DAILY [facility] Last Admin: 11/16/17 10:56 Dose: 81 mg Buprenorphine HCl (Subutex) 8 mg SL BID [facility] Last Admin: 11/16/17 18:31 Dose: 8 mg Escitalopram Oxalate (Lexapro) 10 mg PO DAILY [facility] Last Admin: 11/16/17 10:56 Dose: 10 mg Famotidine (Pepcid) 20 mg PO DAILY [facility] Last Admin: 11/16/17 10:56 Dose: 20 mg Heparin Sodium (Porcine) (Heparin) 5,000 units SC Q8 [facility] Last Admin: 11/17/17 06:23 Dose: 5,000 units Ceftriaxone Sodium 1 gm/ (Sodium Chloride) 100 mls @ 100 mls/hr IVPB DAILY VINCE PRN Reason: Protocol Last Admin: 11/16/17 10:55 Dose: 100 mls/hr Azithromycin 500 mg/ Sodium (Chloride) 250 mls @ 250 mls/hr IVPB DAILY VINCE PRN Reason: Protocol Last Admin: 11/16/17 09:00 Dose: 250 mls/hr Sodium Chloride (Sodium Chloride 0.9%) 1,000 mls @ 100 mls/hr IV .Q10H [facility] Last Admin: 11/17/17 00:20 Dose: 100 mls/hr Mirtazapine (Remeron) 7.5 mg PO HS [facility] Last Admin: 11/16/17 22:59 Dose: 7.5 mg Multivitamins (Hexavitamin) 1 tab PO DAILY [facility] Last Admin: 11/16/17 10:57 Dose: 1 tab Nicotine (Nicoderm Cq) 1 patch TD DAILY [facility] Last Admin: 11/16/17 10:58 Dose: 1 patch Saccharomyces Boulardii (Florastor) 250 mg PO Q12 [facility] Last Admin: 11/16/17 23:01 Dose: 250 mg Trazodone HCl (Desyrel) 50 mg PO HS PRN PRN Reason: Insomnia - Labs Labs: 11/16/17 08:00 11/16/17 08:00 Attending/Attestation - Attestation I have personally seen and examined this patient.: Yes I have fully participated in the care of the patient.: Yes I have reviewed all pertinent clinical information, including history, physical exam and plan: Yes Notes (Text): Patient seen and examined; I agree with the resident's note as above with the following additions/edits: 72 year old male with a PMH HTN, GERD, HLD, DJD, prostate CA s/p radiation, admitted with hypotension and acute kidney injury; ANETTE of pre-renal etiology, resolving with intravascular volume expansion and improving BP; inciting cause still somewhat unclear; patient's gives history that he was home alone over the weekend and likely did not have much PO intake while continuing to take his BP meds; however, profound hypotension is suspicious for overdose on his BP meds; -Continuing IVF; holding BP meds for now; -Recommend to avoid diuretics/CIRA inhibitor/ARB for anti-htn control as they will predispose to ANETTE if patient gets volume depleted; also, would not recommend tight BP control;
--- NOTE | 2017-11-16 14:20 | CT ---
Date of service: 11/16/2017 PROCEDURE: CT Chest without contrast HISTORY: pneumonia, pleural effusions?? COMPARISON: CT chest abdomen pelvis dated 03/20/2017 TECHNIQUE: Contiguous axial images were obtained through the chest without intravenous contrast enhancement. Sagittal and coronal reconstructions were performed. Radiation dose (DLP): mGy-cm. This CT exam was performed using one or more of the following dose reduction techniques: Automated exposure control, adjustment of the mA and/or kV according to patient size, and/or use of iterative reconstruction technique. FINDINGS: LUNGS: Resolution of previous noted large areas of ground-glass density infiltrate with stable nodule in the right upper lobe measuring roughly 6 millimeters. Residual subpleural consolidation in the lingula and left lower lobe. New juxtapleural nodule in the right lower lobe measuring 7 millimeters. Follow-up is advised. MEDIASTINUM: Unremarkable thoracic aorta. No aneurysm. Normal sized heart. Main pulmonary artery unremarkable. No vascular congestion. No lymphadenopathy. PLEURA: No pleural fluid. No pneumothorax. BONES: No fracture. No destructive lesion. UPPER ABDOMEN: Right upper pole renal cyst. OTHER FINDINGS: Stable bilateral thyroid nodules. IMPRESSION: Resolution of previous noted large areas of ground-glass density infiltrate with stable nodule in the right upper lobe measuring roughly 6 millimeters. Residual subpleural consolidation in the lingula and left lower lobe. New juxtapleural nodule in the right lower lobe measuring 7 millimeters. Follow-up is advised.
--- NOTE | 2017-11-16 15:16 | RAD ---
Date of service: 11/16/2017 HISTORY: Pneumonia COMPARISON: 11/15/2017 FINDINGS: LUNGS: No active pulmonary disease. PLEURA: No significant pleural effusion identified, no pneumothorax apparent. CARDIOVASCULAR: Cardiomegaly. No evidence of acute, significant cardiovascular disease. OSSEOUS STRUCTURES: No significant abnormalities. VISUALIZED UPPER ABDOMEN: Normal. OTHER FINDINGS: None. IMPRESSION: No active disease. No significant interval change compared to the prior examination(s).
[2017-11-16 16:33] VITALS: RESP 20
[2017-11-16] MEDS: Albuterol-Ipratrop 3 mg / 0.5 (3 ml) UD INH SCH (20:34)
[2017-11-17] MEDS: Sodium Chloride 0.9% 1,000 ML IV SCH ×2 (00:20→10:19)
[2017-11-17] MEDS: Albuterol-Ipratrop 3 mg / 0.5 (3 ml) UD INH SCH ×4 (01:14→19:31)
--- NOTE | 2017-11-17 07:18 | CP.PCM.PN ---
<Avila Berman - Last Filed: 11/17/17 15:09> Subjective - Date & Time of Evaluation Date of Evaluation: 11/17/17 Time of Evaluation: 07:15 - Subjective Subjective: John Berman D.O. PGY2 - Nephrology Progress Note for Dr. Chung Patient seen and examined this AM. No acute events reported overnight. Patient complains of lower back pain that is chronic in nature. Denies chest pain, shortness of breath, abdominal pain, nausea, vomiting, fever chills. Objective - Vital Signs/Intake and Output Vital Signs (last 24 hours): Temp Pulse Resp BP Pulse Ox 98.6 F 69 20 162/88 H 93 L 11/16/17 23:50 11/17/17 04:00 11/16/17 23:50 11/16/17 23:50 11/16/17 23:50 Intake and Output: 11/17/17 11/17/17 06:59 18:59 Intake Total 1000 Balance 1000 - Medications Medications: Current Medications Acetaminophen (Tylenol 325mg Tab) 650 mg PO Q6 PRN PRN Reason: Pain, moderate (4-7) Albuterol/Ipratropium (Duoneb 3 Mg/0.5 Mg (3 Ml) Ud) 3 ml INH RQ6 [facility] Last Admin: 11/17/17 01:14 Dose: Not Given Alprazolam (Xanax) 0.5 mg PO HS [facility] Last Admin: 11/16/17 22:59 Dose: 0.5 mg Ascorbic Acid (Vitamin C 500 Mg Tab) 500 mg PO DAILY [facility] Last Admin: 11/16/17 11:00 Dose: 500 mg Aspirin (Ecotrin) 81 mg PO DAILY [facility] Last Admin: 11/16/17 10:56 Dose: 81 mg Buprenorphine HCl (Subutex) 8 mg SL BID [facility] Last Admin: 11/16/17 18:31 Dose: 8 mg Escitalopram Oxalate (Lexapro) 10 mg PO DAILY [facility] Last Admin: 11/16/17 10:56 Dose: 10 mg Famotidine (Pepcid) 20 mg PO DAILY [facility] Last Admin: 11/16/17 10:56 Dose: 20 mg Heparin Sodium (Porcine) (Heparin) 5,000 units SC Q8 [facility] Last Admin: 11/17/17 06:23 Dose: 5,000 units Ceftriaxone Sodium 1 gm/ (Sodium Chloride) 100 mls @ 100 mls/hr IVPB DAILY [facility] PRN Reason: Protocol Last Admin: 11/16/17 10:55 Dose: 100 mls/hr Azithromycin 500 mg/ Sodium (Chloride) 250 mls @ 250 mls/hr IVPB DAILY [facility] PRN Reason: Protocol Last Admin: 11/16/17 09:00 Dose: 250 mls/hr Sodium Chloride (Sodium Chloride 0.9%) 1,000 mls @ 100 mls/hr IV .Q10H [facility] Last Admin: 11/17/17 00:20 Dose: 100 mls/hr Mirtazapine (Remeron) 7.5 mg PO HS [facility] Last Admin: 11/16/17 22:59 Dose: 7.5 mg Multivitamins (Hexavitamin) 1 tab PO DAILY [facility] Last Admin: 11/16/17 10:57 Dose: 1 tab Nicotine (Nicoderm Cq) 1 patch TD DAILY [facility] Last Admin: 11/16/17 10:58 Dose: 1 patch Saccharomyces Boulardii (Florastor) 250 mg PO Q12 [facility] Last Admin: 11/16/17 23:01 Dose: 250 mg Trazodone HCl (Desyrel) 50 mg PO HS PRN PRN Reason: Insomnia - Labs Labs: 11/16/17 08:00 11/16/17 08:00 - Constitutional Appears: No Acute Distress - Head Exam Head Exam: ATRAUMATIC, NORMOCEPHALIC - Eye Exam Eye Exam: EOMI, PERRL - Respiratory Exam Respiratory Exam: Clear to Ausculation Bilateral, NORMAL BREATHING PATTERN - Cardiovascular Exam Cardiovascular Exam: REGULAR RHYTHM, +S1, +S2 - GI/Abdominal Exam GI & Abdominal Exam: Soft, Normal Bowel Sounds - Extremities Exam Extremities Exam: Pedal Edema (2+ b/l) - Back Exam Additional comments: kyphosid - Neurological Exam Neurological Exam: Alert, Awake, Normal Gait, Oriented x3 Neuro motor strength exam: Left Upper Extremity: 5, Right Upper Extremity: 5, Left Lower Extremity: 5, Right Lower Extremity: 5 - Psychiatric Exam Psychiatric exam: Normal Affect, Normal Mood - Skin Skin Exam: Dry, Intact Assessment and Plan - Assessment and Plan (Free Text) Assessment: 72 year old male with a past medical history of HTN, GERD, HLD, DJD, prostate CA s/p radiation who presented with hypotension and acute renal failure. Patient has been receiving IV fluids and treatment to stabilize his hypotension. Plan: Patient Cr and GFR appear to be at baseline after IVF Avoid nephrotoxic agents and anihypertensives Patient noted to be hypertensive overnight, recheck vitals in AM Can restart beta madyson low dose as needed, can increase amlodipine from 2.5mg to 5mg as needed Continue antibiotic therapy per primary team Further recommendations per Dr. Chung Patient seen, case and plan discussed with attending Dr. Chung <Willy Chung - Last Filed: 11/18/17 07:36> Objective - Vital Signs/Intake and Output Vital Signs (last 24 hours): Temp Pulse Resp BP Pulse Ox 97.7 F 74 20 128/76 95 11/17/17 23:55 11/18/17 04:00 11/17/17 23:55 11/17/17 23:55 11/17/17 23:55 Intake and Output: 11/18/17 11/18/17 06:59 18:59 Intake Total 350 Balance 350 - Medications Medications: Current Medications Acetaminophen (Tylenol 325mg Tab) 650 mg PO Q6 PRN PRN Reason: Pain, moderate (4-7) Albuterol/Ipratropium (Duoneb 3 Mg/0.5 Mg (3 Ml) Ud) 3 ml INH RQ6 [facility] Last Admin: 11/18/17 02:37 Dose: Not Given Alprazolam (Xanax) 1 mg PO HS [facility] Last Admin: 11/17/17 22:27 Dose: 1 mg Amlodipine Besylate (Norvasc) 2.5 mg PO DAILY [facility] Last Admin: 11/17/17 10:35 Dose: 2.5 mg Ascorbic Acid (Vitamin C 500 Mg Tab) 500 mg PO DAILY [facility] Last Admin: 11/17/17 10:18 Dose: 500 mg Aspirin (Ecotrin) 81 mg PO DAILY [facility] Last Admin: 11/17/17 10:18 Dose: 81 mg Buprenorphine HCl (Subutex) 8 mg SL BID [facility] Last Admin: 11/17/17 18:14 Dose: 8 mg Escitalopram Oxalate (Lexapro) 10 mg PO DAILY [facility] Last Admin: 11/17/17 10:18 Dose: 10 mg Famotidine (Pepcid) 20 mg PO DAILY [facility] Last Admin: 11/17/17 10:18 Dose: 20 mg Guaifenesin (Mucinex La) 600 mg PO BID [facility] Last Admin: 11/17/17 18:14 Dose: 600 mg Heparin Sodium (Porcine) (Heparin) 5,000 units SC Q8 [facility] Last Admin: 11/18/17 05:16 Dose: Not Given Ceftriaxone Sodium 1 gm/ (Sodium Chloride) 100 mls @ 100 mls/hr IVPB DAILY [facility] PRN Reason: Protocol Last Admin: 11/17/17 10:19 Dose: 100 mls/hr Azithromycin 500 mg/ Sodium (Chloride) 250 mls @ 250 mls/hr IVPB DAILY [facility] PRN Reason: Protocol Last Admin: 11/17/17 10:30 Dose: 250 mls/hr Mirtazapine (Remeron) 15 mg PO HS [facility] Last Admin: 11/17/17 22:27 Dose: 15 mg Multivitamins (Hexavitamin) 1 tab PO DAILY [facility] Last Admin: 11/17/17 10:18 Dose: 1 tab Nicotine (Nicoderm Cq) 1 patch TD DAILY [facility] Last Admin: 11/17/17 10:18 Dose: 1 patch Saccharomyces Boulardii (Florastor) 250 mg PO Q12 [facility] Last Admin: 11/17/17 22:27 Dose: 250 mg Trazodone HCl (Desyrel) 50 mg PO HS PRN PRN Reason: Insomnia - Labs Labs: 11/17/17 07:40 11/17/17 07:40 Attending/Attestation - Attestation I have personally seen and examined this patient.: Yes I have fully participated in the care of the patient.: Yes I have reviewed all pertinent clinical information, including history, physical exam and plan: Yes Notes (Text): Patient seen and examined; I agree with the resident's note as above with the following additions/edits: Patient with htn, admitted with hypotension and acute kidney injury, both resolving with holding anti-htn meds and giving IVF; BP elevated earlier today, started on norvasc 2.5 mg daily; agree with choice of med as CIRA inhibitor and diuretic will predispose him to ANETTE if he again has decreased PO intake; titrate dose of norvasc higher as needed; Thank you for this referral, we will be signing off; please feel free to call us back as needed.
--- NOTE | 2017-11-17 07:28 | CARD ---
APPROVED REPORT Date of service: 11/16/2017 EXAM: Two-dimensional and M-mode echocardiogram with Doppler and color Doppler. RISK FACTORS Hypertension 2D DIMENSIONS IVSd0.7 (0.7-1.1cm)LVDd4.4 (3.9-5.9cm) PWd1.0 (0.7-1.1cm)LVDs3.1 (2.5-4.0cm) FS (%) 28.8 %LVEF (%)55.7 (>50%) M-Mode DIMENSIONS RVDd1.66 (2.1-3.2cm)Left Atrium (MM)3.92 (2.5-4.0cm) IVSd0.68 (0.7-1.1cm)Aortic Root3.51 (2.2-3.7cm) LVDd5.31 (4.0-5.6cm)Aortic Cusp Exc.1.95 (1.5-2.0cm) PWd0.68 (0.7-1.1cm)FS (%) 42 % LVDs3.10 (2.0-3.8cm)LVEF (%)60 (>50%) Mitral Valve MV E Pzljiyei874.8cm/sMV A Qdvpvkfp53.3cm/sE/A ratio2.0 TDI E/Lateral E'0.0E/Medial E'0.0 Tricuspid Valve TR Peak [id number]/sTR Peak Gr.[id number] LEFT VENTRICLE The left ventricle is normal size. There is normal left ventricular wall thickness. Left ventricle systolic function is normal. The Ejection Fraction is 55-60%. There is normal LV segmental wall motion. The left ventricular diastolic function is normal. RIGHT VENTRICLE The right ventricle is normal size. There is normal right ventricular wall thickness. The right ventricular systolic function is normal. ATRIA The left atrium size is normal. The right atrium size is normal. The interatrial septum is intact with no evidence for an atrial septal defect. AORTIC VALVE The aortic valve is normal in structure. No aortic regurgitation is present. There is no aortic valvular stenosis. There is no aortic valvular vegetation. MITRAL VALVE The mitral valve is normal in structure. There is no evidence of mitral valve prolapse. There is no mitral valve stenosis. Mitral regurgitation is mild. TRICUSPID VALVE The tricuspid valve is normal in structure. There is mild tricuspid regurgitation. Right ventricular systolic pressure is estimated at 30-40 mmHg. There is mild pulmonary hypertension. PULMONIC VALVE The pulmonic valve is not well visualized. There is mild pulmonic valvular regurgitation. GREAT VESSELS The aortic root is normal in size. PERICARDIAL EFFUSION There is no significant pericardial effusion. <Conclusion> Left ventricle systolic function is normal. The Ejection Fraction is 55-60%. No aortic regurgitation is present. Mitral regurgitation is mild. There is mild tricuspid regurgitation. There is mild pulmonary hypertension. There is mild pulmonic valvular regurgitation.
--- NOTE | 2017-11-17 07:30 | CP.PCM.PN ---
<aJswant Garcia M - Last Filed: 11/17/17 13:05> Subjective - Date & Time of Evaluation Date of Evaluation: 11/17/17 Time of Evaluation: 07:30 - Subjective Subjective: PGY-1 Medicine Progress Note for Dr. Sumner Patient was seen and examined today at bedside in no acute distress. No overnight events reported. Patient reports he continues to feel fine and has no symptoms. Patient reports he slept 4-5 hours but is requesting his home medication Xanax 1mg po which he reports taking for the past 2 years. Patient reports no difficulty ambulating or using the bathroom. Patient denies any cough , headache, dizziness, chest pain, shortness of breath or abdominal pain. Objective - Vital Signs/Intake and Output Vital Signs (last 24 hours): Temp Pulse Resp BP Pulse Ox 98.6 F 69 20 162/88 H 93 L 11/16/17 23:50 11/17/17 04:00 11/16/17 23:50 11/16/17 23:50 11/16/17 23:50 Intake and Output: 11/17/17 11/17/17 06:59 18:59 Intake Total 1000 Balance 1000 - Medications Medications: Current Medications Acetaminophen (Tylenol 325mg Tab) 650 mg PO Q6 PRN PRN Reason: Pain, moderate (4-7) Albuterol/Ipratropium (Duoneb 3 Mg/0.5 Mg (3 Ml) Ud) 3 ml INH RQ6 [facility] Last Admin: 11/17/17 01:14 Dose: Not Given Alprazolam (Xanax) 0.5 mg PO HS [facility] Last Admin: 11/16/17 22:59 Dose: 0.5 mg Ascorbic Acid (Vitamin C 500 Mg Tab) 500 mg PO DAILY [facility] Last Admin: 11/16/17 11:00 Dose: 500 mg Aspirin (Ecotrin) 81 mg PO DAILY [facility] Last Admin: 11/16/17 10:56 Dose: 81 mg Buprenorphine HCl (Subutex) 8 mg SL BID [facility] Last Admin: 11/16/17 18:31 Dose: 8 mg Escitalopram Oxalate (Lexapro) 10 mg PO DAILY [facility] Last Admin: 11/16/17 10:56 Dose: 10 mg Famotidine (Pepcid) 20 mg PO DAILY [facility] Last Admin: 11/16/17 10:56 Dose: 20 mg Heparin Sodium (Porcine) (Heparin) 5,000 units SC Q8 [facility] Last Admin: 11/17/17 06:23 Dose: 5,000 units Ceftriaxone Sodium 1 gm/ (Sodium Chloride) 100 mls @ 100 mls/hr IVPB DAILY [facility] PRN Reason: Protocol Last Admin: 11/16/17 10:55 Dose: 100 mls/hr Azithromycin 500 mg/ Sodium (Chloride) 250 mls @ 250 mls/hr IVPB DAILY [facility] PRN Reason: Protocol Last Admin: 11/16/17 09:00 Dose: 250 mls/hr Sodium Chloride (Sodium Chloride 0.9%) 1,000 mls @ 100 mls/hr IV .Q10H [facility] Last Admin: 11/17/17 00:20 Dose: 100 mls/hr Mirtazapine (Remeron) 7.5 mg PO HS [facility] Last Admin: 11/16/17 22:59 Dose: 7.5 mg Multivitamins (Hexavitamin) 1 tab PO DAILY [facility] Last Admin: 11/16/17 10:57 Dose: 1 tab Nicotine (Nicoderm Cq) 1 patch TD DAILY [facility] Last Admin: 11/16/17 10:58 Dose: 1 patch Saccharomyces Boulardii (Florastor) 250 mg PO Q12 [facility] Last Admin: 11/16/17 23:01 Dose: 250 mg Trazodone HCl (Desyrel) 50 mg PO HS PRN PRN Reason: Insomnia - Labs Labs: 11/16/17 08:00 11/16/17 08:00 - Constitutional Appears: Well, Non-toxic, No Acute Distress - Head Exam Head Exam: ATRAUMATIC, NORMAL INSPECTION, NORMOCEPHALIC - Eye Exam Eye Exam: EOMI, Normal appearance - ENT Exam ENT Exam: Mucous Membranes Moist - Respiratory Exam Respiratory Exam: Rales, NORMAL BREATHING PATTERN. absent: Rhonchi, Wheezes Additional comments: L > R b/l lower lobes - Cardiovascular Exam Cardiovascular Exam: +S1, +S2. absent: Irregular Rhythm, Murmur - GI/Abdominal Exam GI & Abdominal Exam: Soft, Normal Bowel Sounds. absent: Firm, Guarding, Rigid - Extremities Exam Extremities Exam: Full ROM. absent: Calf Tenderness Additional comments: trace pedal edema - Neurological Exam Neurological Exam: Alert, Awake, Oriented x3 - Psychiatric Exam Psychiatric exam: Normal Affect, Normal Mood - Skin Skin Exam: Dry, Intact, Normal Color, Warm Assessment and Plan - Assessment and Plan (Free Text) Assessment: Assessment: 72 yo M with PMHx of HTN, HLD, GERD, prostate cancer s/p radiation and spinal degenerative disease with disc herniation who is admitted for hypotension and pneumonia diagnosed in the ED. 1) Pneumonia Current Management: - pt denies cough, continue Abx Azithromycin 500mg& rocephin 1gm daily - Blood Cultures & urine cultures negative 24 hrs - F/u blood cultures up to 72 hours, if negative likely D/C Sunday 11/19 Imaging: - Initial CXR 11/15: Patchy opacities at left lung base. Correlate clinically for pneumonia. Cardiomegaly. Atherosclerotic calcification of the aorta - Repeat CXR 11/16: No active disease. No significant interval change compared to the prior examination. - CT chest 11/16: Resolution of previous noted large areas of ground glass density. Infiltrate with stable nodule in the right upper lobe measuring roughly 6 millimeters. Residual subpleural consolidation in the lingula and left lower lobe. New juxtapleural nodule in the right lower lobe measuring 7 millimeters. Medications: - Rocephin 1 gm IV daily - Azithromycin 500 mg IV daily - Florastor 250 mg po q12 - Duoneb q6h addi - Guanefisen 600 mg po BID - Educated patient to use inceptive spirometry at least 10 times per hour Labs: - Blood cultures 11/15/17: negative (after 24 hrs) - Urine cultures 11/15/17: negative (final) - Legionella: negative - Mycoplasma: negative - Procalcitonin: 0.05 - TSH 0.17, Free T4 0.91 - likely due to infxn 2) Acute renal failure- resolved - on admission BUN/ Cr 34/3.2 - > BUN/Cr at 20/1.3 (11/16) - > BUN/Cr at 12/1 () - Hold home meds: lisinopril/ HCTZ 20/25mg - F/u nephrology recs, Dr. Chung recs - continue NS @ 100cc/hr 3) Abnormal EKG - ECG: left anterior fasicular block; similar to previous on 03/2017 - F/u Cardio (Dr. Sal) recs - ECHO 11/16: EF 55-60%, mild mitral regurgitation, mild tricuspid regurgitation, mild pulmonary hypertension, mild pulmonary valve regurgitation - echo from 03/2017 - EF 65- 70%, LV systolic function - normal, LV diastolic function - normal 4) Hypotension - Resolved - on admission SBP in 80s, held home BP meds (atenolol 50 mg PO daily & lisinopril/ HCTZ 20/25mg) - CT head w/o contrast: chronic microvascular changes - Urine tox screen: negative except for benzodiazepines - > 3L NS given, now stable in 140's/70's 5) Bilateral lower extremity edema - like 2/2 due to previous gabapentin use - due to previous Ca history, will f/u venous doppler to r/o DVTs - Venous doppler 11/16: preliminary read as no abnormalities to b/l lower extremities. pending official read 6) History of HTN - lisinopril/ HCTZ 20/25mg held 2/2 to hypotension & ANETTE - start Norvasc 2.5 mg PO daily (11/17) 7) history of recreational drug abuse, chronic back pain - Hx of heroin abuse (stopped in 2001) & Percocet and Oxycodone (stopped in ) - Cleared by Psych (Dr. Kincaid) who recommended continuation of: - Xanax 1 mg PO HS (increased from 0.5 mg PO HS on 11/17) - Suboxone 8 mg SL bid - Trazodone 50 mg po HS - Lexapro 10 mg po daily - Mirtazapine 7.5 mg po daily (renal adjusted) - will consider full dose pending BUN/ Cr trend 8) Hx of gastritis - Pepcid 20 mg po daily - Florastor 250 mg po q12 9) Hx of Prostate CA - Bladder scan Q shift - 11/15/17: Mild caliectasis of left kidney. Bladder prevoid volume 145 cc. Post void volume 12 cc. Bilateral ureteral jets identified - BPH medication was held 2/2 to hypotension. Consider restarting home medication tomorrow if bp remains stable 10) Smoking history - Nicotine 21 mg patch 11) PPx - DVT ppx: Heparin 5000 mg SC q8 - GI ppx: Pepcid 20 mg po daily - Activity: out of bed, may shower - Heart healthy diet - Dispo: Patient continues to be asymptomatic but due to pneumonia seen on CXR and CT chest, patient being monitored while being given IV antibiotics until blood culture is negative for full 72 hours. Possible d/c on 11/19 if blood cultures remain negative (72 hours) and patient remains asymptomatic. <Toshia Sumner V - Last Filed: 11/19/17 19:59> Objective - Vital Signs/Intake and Output Vital Signs (last 24 hours): Temp Pulse Resp BP Pulse Ox 98.2 F 73 20 138/82 92 L 11/19/17 07:00 11/19/17 07:00 11/19/17 07:00 11/19/17 07:00 11/19/17 07:00 - Labs Labs: 11/19/17 08:27 11/19/17 08:27 Assessment and Plan (1) Pneumonia Status: Acute (2) Acute renal insufficiency Status: Acute (3) Hypotension Status: Resolved (4) Left anterior fascicular block Status: Chronic (5) Prostate cancer Status: Resolved Attending/Attestation - Attestation I have personally seen and examined this patient.: Yes I have fully participated in the care of the patient.: Yes I have reviewed all pertinent clinical information, including history, physical exam and plan: Yes Notes (Text): This is late computer entry for 11/17/17. Patient seen, examined, and case discussed with day-time resident. Agree with the resident's assessment and plan by the resident. Patient to continue IV abx for pneumonia. We will monitor blood cultures results. Renal function has recovered. Monitor blood pressure and will consider Norvasc for antihypertensive.
[2017-11-17 08:10] LABS: BASO % 0.3 % (0.0-2.0); EOS # 0.2 K/uL (0.0-0.7); EOS % 2.5 % (0.0-4.0); LYMPH # 3.5 K/uL (1.0-4.3); LYMPH % 51.2 % (20.0-40.0); MEAN CELL VOLUME 87.1 fL (80.0-94.0); MEAN CORPUSCULAR HEMOGLOBIN 30.6 pg (27.0-31.0); MEAN CORPUSCULAR HGB CONC 35.2 g/dL (33.0-37.0); MEAN PLATELET VOLUME 7.1 fL (7.2-11.7); MONO # 0.4 K/uL (0.0-0.8); NEUT # 2.7 K/uL (1.8-7.0); NRBC % 0.2 % (0.0-2.0); RBC 3.93 Mil/uL (4.40-5.90); RED CELL DISTRIBUTION WIDTH 14.1 % (11.5-14.5); WHITE BLOOD COUNT 6.8 K/uL (4.8-10.8)
[2017-11-17 09:05] LABS: ALB/GLOB RATIO 1.4 (1.0-2.1); ALBUMIN 3.4 g/dL (3.5-5.0); ALT/SGPT 30 U/L (21-72); AST/SGOT 27 U/L (17-59); BLOOD UREA NITROGEN 12 mg/dL (9-20); CALCIUM 8.9 mg/dl (8.6-10.4); GFR NON-AFRICAN AMERICAN > 60
[2017-11-17] MEDS: Saccharomyces Boulardi 250 mg Cap PO SCH ×2 (10:18→22:27)
[2017-11-17] MEDS: Multiple Vitamins Tab PO SCH (10:18)
[2017-11-17] MEDS: Buprenorphine Hydrochloride 8 mg SL SCH ×2 (10:18→18:14)
--- NOTE | 2017-11-17 10:19 | CP.PCM.PN ---
Subjective - Date & Time of Evaluation Date of Evaluation: 11/17/17 Time of Evaluation: 08:30 - Subjective Subjective: John Berman D.O. PGY2 - Nephrology Progress Note Dr. Chung Patient seen and evaluated this AM. Complains of back pain that is chronic in nature. Denies chest pain, shortenss of breath, urinary complaints, nausea, vomiting, fever, chills. Objective - Vital Signs/Intake and Output Vital Signs (last 24 hours): Temp Pulse Resp BP Pulse Ox 97.7 F 76 20 158/85 H 92 L 11/17/17 07:25 11/17/17 07:41 11/17/17 07:25 11/17/17 07:25 11/17/17 07:25 Intake and Output: 11/17/17 11/17/17 06:59 18:59 Intake Total 1000 Balance 1000 - Medications Medications: Current Medications Acetaminophen (Tylenol 325mg Tab) 650 mg PO Q6 PRN PRN Reason: Pain, moderate (4-7) Albuterol/Ipratropium (Duoneb 3 Mg/0.5 Mg (3 Ml) Ud) 3 ml INH RQ6 [facility] Last Admin: 11/17/17 07:49 Dose: Not Given Alprazolam (Xanax) 0.5 mg PO HS [facility] Last Admin: 11/16/17 22:59 Dose: 0.5 mg Ascorbic Acid (Vitamin C 500 Mg Tab) 500 mg PO DAILY [facility] Last Admin: 11/16/17 11:00 Dose: 500 mg Aspirin (Ecotrin) 81 mg PO DAILY [facility] Last Admin: 11/16/17 10:56 Dose: 81 mg Buprenorphine HCl (Subutex) 8 mg SL BID [facility] Last Admin: 11/16/17 18:31 Dose: 8 mg Escitalopram Oxalate (Lexapro) 10 mg PO DAILY [facility] Last Admin: 11/16/17 10:56 Dose: 10 mg Famotidine (Pepcid) 20 mg PO DAILY [facility] Last Admin: 11/16/17 10:56 Dose: 20 mg Heparin Sodium (Porcine) (Heparin) 5,000 units SC Q8 [facility] Last Admin: 11/17/17 06:23 Dose: 5,000 units Ceftriaxone Sodium 1 gm/ (Sodium Chloride) 100 mls @ 100 mls/hr IVPB DAILY [facility] PRN Reason: Protocol Last Admin: 11/16/17 10:55 Dose: 100 mls/hr Azithromycin 500 mg/ Sodium (Chloride) 250 mls @ 250 mls/hr IVPB DAILY [facility] PRN Reason: Protocol Last Admin: 11/16/17 09:00 Dose: 250 mls/hr Sodium Chloride (Sodium Chloride 0.9%) 1,000 mls @ 100 mls/hr IV .Q10H [facility] Last Admin: 11/17/17 00:20 Dose: 100 mls/hr Mirtazapine (Remeron) 7.5 mg PO HS [facility] Last Admin: 11/16/17 22:59 Dose: 7.5 mg Multivitamins (Hexavitamin) 1 tab PO DAILY [facility] Last Admin: 11/16/17 10:57 Dose: 1 tab Nicotine (Nicoderm Cq) 1 patch TD DAILY [facility] Last Admin: 11/16/17 10:58 Dose: 1 patch Saccharomyces Boulardii (Florastor) 250 mg PO Q12 [facility] Last Admin: 11/16/17 23:01 Dose: 250 mg Trazodone HCl (Desyrel) 50 mg PO HS PRN PRN Reason: Insomnia - Labs Labs: 11/17/17 07:40 11/17/17 07:40 - Constitutional Appears: No Acute Distress - Head Exam Head Exam: ATRAUMATIC, NORMOCEPHALIC - Eye Exam Eye Exam: EOMI, PERRL
[2017-11-17] MEDS: Azithromycin 500 MG in Sodium Chloride 0.9% 250 ML IVPB SCH (10:30)
[2017-11-17] MEDS ORDERED: Albuterol-Ipratrop 3 mg / 0.5 (3 ml) UD INH STA (10:40)
--- NOTE | 2017-11-17 12:27 | PCM.PYCHPN ---
Psychiatric Progress Note - Psychiatric Progress Note Patient seen today, length of contact: 16 min Patient Chief Complaint: "I couldn't sleep well" Problems Identified/Issues Discussed: The pt is seen, chart reviewed, case discussed with staff. The pt is compliant with medications and reports no side-effects. Symptoms are improving but needs more time to stabilize. Support given, psycho-education provided. Meds adjusted, he agreed to stay and complete his treatment Medication Change: Yes (increase remeron and xanx) Medical Record Reviewed: Yes Mental Status Examination - Cognitive Function Orientation: Person, Place, Situation, Time Memory: Intact Attention: Poor Concentration: Poor Association: WNL Fund of Knowledge: WNL - Mood Mood: Anxious - Affect Affect: Broad - Speech Speech: Appropriate - Formal Thought Process Formal Thought Process: No Impairment - Suicidal Ideation Suicidal Ideation: No - Homicidal Ideation Homicidal Ideation: No Goal/Treatment Plan - Goal/Treatment Plan Need for Continued Stay: Discharge may exacerbated symptoms, Severe functional impairment Progress Toward Problem(s) and Goals/Treatment Plan: Continue subutex, lexapro, remeron, xanax DC gabapentin medical mgt Cleared by psych
--- NOTE | 2017-11-17 13:37 | VASCLAB ---
Date of service: 11/16/2017 PROCEDURE: Lower Extremity Venous Duplex Exam. HISTORY: Lower extremity edema PRIORS: None. TECHNIQUE: Bilateral common femoral, femoral, popliteal and posterior tibial, peroneal and great saphenous veins were evaluated. Flow was assessed with color Doppler, compressibility, assessment of phasic flow and augmentation response. Report prepared by Payam Perry, BS, RVT FINDINGS: RIGHT: 1. Common Femoral Vein: 1.1. Compressibility - Fully compressible: Thrombus - None : Flow - Phasic: Augmentation -Normal: Reflux - None. 2. Femoral Vein: 2.1. Compressibility - Fully compressible: Thrombus - None : Flow - Phasic: Augmentation -Normal: Reflux - None. 3. Popliteal Vein: 3.1. Compressibility - Fully compressible: Thrombus - None : Flow - Phasic: Augmentation -Normal: Reflux - None. 4. Posterior Tibial Vein: 4.1. Compressibility - Fully compressible: Thrombus - None: Flow - Phasic: Augmentation -Normal: Reflux - None. 5. Peroneal Vein: 5.1. Compressibility - Fully compressible: Thrombus - None: Flow - Phasic: Augmentation -Normal: Reflux - None. 6. Great Saphenous Vein: 6.1. Compressibility - Fully compressible: Thrombus - None: Flow - Phasic: Augmentation - Normal: Reflux - None. LEFT: 1. Common Femoral Vein: 1.1. Compressibility - Fully compressible: Thrombus - None: Flow - Phasic: Augmentation -Normal: Reflux - None. 2. Femoral Vein: 2.1. Compressibility - Fully compressible: Thrombus - None: Flow - Phasic: Augmentation -Normal: Reflux - None. 3. Popliteal Vein: 3.1. Compressibility - Fully compressible: Thrombus - None : Flow - Phasic: Augmentation -Normal: Reflux - None. 4. Posterior Tibial Vein: 4.1. Compressibility - Fully compressible: Thrombus - None: Flow - Phasic: Augmentation -Normal: Reflux - None. 5. Peroneal Vein: 5.1. Compressibility - Fully compressible: Thrombus - None: Flow - Phasic: Augmentation -Normal: Reflux - None. 6. Great Saphenous Vein: 6.1. Compressibility - Fully compressible: Thrombus - None: Flow - Phasic: Augmentation - Normal: Reflux - None. OTHER FINDINGS: Right: None significant. Left: None significant. IMPRESSION: Right: No evidence of deep or superficial vein thrombosis of the right lower extremity. Normal valve function noted of the right side. Left: No evidence of deep or superficial vein thrombosis of the left lower extremity. Normal valve function noted of the left side.
[2017-11-17] MEDS: guaiFENesin 600 mg ER Tab PO SCH (18:14)
--- NOTE | 2017-11-18 01:22 | CP.PCM.PN ---
Addendum entered and electronically signed by Dann Santoro DO 11/18/17 06:43 : Correction - PGY-[address] Sumner Addendum entered and electronically signed by Dann Santoro DO 11/18/17 01:29 : PGY-[address] Tony Original Note: <Dann Santoro - Last Filed: 11/18/17 01:20> Subjective - Date & Time of Evaluation Date of Evaluation: 11/18/17 Time of Evaluation: 01:20 - Subjective Subjective: PGY-1 Medicine Progress Note for Dr. Sumner Patient was seen and examined today at bedside. Patient in no acute distress. Patient does note he has been bleeding excessively during blood draws and has been brusing more easily than usual. Otherwise patient is comfortable with no complaints. Patient reports no difficulty ambulating or using the bathroom. Patient denies any cough, headache, dizziness, chest pain, shortness of breath or abdominal pain. Objective - Vital Signs/Intake and Output Vital Signs (last 24 hours): Temp Pulse Resp BP Pulse Ox 98.3 F 73 20 133/86 97 11/17/17 15:00 11/17/17 15:00 11/17/17 15:00 11/17/17 15:00 11/17/17 15:00 Intake and Output: 11/17/17 11/18/17 18:59 06:59 Intake Total 350 Balance 350 - Medications Medications: Current Medications Acetaminophen (Tylenol 325mg Tab) 650 mg PO Q6 PRN PRN Reason: Pain, moderate (4-7) Albuterol/Ipratropium (Duoneb 3 Mg/0.5 Mg (3 Ml) Ud) 3 ml INH RQ6 [facility] Last Admin: 11/17/17 19:31 Dose: 3 ml Alprazolam (Xanax) 1 mg PO HS [facility] Last Admin: 11/17/17 22:27 Dose: 1 mg Amlodipine Besylate (Norvasc) 2.5 mg PO DAILY [facility] Last Admin: 11/17/17 10:35 Dose: 2.5 mg Ascorbic Acid (Vitamin C 500 Mg Tab) 500 mg PO DAILY [facility] Last Admin: 11/17/17 10:18 Dose: 500 mg Aspirin (Ecotrin) 81 mg PO DAILY [facility] Last Admin: 11/17/17 10:18 Dose: 81 mg Buprenorphine HCl (Subutex) 8 mg SL BID [facility] Last Admin: 11/17/17 18:14 Dose: 8 mg Escitalopram Oxalate (Lexapro) 10 mg PO DAILY [facility] Last Admin: 11/17/17 10:18 Dose: 10 mg Famotidine (Pepcid) 20 mg PO DAILY [facility] Last Admin: 11/17/17 10:18 Dose: 20 mg Guaifenesin (Mucinex La) 600 mg PO BID [facility] Last Admin: 11/17/17 18:14 Dose: 600 mg Heparin Sodium (Porcine) (Heparin) 5,000 units SC Q8 [facility] Last Admin: 11/17/17 22:27 Dose: 5,000 units Ceftriaxone Sodium 1 gm/ (Sodium Chloride) 100 mls @ 100 mls/hr IVPB DAILY [facility] PRN Reason: Protocol Last Admin: 11/17/17 10:19 Dose: 100 mls/hr Azithromycin 500 mg/ Sodium (Chloride) 250 mls @ 250 mls/hr IVPB DAILY [facility] PRN Reason: Protocol Last Admin: 11/17/17 10:30 Dose: 250 mls/hr Mirtazapine (Remeron) 15 mg PO HS [facility] Last Admin: 11/17/17 22:27 Dose: 15 mg Multivitamins (Hexavitamin) 1 tab PO DAILY [facility] Last Admin: 11/17/17 10:18 Dose: 1 tab Nicotine (Nicoderm Cq) 1 patch TD DAILY [facility] Last Admin: 11/17/17 10:18 Dose: 1 patch Saccharomyces Boulardii (Florastor) 250 mg PO Q12 [facility] Last Admin: 11/17/17 22:27 Dose: 250 mg Trazodone HCl (Desyrel) 50 mg PO HS PRN PRN Reason: Insomnia - Labs Labs: 11/17/17 07:40 11/17/17 07:40 - Constitutional Appears: Well, Non-toxic, No Acute Distress - Head Exam Head Exam: ATRAUMATIC, NORMAL INSPECTION - Eye Exam Eye Exam: EOMI, Normal appearance - ENT Exam ENT Exam: Mucous Membranes Moist - Respiratory Exam Respiratory Exam: Clear to Ausculation Bilateral, NORMAL BREATHING PATTERN - Cardiovascular Exam Cardiovascular Exam: REGULAR RHYTHM, +S1, +S2 - GI/Abdominal Exam GI & Abdominal Exam: Soft, Normal Bowel Sounds. absent: Tenderness - Extremities Exam Extremities Exam: Full ROM, Normal Capillary Refill. absent: Pedal Edema - Neurological Exam Neurological Exam: Alert, Awake, CN II-XII Intact, Normal Gait, Oriented x3 - Skin Additional comments: +echymosis on abdomen at injection site Assessment and Plan - Assessment and Plan (Free Text) Assessment: Assessment: Assessment: 72 yo M with PMHx of HTN, HLD, GERD, prostate cancer s/p radiation and spinal degenerative disease with disc herniation who is admitted for hypotension and pneumonia diagnosed in the ED. 1) Pneumonia Current Management: - pt denies cough, continue Abx Azithromycin 500mg& rocephin 1gm daily - Blood Cultures & urine cultures negative 24 hrs - F/u blood cultures up to 72 hours, if negative likely D/C Sunday 11/19 Imaging: - Initial CXR 11/15: Patchy opacities at left lung base. Correlate clinically for pneumonia. Cardiomegaly. Atherosclerotic calcification of the aorta - Repeat CXR 11/16: No active disease. No significant interval change compared to the prior examination. - CT chest 11/16: Resolution of previous noted large areas of ground glass density. Infiltrate with stable nodule in the right upper lobe measuring roughly 6 millimeters. Residual subpleural consolidation in the lingula and left lower lobe. New juxtapleural nodule in the right lower lobe measuring 7 millimeters. Medications: - Rocephin 1 gm IV daily - Azithromycin 500 mg IV daily - Florastor 250 mg po q12 - Duoneb q6h addi - Guanefisen 600 mg po BID - Educated patient to use inceptive spirometry at least 10 times per hour Labs: - Blood cultures 11/15/17: negative (after 24 hrs) - Urine cultures 11/15/17: negative (final) - Legionella: negative - Mycoplasma: negative - Procalcitonin: 0.05 - TSH 0.17, Free T4 0.91 - likely due to infxn 2) Acute renal failure- resolved - on admission BUN/ Cr 34/3.2 - > BUN/Cr at 20/1.3 (11/16) - > BUN/Cr at 12/ () - Hold home meds: lisinopril/ HCTZ 20/25mg - F/u nephrology recs, Dr. Chung recs - continue NS @ 100cc/hr 3) Abnormal EKG - ECG: left anterior fasicular block; similar to previous on 03/2017 - F/u Cardio (Dr. Sal) recs - ECHO 11/16: EF 55-60%, mild mitral regurgitation, mild tricuspid regurgitation, mild pulmonary hypertension, mild pulmonary valve regurgitation - echo from 03/2017 - EF 65- 70%, LV systolic function - normal, LV diastolic function - normal 4) Hypotension - Resolved - on admission SBP in 80s, held home BP meds (atenolol 50 mg PO daily & lisinopril/ HCTZ 20/25mg) - CT head w/o contrast: chronic microvascular changes - Urine tox screen: negative except for benzodiazepines - > 3L NS given, now stable in 140's/70's 5) Bilateral lower extremity edema - like 2/2 due to previous gabapentin use - due to previous Ca history, will f/u venous doppler to r/o DVTs - Venous doppler 11/16: preliminary read as no abnormalities to b/l lower extremities. pending official read 6) History of HTN - lisinopril/ HCTZ 20/25mg held 2/2 to hypotension & ANETTE - start Norvasc 2.5 mg PO daily (11/17) 7) history of recreational drug abuse, chronic back pain - Hx of heroin abuse (stopped in 2001) & Percocet and Oxycodone (stopped in ) - Cleared by Psych (Dr. Kincaid) who recommended continuation of: - Xanax 1 mg PO HS (increased from 0.5 mg PO HS on 11/17) - Suboxone 8 mg SL bid - Trazodone 50 mg po HS - Lexapro 10 mg po daily - Mirtazapine 7.5 mg po daily (renal adjusted) - will consider full dose pending BUN/ Cr trend 8) Hx of gastritis - Pepcid 20 mg po daily - Florastor 250 mg po q12 9) Hx of Prostate CA - Bladder scan Q shift - 11/15/17: Mild caliectasis of left kidney. Bladder prevoid volume 145 cc. Post void volume 12 cc. Bilateral ureteral jets identified - BPH medication was held 2/2 to hypotension. Consider restarting home medication tomorrow if bp remains stable 10) Smoking history - Nicotine 21 mg patch 11) PPx - DVT ppx: Heparin 5000 mg SC q8 - GI ppx: Pepcid 20 mg po daily - Activity: out of bed, may shower - Heart healthy diet - Dispo: Patient continues to be asymptomatic but due to pneumonia seen on CXR and CT chest, patient being monitored while being given IV antibiotics until blood culture is negative for full 72 hours. Possible d/c on 11/19 if blood cultures remain negative (72 hours) and patient remains asymptomatic. <Toshia Sumner V - Last Filed: 11/18/17 08:54> Objective - Vital Signs/Intake and Output Vital Signs (last 24 hours): Temp Pulse Resp BP Pulse Ox 98.2 F 71 20 131/86 96 11/18/17 07:30 11/18/17 07:30 11/18/17 07:30 11/18/17 07:30 11/18/17 07:30 Intake and Output: 11/18/17 11/18/17 06:59 18:59 Intake Total 350 Balance 350 - Medications Medications: Current Medications Acetaminophen (Tylenol 325mg Tab) 650 mg PO Q6 PRN PRN Reason: Pain, moderate (4-7) Albuterol/Ipratropium (Duoneb 3 Mg/0.5 Mg (3 Ml) Ud) 3 ml INH RQ6 [facility] Last Admin: 11/18/17 07:43 Dose: 3 ml Alprazolam (Xanax) 1 mg PO HS [facility] Last Admin: 11/17/17 22:27 Dose: 1 mg Amlodipine Besylate (Norvasc) 2.5 mg PO DAILY [facility] Last Admin: 11/17/17 10:35 Dose: 2.5 mg Ascorbic Acid (Vitamin C 500 Mg Tab) 500 mg PO DAILY [facility] Last Admin: 11/17/17 10:18 Dose: 500 mg Aspirin (Ecotrin) 81 mg PO DAILY [facility] Last Admin: 11/17/17 10:18 Dose: 81 mg Buprenorphine HCl (Subutex) 8 mg SL BID [facility] Last Admin: 11/17/17 18:14 Dose: 8 mg Escitalopram Oxalate (Lexapro) 10 mg PO DAILY [facility] Last Admin: 11/17/17 10:18 Dose: 10 mg Famotidine (Pepcid) 20 mg PO DAILY [facility] Last Admin: 11/17/17 10:18 Dose: 20 mg Guaifenesin (Mucinex La) 600 mg PO BID [facility] Last Admin: 11/17/17 18:14 Dose: 600 mg Heparin Sodium (Porcine) (Heparin) 5,000 units SC Q8 [facility] Last Admin: 11/18/17 05:16 Dose: Not Given Ceftriaxone Sodium 1 gm/ (Sodium Chloride) 100 mls @ 100 mls/hr IVPB DAILY [facility] PRN Reason: Protocol Last Admin: 11/17/17 10:19 Dose: 100 mls/hr Azithromycin 500 mg/ Sodium (Chloride) 250 mls @ 250 mls/hr IVPB DAILY [facility] PRN Reason: Protocol Last Admin: 11/17/17 10:30 Dose: 250 mls/hr Mirtazapine (Remeron) 15 mg PO HS [facility] Last Admin: 11/17/17 22:27 Dose: 15 mg Multivitamins (Hexavitamin) 1 tab PO DAILY [facility] Last Admin: 11/17/17 10:18 Dose: 1 tab Nicotine (Nicoderm Cq) 1 patch TD DAILY [facility] Last Admin: 11/17/17 10:18 Dose: 1 patch Saccharomyces Boulardii (Florastor) 250 mg PO Q12 [facility] Last Admin: 11/17/17 22:27 Dose: 250 mg Trazodone HCl (Desyrel) 50 mg PO HS PRN PRN Reason: Insomnia - Labs Labs: 11/18/17 08:11 11/17/17 07:40 Attending/Attestation - Attestation I have personally seen and examined this patient.: Yes I have fully participated in the care of the patient.: Yes I have reviewed all pertinent clinical information, including history, physical exam and plan: Yes Notes (Text): Patient seen, examined and case discussed with day-time resident. Patient noted last night he had some bleeding from what it appears to be from his DVT ppx. Patient has a superifical wound over the right lower quadrant and small ecchymoses over the LLQ. I spoke with his nurse today to redress the dressing over the right lower quadrant which appears superificial. Patient denies chest pain, denies shortness of breathe, reports the incentive spirometry is helping him. Patient is aware he is on new anti-hypertensive to increase blood pressure. Patient remains afebrile, no elevated white count. Patient is on IV abx to cover for community acquired pneumonia; we are awaiting blood cultures for 72 hours X2 for discharge for tomorrow. He was advised he will need to f/u with his PMD for his pneumonia and flu vaccinations. Assessment/Plan 1) Pneumonia * CXR 11/15 - Patchy opacities at left lung base. Correlate clinically for pneumonia. Cardiomegaly. Atherosclerotic calcification of the aorta. * CT chest (11/16/17); resolution of previous noted large areas of ground glass density infiltrate with stable nodule in the right upper lobe measuring roughy 6 mL. residual subpleural consolidation in the lingula and left lower lobe. New juxtapleural nodue in right lower lobe measuring 7mm * Rocephin 1 gram IVPB daily * Azithromycin 500mg IVPB daily * Duoneb 3ml RQ6H scheduled * Tylenol 650mg PO Q6H PRN pain * Legionella: negative * Mycoplasma IGM: negative * Blood cultures X2: negative for 28 hours * Mucinex 600mg PO bid * He was advised he will need to f/u with his PMD for his pneumonia and flu vaccinations. He will need f/u with pulm for nodules once completes treatment for pneumonia 2) Hypotension-->resolved * multifactorial: polypharmacy, pneumonia * Troponin negative, d-dimer negative * Patient is off IV fluids * Procalcitonin: low * TSH low, needs repeat thyroid studies 3) Acute Renal Failure-->Resolved * Antihypertensives held on admission * Nephro consulted (Dr. Chung). Help appreciated-->signed off * Resolved with IV fluids * held beta/diuretic/ashley * Start low dose norvasc 4) HTN, history of-->chronic * Antihypertensives held on admission * held beta/diuretic/ashley given renal failure * Aspirin 81mg once day 5) Lipid disorder-->chronic * Statin held given renal failure * Lipid panel: 127 TG, 126 chol, 66 LDL, 26 HDL * Will restart simvastatin 40mg POqHS 6) Chronic Back Pain-->chronic * Psych consulted (Dr. Kincaid). Help appreciated --> Possible restart suboxone * Trazodone 50 mg po HS * Lexapro 10 mg po daily * Increase to home dose: Mirtazapine 15 mg po daily (renal adjusted) (takes higher dose at home) 7) History of Gastritis-->chronic * Pepcid 20mg PO daily 8) Hx prostate CA-->chronic * Start Rapaflow 8mg PO daily * Bladder scan Q shift 9) Abnormal EKG-->Resolved * Cardiology consulted (Dr. Ozuna). Help appreciated. * LAFB on ekg * echo: left ventricle systolic function is normal. EF: 55-60%, no aortic regurgitation is present. mitral regurgitation is mild. mild tricupsid regurgitation, mild pulmonary hypertension, mild pulmonic valvular regurgitation 10) Lower leg edema * no dvt on US * patient attributes to Lyrica * Nonpitting * start low dose norvasc-->monitor if edema becomes worse or not 11) Superifical abdominal wound * Wound care and dressing * avoid DVT injection shots to the site 12) PPx * Heparin 5000 mg SC Q8 * Activity: Bedrest, bathroom comode * Pepcid 20mg PO daily Disposition: possible d/c tomorrow. d/c telemetry. Awaiting blood cultures to be negative for 72 hours. c/w IV to cover for CAP
[2017-11-18] MEDS: Albuterol-Ipratrop 3 mg / 0.5 (3 ml) UD INH SCH ×4 (02:37→19:42)
[2017-11-18 08:20] LABS: BASO % 0.4 % (0.0-2.0); EOS # 0.2 K/uL (0.0-0.7); EOS % 2.6 % (0.0-4.0); HEMOGLOBIN 12.2 g/dL (12.0-18.0); LYMPH # 3.4 K/uL (1.0-4.3); MEAN CELL VOLUME 87.3 fL (80.0-94.0); MEAN CORPUSCULAR HEMOGLOBIN 30.8 pg (27.0-31.0); MEAN CORPUSCULAR HGB CONC 35.2 g/dL (33.0-37.0); MEAN PLATELET VOLUME 6.8 fL (7.2-11.7); MONO # 0.4 K/uL (0.0-0.8); MONO % 5.8 % (0.0-10.0); NEUT # 2.3 K/uL (1.8-7.0); NEUT % 37.2 % (50.0-75.0); NRBC % 0.1 % (0.0-2.0); RBC 3.96 Mil/uL (4.40-5.90); RED CELL DISTRIBUTION WIDTH 14.1 % (11.5-14.5); WHITE BLOOD COUNT 6.2 K/uL (4.8-10.8)
[2017-11-18 08:47] LABS: ALB/GLOB RATIO 1.5 (1.0-2.1); ALBUMIN 3.9 g/dL (3.5-5.0); ALT/SGPT 32 U/L (21-72); AST/SGOT 33 U/L (17-59); BLOOD UREA NITROGEN 12 mg/dL (9-20); CALCIUM 9.2 mg/dl (8.6-10.4); GFR NON-AFRICAN AMERICAN > 60
[2017-11-18] MEDS: Multiple Vitamins Tab PO SCH (09:31)
[2017-11-18] MEDS: Saccharomyces Boulardi 250 mg Cap PO SCH ×2 (09:31→21:38)
[2017-11-18] MEDS: Buprenorphine Hydrochloride 8 mg SL SCH ×2 (09:31→18:58)
[2017-11-18] MEDS: guaiFENesin 600 mg ER Tab PO SCH ×2 (09:31→18:58)
[2017-11-18] MEDS ORDERED: Home Med 1 UNIT (Silodosin [Rapaflo] 8 MG) PO SCH (10:00)
[2017-11-18] MEDS: Azithromycin 500 MG in Sodium Chloride 0.9% 250 ML IVPB SCH (10:29)
--- NOTE | 2017-11-18 16:55 | PCM.PYCHPN ---
Psychiatric Progress Note - Psychiatric Progress Note Patient seen today, length of contact: 15 min Patient Chief Complaint: "I am fine today" Problems Identified/Issues Discussed: The pt is seen, chart reviewed, case discussed with staff. The pt is compliant with medications and reports no side-effects. Symptoms are improving but needs more time to stabilize. 0.5 mg xanax prn added for anxiety Support given, psycho-education provided. Medication Change: Yes (prn xanax) Medical Record Reviewed: Yes Mental Status Examination - Cognitive Function Orientation: Person, Place, Situation, Time Memory: Intact Attention: Poor Concentration: Poor Association: WNL Fund of Knowledge: WNL - Mood Mood: Anxious - Affect Affect: Broad - Speech Speech: Appropriate - Formal Thought Process Formal Thought Process: No Impairment - Suicidal Ideation Suicidal Ideation: No - Homicidal Ideation Homicidal Ideation: No Goal/Treatment Plan - Goal/Treatment Plan Need for Continued Stay: Other (medical) Progress Toward Problem(s) and Goals/Treatment Plan: Continue subutex, lexapro, remeron, xanax DC gabapentin medical mgt Cleared by psych
[2017-11-19] MEDS: Albuterol-Ipratrop 3 mg / 0.5 (3 ml) UD INH SCH ×2 (02:30→08:39)
--- NOTE | 2017-11-19 08:00 | CP.PCM.DIS ---
Provider - Provider Date of Admission: 11/15/17 14:41 Attending physician: Toshia Sumner DO Primary care physician: Dr. Sharma Time Spent in preparation of Discharge (in minutes): 31 Diagnosis - Discharge Diagnosis (1) Pneumonia Status: Acute Comment: Patient is on IV abx (rocephin and Azithromycin). Advised to wait on steroid injection shot with pain management until he recovers. Patient to be discharged on Avelox 400mg once day (5 tabs) for CAP. Patient advised to stop smoking. Patient is aware it will delay his recovering from his pneumonia. He will need a follow-up chest xray on discharge and recommended to f/u with PMD when he has recovered (2) Acute renal insufficiency Status: Acute Comment: Nephrology has seen and elevated. Recovered with IV fluids. Patient noted to have renal cysts will need follow-up with urology. Likely secondary to diuretic/ashley-inhibitor (3) Hypotension Status: Resolved Comment: likely multifactorial (4) Left anterior fascicular block Status: Chronic Comment: stable per cardio. echo completed during hospitalization (5) Prostate cancer Status: Resolved Comment: will f.u with urologist upon discharge Hospital Course - Lab Results Lab Results: Micro Results 11/15/17 21:21 Blood Blood Culture - Preliminary NO GROWTH AFTER 3 DAYS 11/15/17 21:21 Blood Blood Culture - Preliminary NO GROWTH AFTER 3 DAYS 11/15/17 15:30 Urine,Clean Catch Urine Culture - Final No Growth (<1,000 CFU/ML) Most Recent Lab Values WBC 6.2 K/uL (4.8-10.8) 11/18/17 08:11 RBC 3.96 Mil/uL (4.40-5.90) L 11/18/17 08:11 Hgb 12.2 g/dL (12.0-18.0) 11/18/17 08:11 Hct 34.6 % (35.0-51.0) L 11/18/17 08:11 MCV 87.3 fL (80.0-94.0) 11/18/17 08:11 MCH 30.8 pg (27.0-31.0) 11/18/17 08:11 MCHC 35.2 g/dL (33.0-37.0) 11/18/17 08:11 RDW 14.1 % (11.5-14.5) 11/18/17 08:11 Plt Count 158 K/uL (130-400) 11/18/17 08:11 MPV 6.8 fL (7.2-11.7) L 11/18/17 08:11 Neut % (Auto) 37.2 % (50.0-75.0) L 11/18/17 08:11 Lymph % (Auto) 54.0 % (20.0-40.0) H 11/18/17 08:11 [place] % (Auto) 5.8 % (0.0-10.0) 11/18/17 08:11 Eos % (Auto) 2.6 % (0.0-4.0) 11/18/17 08:11 Baso % (Auto) 0.4 % (0.0-2.0) 11/18/17 08:11 Neut # (Auto) 2.3 K/uL (1.8-7.0) 11/18/17 08:11 Lymph # (Auto) 3.4 K/uL (1.0-4.3) 11/18/17 08:11 [place] # (Auto) 0.4 K/uL (0.0-0.8) 11/18/17 08:11 Eos # (Auto) 0.2 K/uL (0.0-0.7) 11/18/17 08:11 Baso # (Auto) 0.0 K/uL (0.0-0.2) 11/18/17 08:11 D-Dimer, Quantitative < 200 ng/mlDDU (0-243) 11/15/17 15:30 pO2 47 mm/Hg (30-55) 11/15/17 13:24 VBG pH 7.41 (7.32-7.43) 11/15/17 13:24 VBG pCO2 45 mmHg (40-60) 11/15/17 13:24 VBG HCO3 27.0 mmol/L 11/15/17 13:24 VBG Total CO2 29.9 mmol/L (22-28) H 11/15/17 13:24 VBG O2 Sat (Calc) 87.2 % (40-65) H 11/15/17 13:24 VBG Base Excess 3.2 mmol/L (0.0-2.0) H 11/15/17 13:24 VBG Potassium 3.6 mmol/L (3.6-5.2) 11/15/17 13:24 Sodium 139.0 mmol/l (132-148) 11/15/17 13:24 Chloride 105.0 mmol/L (98-107) 11/15/17 13:24 Glucose 93 mg/dl (75-110) 11/15/17 13:24 Lactate 1.1 mmol/L (0.7-2.1) 11/15/17 13:24 Sodium 143 mmol/L (132-148) 11/18/17 08:11 Potassium 3.8 mmol/L (3.6-5.2) 11/18/17 08:11 Chloride 107 mmol/L (98-107) 11/18/17 08:11 Carbon Dioxide 27 mmol/L (22-30) 11/18/17 08:11 Anion Gap 13 (10-20) 11/18/17 08:11 BUN 12 mg/dL (9-20) 11/18/17 08:11 Creatinine 0.9 mg/dL (0.8-1.5) 11/18/17 08:11 Est GFR ( Amer) > 60 11/18/17 08:11 Est GFR (Non-Af Amer) > 60 11/18/17 08:11 Random Glucose 82 mg/dL (75-110) 11/18/17 08:11 Calcium 9.2 mg/dl (8.6-10.4) 11/18/17 08:11 Phosphorus 4.6 mg/dL (2.5-4.5) H 11/18/17 08:11 Magnesium 1.7 mg/dL (1.6-2.3) 11/18/17 08:11 Total Bilirubin 0.5 mg/dL (0.2-1.3) 11/18/17 08:11 AST 33 U/L (17-59) 11/18/17 08:11 ALT 32 U/L (21-72) 11/18/17 08:11 Alkaline Phosphatase 55 U/L (38-126) 11/18/17 08:11 Total Creatine Kinase 155 U/L (55-170) 11/15/17 13:03 Troponin I < 0.0120 ng/mL (0.00-0.120) 11/15/17 15:30 Total Protein 6.4 g/dL (6.3-8.3) 11/18/17 08:11 Albumin 3.9 g/dL (3.5-5.0) 11/18/17 08:11 Globulin 2.6 gm/dL (2.2-3.9) 11/18/17 08:11 Albumin/Globulin Ratio 1.5 (1.0-2.1) 11/18/17 08:11 Triglycerides 127 mg/dL (0-149) 11/16/17 08:00 Cholesterol 126 mg/dL (0-199) 11/16/17 08:00 LDL Cholesterol Direct 66 mg/dL (0-129) 11/16/17 08:00 HDL Cholesterol 26 mg/dL (30-70) L 11/16/17 08:00 Procalcitonin 0.05 NG/ML (0.19-0.49) L 11/15/17 15:30 Free T4 0.91 ng/dL (0.78-2.19) 11/16/17 08:00 TSH 3rd Generation 0.17 mIU/L (0.46-4.68) L 11/16/17 08:00 Cortisol AM Sample 4.2 ug/dL (4.46-22.7) L 11/16/17 08:00 Venous Blood Potassium 3.6 mmol/L (3.6-5.2) 11/15/17 13:24 Urine Color María Elena (YELLOW) 11/15/17 14:20 Urine Clarity Hazy (Clear) 11/15/17 14:20 Urine pH 5.0 (5.0-8.0) 11/15/17 14:20 Ur Specific [place] 1.020 (1.003-1.030) 11/15/17 14:20 Urine Protein Negative mg/dL (NEGATIVE) 11/15/17 14:20 Urine Glucose (UA) Normal mg/dL (Normal) 11/15/17 14:20 Urine Ketones Negative mg/dL (NEGATIVE) 11/15/17 14:20 Urine Blood Negative (NEGATIVE) 11/15/17 14:20 Urine Nitrate Negative (NEGATIVE) 11/15/17 14:20 Urine Bilirubin Negative (NEGATIVE) 11/15/17 14:20 Urine Urobilinogen 2.0 mg/dL (0.2-1.0) 11/15/17 14:20 Ur Leukocyte Esterase Neg Yosef/uL (Negative) 11/15/17 14:20 Urine WBC (Auto) 3 /hpf (0-5) 11/15/17 14:20 Urine RBC (Auto) < 1 /hpf (0-3) 11/15/17 14:20 Ur Squamous Epith Cells 2 /hpf (0-5) 11/15/17 14:20 Urine Bacteria Rare (<OCC) 11/15/17 14:20 Hyaline Casts >20 /lpf (0-2) H 11/15/17 14:20 Ur Random Creatinine 79.6 mg/dL 11/16/17 07:26 Ur Random Sodium 122 mmol/L 11/16/17 07:26 Urine Opiates Screen Negative (NEGATIVE) 11/15/17 18:30 Urine Methadone Screen Negative (NEGATIVE) 11/15/17 18:30 Ur Barbiturates Screen Negative (NEGATIVE) 11/15/17 18:30 Ur Phencyclidine Scrn Negative (NEGATIVE) 11/15/17 18:30 Ur Amphetamines Screen Negative (NEGATIVE) 11/15/17 18:30 U Benzodiazepines Scrn Positive (NEGATIVE) 11/15/17 18:30 U Oth Cocaine Metabols Negative (NEGATIVE) 11/15/17 18:30 U Cannabinoids Screen Negative (NEGATIVE) 11/15/17 18:30 Ur L.pneumophila Ag Negative (NEGATIVE) 11/16/17 07:26 Mycoplasma pneumon IgM Negative (NEGATIVE) 11/16/17 08:00 - Hospital Course Hospital Course: As per resident H&P Patient is a 72 year old male with past medical history of HTN, HLD, GERD, constipation, spinal degenerative disease with disc herniation, prostate cancer s/p radiation presents to [facility] on 11/15 complaining of low blood pressure. Patient reports that he checked his blood pressure this morning in preparation of a scheduling spinal epidural injection tomorrow with his pain management doctor. Patient reports that his left arm at home as 58/40 mmHg and right arm at home was 50/40 mmHg. His blood pressure normally runs 130/85-90 mmHg. Patient took his medications at 8:30 AM per usual and check his blood pressure at 11:15 AM with machine that he has had for 6-7 years and regularly uses. Patient states that he has had episodes of low blood pressure in the past , the most recent being 4-5 weeks ago when patient went for an epidural injection and BP at office was found to be very low. Pt was given IV fluids at that time, and his BP corrected and patient did recieve the epidural injection at that time. Pt has continued to take his BP meds daily since that time. Patient states that he noticed his blood pressure has been lower since 03/23 when he was admitted for oxycodone withdrawal. Patient states that for the past 4 days he has felt wobbly and lethargic with decreased appetite and lightheadedness in the morning upon rising. Patients contributes that patient had not been adhering to his normal routine for the past 4 days and instead was sleeping more than usual, but was back to his normal morning routing today. Additionally, patient notes that his neighbor was recently diagnosed with PNA. Patient denies current dizziness, lightheadedness, chest pain, headache, changes to vision, fevers, chills, cough, diarrhea, abdominal pain, blood in his stool, dysuria. On ROS patient admits to tinging in his left arm which he attributes to a ganglion cyst surgery. Additionally, patient states that approximately 4-5 weeks ago he stopped taking lyrica due to bilateral ankle swelling. Patient admits to starting a new medication Gabapentin 2 weeks ago (not sure of dosage). PMHx: HTN, HLD, GERD, constipation, spinal degenerative disease with disc herniation, prostate cancer s/p radiation Home Medications: - AM- Rapaflow 8 mg PO daily, suboxone 8 mg PO, escitalopram 10 mg PO daily, omeprazole 20 mg PO daily, lisinopril/HCTZ 20/25 mg PO daily, multivitamin, vitamin C 500 mg PO daily, osteo biflex joint health, digestive probiotic - PM- Atenolol 50 mg PO daily, simvastatin 40 mg PO daily, suboxone 8 mg PO daily, mirtazepine 15 mg PO daily, trazodone 50 mg PO daily, ASA 81 mg PO daily Allx: NKDA PSHx: - spinal injections - inguinal hernia 2002 and 2011 - left ganglion cyst FHx: Denies, patient adopted Social: - smokes half a pack a day, used to smoke 1 1/2 pack per day, duration 50 years - history of alcohol abuse, stopped drinking 15 months ago - history of recreational drug abuse; stopped heroin use in 2001, stopped Percocet and oxycodone use in 05/21 Code: Full Code PMD: Dr. Adan Sharma Patient admitted to telemetry. Cardiology, nephrology, and psychiatry on the case. Detail of workup noted below. Discharge diagnoses: 1) Pneumonia * CXR 11/15 - Patchy opacities at left lung base. Correlate clinically for pneumonia. Cardiomegaly. Atherosclerotic calcification of the aorta. * CT chest (11/16/17); resolution of previous noted large areas of ground glass density infiltrate with stable nodule in the right upper lobe measuring roughy 6 mL. residual subpleural consolidation in the lingula and left lower lobe. New juxtapleural nodue in right lower lobe measuring 7mm * Rocephin 1 gram IVPB daily and Azithromycin 500mg IVPB daily during hospitalization * Duoneb 3ml RQ6H scheduled * Tylenol 650mg PO Q6H PRN pain * Legionella: negative * Mycoplasma IGM: negative * Blood cultures X2: negative for 72 hours X2 * Mucinex 600mg PO bid * He was advised he will need to f/u with his PMD for his pneumonia and flu vaccinations. He will need f/u with pulm for nodules once completes treatment for pneumonia and will need repeat chest xray to show pneumonia has cleared * Discharge on Avelox 400mg once a day 5 days to recover from pneumonia * he will need to f/u with PMD for pneumonia vaccination, follow-up chest xray * patient is aware he has pulmonary nodules, advised to stop smoking, and will need to be monitored once he has finish antibiotic treatment 2) Hypotension-->resolved * multifactorial: polypharmacy, pneumonia * Troponin negative, d-dimer negative * Patient is off IV fluids * Procalcitonin: low * TSH low, needs repeat thyroid studies as outpatient 3) Acute Renal Failure-->Resolved * Antihypertensives held on admission * Nephro consulted (Dr. Chung). Help appreciated-->signed off * Resolved with IV fluids * held beta/diuretic/ashley given renal failure 4) HTN, history of-->chronic * Antihypertensives held on admission * held beta/diuretic/ashley given renal failure during hospitalization. * Aspirin 81mg once day * Patient to be discharge on Norvasc 5mg once a day (30 tabs/0) 5) Lipid disorder-->chronic * Statin held given renal failure on admission * Lipid panel: 127 TG, 126 chol, 66 LDL, 26 HDL * Will restart simvastatin 40mg POqHS on discharge 6) Chronic Back Pain-->chronic * Psych consulted (Dr. Kincaid). Help appreciated --> Possible restart suboxone * Trazodone 50 mg po HS * Lexapro 10 mg po daily * Increase to home dose: Mirtazapine 15 mg po daily (renal adjusted) (takes higher dose at home) * Patient to f/u with psychiatry for adjustment in medications and pain management. Patient advised to hold on steroid injections until he recovers from pneumonia. 7) History of Gastritis-->chronic * Pepcid 20mg PO daily 8) Hx prostate CA-->chronic * Start Rapaflow 8mg PO daily * Bladder scan Q shift * Patient has pending f/u appointment with his urologist 9) Abnormal EKG-->Resolved * Cardiology consulted (Dr. Ozuna). Help appreciated. * LAFB on ekg * echo: left ventricle systolic function is normal. EF: 55-60%, no aortic regurgitation is present. mitral regurgitation is mild. mild tricupsid regurgitation, mild pulmonary hypertension, mild pulmonic valvular regurgitation 10) Lower leg edema * no dvt on US * patient attributes to Lyrica * Nonpitting * start low dose norvasc-->monitor if edema becomes worse or not 11) Superifical abdominal wound * Wound care and dressing * avoid DVT injection shots to the site 12) PPx * Heparin 5000 mg SC Q8 * Activity: Bedrest, bathroom comode * Pepcid 20mg PO daily Medications on discharge: 1) Norvasc 5mg PO daily (30/0) 2) Rapaflow 8mg PO daily (14/0) 3) Avelox 400mg PO daily (5/0) Patient to f/u urology for prostate cancer refill rapaflo. Patient to f/u PMD for BP check, pneumonia vaccine, and repeat chest xray. Patient has pulmonary nodules in light of smoking history-->advised to stop smoking to reduce risk of lung cancer. He is aware. Patient has pending appointment with Dr. Kincaid in the next 10-11 days. This is a summary of patient's hospitalization. Please see EMR for further detail of record. - Date & Time of H&P Date of H&P: 11/19/17 Time of H&P: 18:23 Discharge Exam - Head Exam Head Exam: ATRAUMATIC, NORMAL INSPECTION - Eye Exam Eye Exam: EOMI, PERRL - ENT Exam ENT Exam: Mucous Membranes Moist - Respiratory Exam Respiratory Exam: Decreased Breath Sounds, NORMAL BREATHING PATTERN. absent: Rales, Rhonchi, Respiratory Distress - Cardiovascular Exam Cardiovascular Exam: REGULAR RHYTHM, +S1, +S2 - GI/Abdominal Exam GI & Abdominal Exam: Normal Bowel Sounds, Soft. absent: Distended, Firm, Guarding, Tenderness - Extremities Exam Extremities exam: pedal edema (mild localized at the kayla, nonpitting, varcosities), pedal pulses present - Neurological Exam Neurological exam: Alert, Oriented x3 - Psychiatric Exam Psychiatric exam: Normal Affect, Normal Mood - Skin Skin Exam: Dry, Intact, Normal Color, Warm Discharge Plan - Discharge Medications Prescriptions: amLODIPine [Norvasc] 5 mg PO DAILY #30 tab guaiFENesin [Mucinex LA] 600 mg PO BID 5 Days tab Moxifloxacin [Avelox] 400 mg PO DAILY #5 tab Silodosin [Rapaflo] 8 mg PO DAILY #14 capsule - Follow Up Plan Condition: STABLE Disposition: HOME/ ROUTINE Instructions: Moxifloxacin (Systemic), Kidney Failure (DC), Pneumonia, Adult ( DC), Amlodipine, Acute Kidney Injury (DC) Referrals: Mirna Kincaid MD [Staff Provider] - Adan Sharma [Staff Provider] - 1 Week
--- NOTE | 2017-11-19 08:28 | CARD ---
APPROVED REPORT Date of service: 11/15/2017 EKG Measurement Heart [id number] <Conclusion> Normal sinus rhythm Left anterior fascicular block Abnormal ECG
[2017-11-19 08:42] LABS: BASO % 0.4 % (0.0-2.0); EOS # 0.2 K/uL (0.0-0.7); EOS % 2.7 % (0.0-4.0); HEMOGLOBIN 13.1 g/dL (12.0-18.0); LYMPH # 3.3 K/uL (1.0-4.3); LYMPH % 37.7 % (20.0-40.0); MEAN CELL VOLUME 88.1 fL (80.0-94.0); MEAN CORPUSCULAR HEMOGLOBIN 30.4 pg (27.0-31.0); MEAN CORPUSCULAR HGB CONC 34.5 g/dL (33.0-37.0); MEAN PLATELET VOLUME 7.1 fL (7.2-11.7); MONO # 0.5 K/uL (0.0-0.8); MONO % 5.2 % (0.0-10.0); NEUT # 4.7 K/uL (1.8-7.0); NRBC % 0.1 % (0.0-2.0); RBC 4.32 Mil/uL (4.40-5.90); RED CELL DISTRIBUTION WIDTH 14.4 % (11.5-14.5); WHITE BLOOD COUNT 8.7 K/uL (4.8-10.8)
[2017-11-19 09:01] LABS: ALB/GLOB RATIO 1.4 (1.0-2.1); ALBUMIN 4.4 g/dL (3.5-5.0); ALT/SGPT 23 U/L (21-72); AST/SGOT 33 U/L (17-59); BLOOD UREA NITROGEN 13 mg/dL (9-20); CALCIUM 9.7 mg/dl (8.6-10.4); GFR NON-AFRICAN AMERICAN > 60
[2017-11-19 09:26] VITALS: BP 138/82; PULSE 73; TEMP 98.2; O2SAT 92
[2017-11-19] MEDS: Saccharomyces Boulardi 250 mg Cap PO SCH (09:57)
[2017-11-19] MEDS: Multiple Vitamins Tab PO SCH (09:57)
[2017-11-19] MEDS: Buprenorphine Hydrochloride 8 mg SL SCH (09:57)
[2017-11-19] MEDS: guaiFENesin 600 mg ER Tab PO SCH (09:57)
[2017-11-19] MEDS: Azithromycin 500 MG in Sodium Chloride 0.9% 250 ML IVPB SCH (10:08)
== END 2017-11-19 11:00 | disposition home or self-care (01) | DRG 194 ==
LOC: C.ER 11:56 → C.9E 14:41 → C.6T 19:09
PROVIDERS: ADMIT Hospitalist; ATTEND Hospitalist
DX: J18.9 Pneumonia, unspecified organism (principal); N17.9 Acute kidney failure, unspecified; I95.9 Hypotension, unspecified; N40.0 Benign prostatic hyperplasia without lower urinary tract symptoms; I44.4 Left anterior fascicular block; F17.210 Nicotine dependence, cigarettes, uncomplicated; E78.00 Pure hypercholesterolemia, unspecified; K21.9 Gastro-esophageal reflux disease without esophagitis; M51.26 Other intervertebral disc displacement, lumbar region; K29.70 Gastritis, unspecified, without bleeding; Z85.46 Personal history of malignant neoplasm of prostate; T50.2X5A Adverse effect of carbonic-anhydrase inhibitors, benzothiadiazides and other diuretics, initial encounter; N28.1 Cyst of kidney, acquired

== ENCOUNTER 2017-12-26 09:58 | Emergency (ER) | payer MEDICARE, BC ==
[2017-12-26 09:58] VITALS: BMI 24.8
--- NOTE | 2017-12-26 11:51 | C.PDOC ---
History Of Present Illness The patient reports that he fell out of bed 2 days and felt pain to the left side of the ribs. The patient reports that the pain is worsened with deep breathing and movement. Denies other injuries, SOB, hemoptysis, numbness, weakness, abdominal pain, or vomiting. Time Seen by Provider: 12/26/17 10:22 Chief Complaint (Nursing): Rib Injury History Per: Patient History/Exam Limitations: no limitations Onset/Duration Of Symptoms: Persistent Current Symptoms Are (Timing): Still Present Pain Scale Rating Of: 8 Quality: sharp Recent travel outside of the [place]: No Past Medical History - Medical History PMH: Anxiety, Back Problems, HTN, Hypercholesterolemia, Malignancy (Prostate) Denies: Chronic Kidney Disease - [facility] DETOXIFICATION SERVICES FOR SUBSTANCE ABUSE TREATMENT (04/14/17) DX ULTRASOUND NEC (01/21/13) INDIV PSYCHOTHERAPY FOR SUBSTANCE ABUSE TREATMENT, SUPPORT (04/14/17) INDIV PSYCHOTHERAPY FOR SUBSTANCE ABUSE, COGNITIV BEHAVIORAL (04/14/17) INDIV PSYCHOTHERAPY FOR SUBSTANCE ABUSE, PSYCHOEDUCATION (04/14/17) PERCUTAN NEEDLE BIOPSY OF PROSTATE (01/21/13) Family History: States: Unknown Family Hx - Social History Hx Tobacco Use: Yes Hx Alcohol Use: No Hx Substance Use: No - Immunization History Hx Tetanus Toxoid Vaccination: Yes Hx Influenza Vaccination: Yes Hx Pneumococcal Vaccination: Yes Review Of Systems Constitutional: Negative for: Fever, Weakness Cardiovascular: Negative for: Chest Pain, Palpitations, Edema Respiratory: Positive for: Pleuritic Pain. Negative for: Cough Gastrointestinal: Negative for: Nausea, Vomiting Genitourinary: Negative for: Dysuria, Frequency Neurological: Negative for: Numbness Physical Exam - Physical Exam Appears: Non-toxic, No Acute Distress Skin: Normal Color, Warm, No Rash, No Ecchymosis Head: Atraumatic, Normacephalic Eye(s): bilateral: Normal Inspection, PERRL Oral Mucosa: Moist Neck: Normal ROM, No Midline Cervical Tenderness, No Paracervical Tenderness, Supple Chest: Symmetrical, Tenderness ((+) tenderness to the left 7th, 8th ribs), No Ecchymosis, No Subcutaneous Emphysema Cardiovascular: Rhythm Regular, No Friction Rub, No Murmur Respiratory: Normal Breath Sounds, No Rales, No Rhonchi, No Stridor, No Wheezing Gastrointestinal/Abdominal: Soft, No Tenderness Back: Normal Inspection, No CVA Tenderness Extremity: Normal ROM, No Tenderness Gait: Steady ED Course And Treatment O2 Sat by Pulse Oximetry: 95 (on RA) Pulse Ox Interpretation: Normal Progress Note: The patient's vitals are WNLs. xrays show (+) non-displaced fractures to ribs 7,8, and 9. Lungs remains CTA, no retractions or stridor. Disposition - Disposition Referrals: Adan Sharma [Staff Provider] - Disposition: HOME/ ROUTINE Disposition Time: 11:49 Condition: STABLE Additional Instructions: Follow up with the medical doctor within 1-2 days. Return if worsened. Prescriptions: Lidocaine 5% [Lidoderm] 1 each TP DAILY #10 patch Naproxen 375 mg PO BID #20 tablet Instructions: Bruised Rib (DC) Forms: [facility] (Mongolian) - Clinical Impression Clinical Impression: Rib contusion
[2017-12-26] MEDS ORDERED: Lidocaine 5% Patch TD ONE (11:53)
[2017-12-26 11:54] VITALS: BP 113/76; PULSE 74; RESP 20; TEMP 98.9; O2SAT 95
[2017-12-26] MEDS ORDERED: Lidocaine 5% Patch TD STA (11:54)
--- NOTE | 2017-12-26 14:06 | RAD ---
Date of service: 12/26/2017 PROCEDURE: Radiographs of the Chest and Left Ribs. HISTORY: left sided rib injury pain to 8-9 rib COMPARISON: None available. TECHNIQUE: Frontal radiograph of the chest and multiple oblique radiographs of the left ribs were obtained. FINDINGS: LEFT RIBS: Left 7th, 8th-9th and 10th rib nondisplaced fractures are suggested series 4, image 1 LUNGS: Left inferolateral pleural parenchymal thickening reaction with trace discoid like atelectatic changes left lung base laterally PLEURA: No gross pneumothorax. Minimal left pleural effusion +/-left pleural thickening noted. CARDIOVASCULAR: Enlarged heart. Possible minimal pulmonary vascular congestion.-chronicity unknown No aortic atherosclerotic calcification present OTHER FINDINGS: Thoraco lumbar scoliosis and spondylosis. IMPRESSION: Multiple nondisplaced left rib fractures with small left pleural effusion/left pleural reaction thickening. No gross pneumothorax. Other findings as above. Comments: Study marked for PA review .
== END 2017-12-26 11:56 | disposition home or self-care (01) ==
LOC: C.ER 09:58
DX: S20.212A Contusion of left front wall of thorax, initial encounter (principal); W06.XXXA Fall from bed, initial encounter; Y92.003 Bedroom of unspecified non-institutional (private) residence as the place of occurrence of the external cause